=== PATIENT | female | born 1995 | race Caucasian/White ===

== ENCOUNTER → 2018-04-15 14:15 | Outpatient (CLI) | payer OTHER, SELFPAY ==
--- NOTE | 2018-04-15 14:18 | US_ITS ---
US transvaginal HISTORY: ITS.REASON: pelvic pain ORDERING PHYSICIAN: Sanchez Ivan MD PATIENT AGE: 23 years Comparison: None FINDINGS: Uterus measures 6 x 2.7 x 3.9 cm with a combined endometrial thickness of 2 mm. The uterus is retroverted. No obvious uterine mass. Endometrium has a smooth appearance. Left ovary is 2.7 x 2 cm and contains multiple small follicles. Right ovary is 3.8 x 2.2 cm and contains multiple small follicles the largest at approximately 1 cm. There is bilateral ovarian blood flow. No cul-de-sac fluid evident. IMPRESSION: 1. Retroverted uterus. 2. Polycystic appearance of the ovaries
== END ==
PROVIDERS: PCP Family Medicine; Visit Provider Obstetrics & Gynecology
DX: R10.2 Pelvic and perineal pain (principal)
CPT/HCPCS: 76830

== ENCOUNTER → 2018-05-06 10:35 | Outpatient (CLI) | payer OTHER, SELFPAY ==
[2018-05-06 10:39] LABS: Microscopic, Urine URINE MICROSCOPIC (MICROSCOPIC)
[2018-05-06 11:30] LABS: Basophils % 0.5 % (0.1-2.0); Eosinophils # 0.1 K/mm3 (0.0-0.4); Eosinophils % 0.8 % (0.1-12.0); Hemoglobin 13.3 g/dL (12.2-16.2); Lymphocytes % 28.1 K/mm3 (10-50); Mean Corpuscular HGB Conc 30.9 g/dL (31.8-35.4); Mean Corpuscular Hemoglobin 27.3 pg (27.0-31.2); Mean Corpuscular Volume 88.5 fl (81-99); Mean Platelet Volume 7.6 fl (7.4-10.4); Monocytes # 0.3 K/mm3 (0.1-1.0); Monocytes % 4.4 % (1.7-9.3); Neutrophils # 4.7 K/mm3 (1.8-7.8); Neutrophils % 66.1 % (37.0-80.0); Platelet Count 310 K/mm3 (142-424); Red Blood Count 4.86 M/mm3 (4.20-5.40); Red Cell Distribution Width 13.2 % (11.5-17.5); White Blood Count 7.2 K/mm3 (4.8-10.8)
[2018-05-06 12:06] LABS: Urine Pregnancy, HCG Qual. Negative (Negative)
[2018-05-06 12:18] LABS: Appearance,Urine CLEAR (Clear); Bilirubin,Urine Negative (Negative); Blood, Urine Negative (Negative); Color,Urine YELLOW (Yellow); Glucose,Urine (UA) Negative (Negative); Ketones,Urine TRACE (Negative); Leukocyte Esterase,Urine Negative (Negative); Nitrate,Urine Negative (Negative); PH,Urine 5.5 (5.0-8.5); Protein,Urine Negative (Negative); Specific Gravity, Urine >= 1.030 (1.005-1.030); Urobilinogen,Urine 0.2 EU/dl (0.2)
[2018-05-06 12:28] LABS: Bacteria,Urine Trace /lpf; Squamous Epithelial Cell,Urine Occasional #/hpf (0-5)
[2018-05-06 12:29] LABS: Mucus,Urine 3+ /lpf
[2018-05-06 12:33] LABS: Alanine Aminotransferase 28 U/L (12-78); Albumin Level 3.6 gm/dL (3.4-5.0); Alkaline Phosphatase 73 U/L (46-116); Anion Gap 13.9 mEq/L (5-15); Aspartate Amino Transferase 21 U/L (15-37); Bilirubin,Total 0.1 mg/dL (0.2-1.0); Blood Urea Nitrogen 12 mg/dL (7-18); Calcium 8.7 mg/dL (8.5-10.1); Carbon Dioxide 27 mmol/L (21.0-32.0); Chloride 106 mmol/L (98-107); Estimated Glomerular Filt Rate 104 ml/min (>60); GFR (African American) 125 ML/MIN (>60); Globulin 3.6 gm/dl (1.3-3.2); Glucose 93 mg/dL (74-106); Potassium 3.9 mmoL/L (3.5-5.1); Sodium 143 mmol/L (136-145); Total Protein,Serum 7.2 gm/dL (6.4-8.2)
== END ==
PROVIDERS: Visit Provider Obstetrics & Gynecology
DX: Z01.818 Encounter for other preprocedural examination (principal); R10.2 Pelvic and perineal pain
CPT/HCPCS: 36415; 80053; 81001; 81025; 85025

== ENCOUNTER → 2018-08-02 14:26 | Outpatient (REF) | payer OTHER, SELFPAY ==
[2018-08-02 14:33] LABS: Adenovirus F 40/41, stool Not Detected (NotDetected); Astrovirus Not Detected (NotDetected); Campylobacter Not Detected (NotDetected); Clostridium Difficile A/B, PCR Not Detected (NotDetected); Cryptosporidium Not Detected (NotDetected); Cyclospora Cayetanesis Not Detected (NotDetected); Entamoeba histolytica Not Detected (NotDetected); Enteroaggregative E coli Not Detected (NotDetected); Enteropathogenic E coli Not Detected (NotDetected); Enterotoxigenic E coli Not Detected (NotDetected); Giardia lamblia Not Detected (NotDetected); Norovirus Not Detected (NotDetected); Plesimonas Shigalloides, PCR Not Detected (NotDetected); Rotavirus A Not Detected (NotDetected); Salmonella, PCR Not Detected (NotDetected); Sapovirus Not Detected (NotDetected); Shiga-like toxin E coli Not Detected (NotDetected); Shigella Enterovasive E coli Not Detected (NotDetected); Vibrio Cholerae Not Detected (NotDetected); Vibrio, PCR Not Detected (NotDetected); Yersinia Entercolitica, PCR Not Detected (NotDetected)
== END ==
LOC: LAB 14:26
PROVIDERS: Visit Provider Nurse Practitioner Family
DX: R19.7 Diarrhea, unspecified (principal); K52.9 Noninfective gastroenteritis and colitis, unspecified
CPT/HCPCS: 87507

== ENCOUNTER → 2018-10-07 16:05 | Outpatient (CLI) | payer OTHER, SELFPAY ==
[2018-10-07 19:01] LABS: Glucose,Random 83 mg/dL (70-110)
[2018-10-11 10:35] LABS: Estrogen 181 pg/mL (.)
== END ==
PROVIDERS: Visit Provider Obstetrics & Gynecology
DX: E05.90 Thyrotoxicosis, unspecified without thyrotoxic crisis or storm (principal); Z13.1 Encounter for screening for diabetes mellitus; R68.82 Decreased libido
CPT/HCPCS: 36415; 82672; 82947; 84443

== ENCOUNTER → 2018-11-08 09:30 | Outpatient (POV) | payer OTHER, SELFPAY | PROVIDERS: Visit Provider Nurse Practitioner Acute Care | DX: Z00.00 Encounter for general adult medical examination without abnormal findings (principal) ==

== ENCOUNTER → 2018-12-22 07:15 | Outpatient (CLI) | payer OTHER, SELFPAY ==
[2018-12-24 12:26] LABS: H. pylori Breath Test Positive (Negative)
== END ==
PROVIDERS: Visit Provider Nurse Practitioner Acute Care
DX: K30 Functional dyspepsia (principal)
CPT/HCPCS: 83013

== ENCOUNTER → 2018-12-27 09:23 | Outpatient (POV) | payer OTHER, SELFPAY | PROVIDERS: Visit Provider Nurse Practitioner Acute Care | DX: Z00.00 Encounter for general adult medical examination without abnormal findings (principal) ==

== ENCOUNTER → 2019-02-15 08:19 | Outpatient (CLI) | payer OTHER, SELFPAY ==
[2019-02-16 14:28] LABS: H. pylori Breath Test Negative (Negative)
== END ==
PROVIDERS: Visit Provider Nurse Practitioner Acute Care
DX: K30 Functional dyspepsia (principal)
CPT/HCPCS: 83013

== ENCOUNTER → 2019-03-04 11:01 | Outpatient (CLI) | payer OTHER, SELFPAY ==
[2019-03-04 13:11] LABS: Monoscreen (Rapid) Negative (Negative)
[2019-03-05 18:02] LABS: EBV Ab VCA, IgM <36.0 U/mL (0.0-35.9); EBV Nuclear Antigen Ab, IgG 32.8 U/mL (0.0-17.9); Epstein-Barr Virus Early Ag Ab <9.0 U/mL (0.0-8.9)
== END ==
PROVIDERS: Visit Provider Nurse Practitioner
DX: R53.83 Other fatigue (principal)
CPT/HCPCS: 36415; 86318; 86663; 86664; 86665

== ENCOUNTER → 2019-05-09 15:07 | Outpatient (POV) | payer OTHER, BC, SELFPAY | PROVIDERS: PCP Nurse Practitioner; Visit Provider Nurse Practitioner Family | DX: Z00.00 Encounter for general adult medical examination without abnormal findings (principal) ==

== ENCOUNTER → 2019-05-10 06:36 | Outpatient (CLI) | payer OTHER, BC, SELFPAY ==
[2019-05-10 06:56] LABS: Basophils # 0.1 K/mm3 (0-0.2); Basophils % 0.8 % (0.1-2.0); Eosinophils # 0.1 K/mm3 (0.0-0.4); Hematocrit 38.8 % (37.0-47.0); Lymphocytes # 2.6 K/mm3 (0.7-4.5); Lymphocytes % 41.3 % (10-50); Mean Corpuscular HGB Conc 30.8 g/dL (31.8-35.4); Mean Corpuscular Volume 84.3 fl (81-99); Mean Platelet Volume 8.4 fl (7.4-10.4); Monocytes # 0.3 K/mm3 (0.1-1.0); Monocytes % 4.2 % (1.7-9.3); Neutrophils # 3.3 K/mm3 (1.8-7.8); Neutrophils % 51.7 % (37.0-80.0); Platelet Count 309 K/mm3 (142-424); Red Blood Count 4.61 M/mm3 (4.20-5.40); Red Cell Distribution Width 13.8 % (11.5-17.5); White Blood Count 6.3 K/mm3 (4.8-10.8)
[2019-05-10 07:07] LABS: Alanine Aminotransferase 26 U/L (12-78); Albumin Level 3.3 gm/dL (3.4-5.0); Albumin/Globulin Ratio 0.8 (1.1-1.8); Alkaline Phosphatase 67 U/L (46-116); Anion Gap 11.3 mEq/L (5-15); Aspartate Amino Transferase 23 U/L (15-37); Bilirubin,Total 0.2 mg/dL (0.2-1.0); Blood Urea Nitrogen 11 mg/dL (7-18); Calcium 8.7 mg/dL (8.5-10.1); Carbon Dioxide 28 mmol/L (21.0-32.0); Chloride 106 mmol/L (98-107); Creatinine,Serum 0.71 mg/dL (0.55-1.02); Estimated Glomerular Filt Rate 101 ml/min (>60); GFR (African American) 122 ML/MIN (>60); Glucose 93 mg/dL (74-106); Potassium 4.3 mmoL/L (3.5-5.1); Sodium 141 mmol/L (136-145); Total Protein,Serum 7.3 gm/dL (6.4-8.2)
[2019-05-10 07:29] LABS: HCG Qualitative, Serum Negative (Negative)
--- NOTE | 2019-05-10 09:45 | CT_ITS ---
CT abdomen pelvis w con CLINICAL INDICATION: ITS.REASON: LLQ PAIN, ABD BLOATING ORDERING PHYSICIAN: Rachael Hooper APRN PATIENT AGE: 24 years COMPARISON: None TECHNIQUE: Contrast Used:75ml Optiray 350 Oral Contrast: 450ml Redicat Axial images obtained with sagittal and coronal reformats. All CT scans at the facility use one or more dose reduction, viz: automated exposure control, ma/kV adjustment per patient size (including targeted exams where dose is matched to indication, i.e. head), or iterative reconstruction technique. FINDINGS: There is a 4 mm noncalcified nodule right lung base laterally and a 4 mm noncalcified nodule in the left lung bases and pleural region laterally. The liver, spleen, adrenal glands, pancreas, gallbladder, and kidneys have an unremarkable appearance. No renal or ureteral calculi. No hydronephrosis. Prior appendectomy. No intestinal obstruction or free air. No evidence of diverticulitis. No pelvic mass abnormal fluid collection or focal inflammatory change. No acute bony anomalies. Tiny umbilical hernia. No inguinal hernia. IMPRESSION: No acute finding CT abdomen pelvis.
== END ==
PROVIDERS: Visit Provider Nurse Practitioner Family
DX: R10.32 Left lower quadrant pain (principal); R14.0 Abdominal distension (gaseous)
CPT/HCPCS: 36415; 74177; 80053; 84703; 85025; Q9967

== ENCOUNTER → 2019-06-20 13:16 | Outpatient (POV) | payer OTHER, BC, SELFPAY | PROVIDERS: PCP Nurse Practitioner; Visit Provider Nurse Practitioner Family | DX: Z00.00 Encounter for general adult medical examination without abnormal findings (principal) ==

== ENCOUNTER → 2019-06-23 10:13 | Outpatient (CLI) | payer OTHER, BC, SELFPAY ==
--- NOTE | 2019-06-23 10:42 | US_ITS ---
PROCEDURE: US TRANSVAGINAL CLINICAL INDICATION: PELVIC PAIN COMPARISON: TRANVAG US transvaginal from 04/15/2018 FINDINGS: The uterus measures 7 x 3 x 5 cm with a combined endometrial thickness of 4 mm. The uterus is retroverted. There is a minimal amount of fluid in the cul-de-sac. No uterine mass. There is a small nabothian cyst The left ovary is 2.6 x 2.2 cm and contains small follicles. The right ovary is 2.7 x 1.6 cm also containing small follicles. IMPRESSION: Retroverted uterus with small amount of fluid in the cul-de-sac otherwise negative Dictated by: Ulisses Puga MD 06/23/2019 11:38 Signed by: <Electronically signed by Ulisses Puga MD in [place]> 06/23/2019 11:38
== END ==
PROVIDERS: PCP Nurse Practitioner; Visit Provider Obstetrics & Gynecology
DX: R10.2 Pelvic and perineal pain (principal)
CPT/HCPCS: 76830

== ENCOUNTER → 2019-07-07 07:30 | Outpatient (CLI) | payer OTHER, BC, SELFPAY ==
[2019-07-08 14:32] LABS: Miscellaneous Test COMMENT:
== END ==
PROVIDERS: PCP Family Medicine; Visit Provider Family Medicine
DX: R10.9 Unspecified abdominal pain (principal)
CPT/HCPCS: 36415

== ENCOUNTER → 2019-09-26 12:57 | Outpatient (POV) | payer OTHER, BC, SELFPAY ==
[2019-09-26 17:21] LABS: Alanine Aminotransferase 47 U/L (12-78); Albumin/Globulin Ratio 1.2 (1.1-1.8); Alkaline Phosphatase 93 U/L (46-116); Amylase 113 U/L (25-115); Anion Gap 15.8 mEq/L (5-15); Aspartate Amino Transferase 31 U/L (15-37); Bilirubin,Total 0.3 mg/dL (0.2-1.0); Blood Urea Nitrogen 10 mg/dL (7-18); Calcium 9.1 mg/dL (8.5-10.1); Carbon Dioxide 24 mmol/L (21.0-32.0); Chloride 105 mmol/L (98-107); Creatinine,Serum 0.75 mg/dL (0.55-1.02); Estimated Glomerular Filt Rate 95 ml/min (>60); GFR (African American) 115 ML/MIN (>60); Globulin 3.4 gm/dl (1.3-3.2); Glucose 77 mg/dL (74-106); Lipase 206 u/L (73-393); Potassium 3.8 mmoL/L (3.5-5.1); Sodium 141 mmol/L (136-145); Total Protein,Serum 7.4 gm/dL (6.4-8.2)
[2019-09-29 06:11] LABS: H. pylori Breath Test Negative (Negative)
== END ==
PROVIDERS: PCP Family Medicine; Visit Provider Nurse Practitioner Family
DX: B96.81 Helicobacter pylori [H. pylori] as the cause of diseases classified elsewhere (principal); K58.9 Irritable bowel syndrome, unspecified; R74.8 Abnormal levels of other serum enzymes
CPT/HCPCS: 36415; 80053; 82150; 83013; 83690

== ENCOUNTER → 2019-11-22 14:54 | Outpatient (CLI) | payer OTHER, BC, SELFPAY ==
--- NOTE | 2019-11-22 15:00 | CT_ITS ---
PROCEDURE: CT CHEST WO CON CLINICAL INDICATION: PULMONARY NODULES COMPARISON: ABDPELW CT abdomen pelvis w con from 05/10/2019 TECHNIQUE: Axial images obtained with sagittal and coronal reformats. All CT scans at the facility use one or more dose reduction, viz: automated exposure control, ma/kV adjustment per patient size (including targeted exams where dose is matched to indication, i.e. head), or iterative reconstruction technique. FINDINGS: Scattered small lymph nodes are present in the axilla. There is soft tissue density in the anterior mediastinum consistent with residual thymic tissue. No mediastinal or hilar mass or adenopathy. Normal heart size. There is a stable 4 mm nodule in the right lower lobe the. No lobar consolidation or collapse is evident. Subpleural nodular opacity is present in the left lower lobe laterally at 3 mm unchanged. No acute bony findings. Upper abdominal images are unremarkable. IMPRESSION: There are 2 small nodular opacities in the lung bases as described above which are stable and are probably benign. No other significant anomalies are evident. Dictated by: Ulisses Puga MD 11/23/2019 16:19 Electronically signed by Ulisses Puga MD in [place] 11/23/2019 16:19
== END ==
PROVIDERS: Visit Provider Nurse Practitioner
DX: R91.8 Other nonspecific abnormal finding of lung field (principal)
CPT/HCPCS: 71250

== ENCOUNTER → 2020-06-08 20:55 | Outpatient (CLI) | payer OTHER, BC, SELFPAY ==
[2020-06-08 22:15] LABS: Coronavirus 19 IgG Antibody Positive (Negative); Coronavirus 19 IgM Antibody Negative (Negative)
== END ==
PROVIDERS: Visit Provider Physician Assistant
DX: Z20.828 Contact with and (suspected) exposure to other viral communicable diseases (principal)
CPT/HCPCS: 36415; 86328

== ENCOUNTER → 2020-06-14 19:41 | Outpatient (CLI) | payer OTHER, BC, SELFPAY ==
[2020-06-14 20:22] LABS: T4 (Thyroxine) 14.4 ug/dl (5.53-11.0)
[2020-06-14 20:36] LABS: Thyroid Stimulating Hormone 1.13 uIU/mL (0.465-4.68)
== END ==
PROVIDERS: Visit Provider Nurse Practitioner
DX: E03.9 Hypothyroidism, unspecified (principal)
CPT/HCPCS: 36415; 84436; 84443

== ENCOUNTER → 2020-06-26 18:42 | Outpatient (CLI) | payer OTHER, BC, SELFPAY ==
--- NOTE | 2020-06-26 18:48 | XR_ITS ---
PROCEDURE: XR LUMBAR SPINE MIN 4V CLINICAL INDICATION: LOW BACK PAIN,SCIATICA ON RIGHT SIDE COMPARISON: CT ABDPELW CT abdomen pelvis w con from 05/10/2019 FINDINGS: No fracture or dislocation. No lytic or blastic change. There is normal mineralization. There is normal alignment. No fracture or dislocation. No lytic or blastic change. Other findings:None. IMPRESSION: No acute findings. Dictated by: Ulisses Puga MD 06/26/2020 21:34 Ulisses Puga MD in [place] 06/26/2020 21:34
== END ==
PROVIDERS: Visit Provider Nurse Practitioner
DX: M54.41 Lumbago with sciatica, right side (principal)
CPT/HCPCS: 72110

== ENCOUNTER → 2020-07-31 19:52 | Outpatient (CLI) | payer OTHER, BC, SELFPAY ==
[2020-07-31 20:56] LABS: 25-OH Vitamin D, Total 78.8 ng/mL (30-100)
== END ==
PROVIDERS: Visit Provider Nurse Practitioner
DX: E55.9 Vitamin D deficiency, unspecified (principal)
CPT/HCPCS: 36415; 82306

== ENCOUNTER → 2021-07-31 12:44 | Outpatient (CLI) | payer BC, SELFPAY ==
[2021-07-31 13:18] LABS: Coronavirus 19, PCR Not Detected (NotDetected); Influenza A, PCR Not Detected (NotDetected); Influenza B, PCR Not Detected (NotDetected)
== END ==
PROVIDERS: PCP Nurse Practitioner; Visit Provider Nurse Practitioner
DX: Z20.822 Contact with and (suspected) exposure to COVID-19 (principal)
CPT/HCPCS: C9803; U0003; U0005

== ENCOUNTER → 2021-09-04 16:15 | Outpatient (CLI) | payer BC, SELFPAY ==
[2021-09-04 18:23] LABS: Free T4 (Free Thyroxine) 0.91 ng/dl (0.78-2.19)
[2021-09-04 18:37] LABS: Thyroid Stimulating Hormone 0.62 uIU/mL (0.465-4.68)
== END ==
PROVIDERS: Visit Provider Nurse Practitioner
DX: E03.9 Hypothyroidism, unspecified (principal)
CPT/HCPCS: 36415; 84439; 84443

== ENCOUNTER → 2021-09-13 23:34 | Outpatient (CLI) | payer BC, OTHER, SELFPAY ==
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
== END ==
PROVIDERS: Visit Provider Nurse Practitioner
DX: M54.50 Low back pain, unspecified (principal)
CPT/HCPCS: 72110

== ENCOUNTER → 2021-10-01 15:22 | Outpatient (CLI) | payer BC, SELFPAY ==
--- NOTE | 2021-10-01 15:22 | US_ITS ---
PROCEDURE: US TRANSVAGINAL CLINICAL INDICATION: low left quad pain COMPARISON: US US TRANSVAGINAL from 06/23/2019 FINDINGS: Retroverted uterus UTERUS: 6cm x 4cmx 3cm with a combined endometrial thickness of 2.3mm LEFT OVARY: [id number] with a volume of 3.2ml. RIGHT OVARY: [id number] with a volume of 2.6ml. Bilateral ovarian blood flow noted. No cul-de-sac fluid IMPRESSION: Retroverted uterus otherwise negative pelvic ultrasound Dictated by: Ulisses Puga MD 10/01/2021 17:06 Ulisses Puga MD in [place] 10/01/2021 17:06
== END ==
PROVIDERS: PCP Nurse Practitioner; Visit Provider Nurse Practitioner Obstetrics & Gynecology
DX: R10.32 Left lower quadrant pain (principal)
CPT/HCPCS: 76830

== ENCOUNTER → 2022-02-22 11:49 | Outpatient (CLI) | payer BC, SELFPAY ==
[2022-02-22 14:24] LABS: Triiodothryronine (T3) Uptake 24 % (23.5-40.5)
[2022-02-22 14:25] LABS: Free Thyroxine Index 3.3 ug/dL (5.93-13.13); T4 (Thyroxine) 13.8 ug/dl (5.53-11.0)
[2022-02-22 14:38] LABS: Thyroid Stimulating Hormone 0.69 uIU/mL (0.465-4.68)
== END ==
PROVIDERS: PCP Nurse Practitioner; Visit Provider Nurse Practitioner Obstetrics & Gynecology
DX: E03.9 Hypothyroidism, unspecified (principal)
CPT/HCPCS: 36415; 84436; 84443; 84479

== ENCOUNTER → 2023-01-08 16:31 | Outpatient (CLI) | payer BC, SELFPAY ==
[2023-01-08 16:54] LABS: Basophils # 0.1 K/mm3 (0-0.2); Basophils % 1.1 % (0.1-2.0); Eosinophils # 0.2 K/mm3 (0.0-0.4); Eosinophils % 2.3 % (0.1-12.0); Hematocrit 39.8 % (37.0-47.0); Hemoglobin 12.8 g/dL (12.2-16.2); Lymphocytes % 34.2 % (10-50); Mean Corpuscular HGB Conc 32.1 g/dL (31.8-35.4); Mean Corpuscular Hemoglobin 28.8 pg (27.0-31.2); Mean Corpuscular Volume 89.7 fl (81-99); Mean Platelet Volume 7.8 fl (7.4-10.4); Monocytes # 0.3 K/mm3 (0.1-1.0); Monocytes % 3.8 % (1.7-9.3); Neutrophils # 5.1 K/mm3 (1.8-7.8); Neutrophils % 58.6 % (37.0-80.0); Platelet Count 416 K/mm3 (142-424); Red Blood Count 4.43 M/mm3 (4.20-5.40); Red Cell Distribution Width 13.2 % (11.5-17.5); White Blood Count 8.7 K/mm3 (4.8-10.8)
[2023-01-08 17:07] LABS: Alanine Aminotransferase 18 U/L (12-78); Albumin Level 4.2 g/dl (3.5-5.0); Albumin/Globulin Ratio 1.4 (1.1-1.8); Alkaline Phosphatase 61 U/L (38-126); Anion Gap 7.7 mEq/L (5-15); Aspartate Amino Transferase 29 U/L (14-36); Bilirubin,Total 0.3 mg/dl (0.2-1.3); Blood Urea Nitrogen 11 mg/dl (7-17); Calcium 8.5 mg/dl (8.4-10.2); Carbon Dioxide 27 mmol/L (22.0-30.0); Chloride 105 mmol/L (98-107); Estimated Glomerular Filt Rate 86 ml/min (>60); GFR (African American) 104 ML/MIN (>60); Globulin 2.9 g/dL (1.3-3.2); Glucose 85 mg/dl (74-100); Potassium 3.7 mmoL/L (3.5-5.1); Sodium 136 mmol/L (136-145); Total Protein,Serum 7.1 g/dl (6.3-8.2)
[2023-01-08 17:29] LABS: HCG,Quantitative < 2 mIU/ml (0-5.42)
== END ==
PROVIDERS: PCP Nurse Practitioner; Visit Provider Nurse Practitioner Obstetrics & Gynecology
DX: Z01.812 Encounter for preprocedural laboratory examination; N92.6 Irregular menstruation, unspecified
CPT/HCPCS: 36415; 80053; 84702; 85025

== ENCOUNTER 2023-01-13 05:54 | Day surgery (SDC) | payer BC, OTHER, SELFPAY ==
[2023-01-09 10:49] VITALS: BMI 34.5
[2023-01-13] VITALS (11 sets, daily range): BP systolic 139–154; BP diastolic 71–98; PULSE 48–89; RESP 16–19; TEMP 36.2–36.9; O2SAT 98–100
--- NOTE | 2023-01-13 08:06 | EXP.OP.NOTE ---
Date of procedure: 01/13/23 Pre-op Diagnosis:: Menorrhagia dysfunctional uterine bleeding Post-op Diagnosis:: Menorrhagia, dysfunctional uterine bleeding, possible endometritis Procedure performed:: Hysteroscopy, dilation and curettage Surgeon:: Bam Stapleton MD WEIGH TANK OPERATOR:: Sohan Garner Anesthesia: MAC Estimated blood loss (mL): 50 Clinical Note:: She is a 27-year-old lady who complains of extremely heavy bleeding. She has menorrhagia as far as well as bleeding between her periods. We have tried control pills and despite this she continued to have heavy bleeding. As result of that she is offered hysteroscopy D&C. Operative findings:: She had a thin endometrium that was very erythematous possibly consistent with endometritis. Both tubal ostia were seen and appeared normal. Operative note:: She was taken the operating room where MAC anesthesia was found be adequate. She was prepped draped normal sterile fashion lithotomy position. Weighted speculum is placed in vagina. The anterior lip of the cervix was grasped with a tenaculum and the cervix was then dilated to approximately 5 mm. I then inserted a hysteroscope into the uterine cavity. The findings were as previously dictated. I then performed a gentle curettage. I then injected approximately 30 cc of ropivacaine at the 3:00, 5:00, 7:00 and 9:00 positions of the cervix. She tolerated the procedure well and was taken the recovery of her next condition. All sponge, instrument and needle counts were correct. The estimated blood loss was less than 50 cc. Condition: stable Disposition: PACU Specimens:: Endometrial curettings Complications:: None
--- NOTE | 2023-01-13 08:56 | EXP.ANES.CKL ---
[facility] Disclaimer: The information contained in this section may have been updated after the patient was seen, as this information can be updated by other users. Medical History Anxiety Asthma Depression Endometriosis Generalized anxiety disorder Hypertension Hypothyroid Migraine Pelvic inflammatory disease (PID) Surgical History Hx of dilation and curettage Family History Father Family history of myocardial infarction Mother Family history of myocardial infarction Other Hypertension Social History (Updated 01/13/23 @ 06:20 by Vicky Paniagua RN) Smoking Status: Never smoker second hand exposure: No alcohol intake: never substance use type: denies use current occupational status: employed Travel in the last 8 weeks: None household members: spouse housing: house number of children: 0 current occupational exposures/hazards: No [facility] Anesthesia Checklist Patient Identification Patient Identification: Arm Band and Verbal (Name & ) Structural Data Admitted From: Home Planned Operative Procedure/s: Hysteroscopy/D&C Consent for Planned Operative Procedure(s) Verified: Yes Verified Documents: Surgical Consent NPO Status Verified Time NPO: 00:00 Chart Verification Results Verified: HCG Additional verifications Anesthesia Reactions: No Hx Blood Transfusions: No Blood Transfusion Reaction: No Airway Assessment C-Spine Mobility Assessed: Yes TMJ Mobility Assessed: Yes Dentition: Good Dentition Neurological Assessment Level of Consciousness: Awake, Alert and Appropriate Anesthesia Plan Anesthesia Risk discussed: Yes ASA Class: II Anesthesia Type: MAC
== END 2023-01-13 09:10 | disposition home or self-care (01) ==
PROVIDERS: PCP Nurse Practitioner; Visit Provider Nurse Practitioner Obstetrics & Gynecology
PROC: 0UDB8ZZ Extraction of Endometrium, Via Natural or Artificial Opening Endoscopic (ICD-10-PCS; CPT 58558; principal; 2023-01-13 07:30)
DX: N92.0 Excessive and frequent menstruation with regular cycle (principal); N93.8 Other specified abnormal uterine and vaginal bleeding; Z79.899 Other long term (current) drug therapy
CPT/HCPCS: 58558; 96374; J2405

== ENCOUNTER 2023-06-02 13:46 | Emergency (ER) | payer BC, SELFPAY ==
[2023-06-02 13:48] VITALS: BP 170/111; PULSE 87; RESP 18; TEMP 36.6; O2SAT 100; BMI 33.6
--- NOTE | 2023-06-02 14:34 | HMH.EDGENADL ---
Discharge Plan Disposition Patient Disposition: Home, Self-Care Condition: Good Prescriptions Prescriptions: No Action aripiprazole [Abilify] 5 mg tablet 5 mg PO QHS Qty: 30 1RF bupropion HCl [Wellbutrin XL] 150 mg tablet extended release 24 hr 150 mg PO DAILY Qty: 30 1RF levothyroxine 25 mcg tablet 25 mcg PO DAILY benazepril 10 mg tablet 10 mg PO DAILY Lo Loestrin Fe 1 mg-10 mcg (24)/10 mcg (2) tablet 1 tab PO DAILY Qty: 28 11RF levonorgestrel-ethinyl estrad [Aviane] 0.1-20 mg-mcg tablet 1 tab PO DAILY oxycodone-acetaminophen [Percocet] 5-325 mg Tablet 1 tab PO Q4-6H PRN (Reason: severe pain.) Qty: 6 0RF doxycycline hyclate 100 mg tablet,delayed release (DR/EC) 100 mg PO BID Qty: 30 0RF Referrals Follow up/Referrals: Shanique Acosta APRN [Primary Care Provider] - See instructions Activity Restrictions/Add. Instructions Additional Instructions/Restrictions: You were evaluated in the emergency department today. You may take Benadryl at home every 8-12 hours as you need to for symptoms. Follow-up with your primary care provider closely. I recommend stopping your aripiprazole and notifying them of the change. return to the emergency department for any new or worsening symptoms. Clinical Impressions Clinical Impression: Acute dystonic reaction due to drugs Instructions Patient Instructions: Dystonia Movement Disorders, DI for Adverse Drug Reaction -- Other Discharge ED Provider: Renetta Cervantes General Adult HPI General Chief complaint: Allergic Reaction Stated complaint: possible allergic reaction to medication, soa Time Seen by Provider: 06/02/23 14:20 Mode of Arrival: Ambulatory Source of Information: Patient Limitations: No Limitations Description of Symptoms (Recalled from ER Triage Doc. by RN): Pt reports starting new medication for anxiety/depression on 05/22/23, concerned having a reaction to medication. Pt reports 4 days ago began feeling lethargic, states has been feeling like her throat is tight and having trouble breathing. Pt reports took benadryl earlier today for throat felling swollen, also took advil because she felt feverish . Pt reports wellbutrin dosage was lowered and started on abilify on 05/22/23. History of Present Illness HPI narrative: This patient is a 28-year-old female with a history of generalized anxiety disorder presented to the emergency department for evaluation with concern for possible drug reaction. Patient reports that she started taking aripiprazole on 05/22/2023. She noted fatigue after taking it, but she was tolerating this. She stated that for the last 2 days, she has had an abnormal feeling to her tongue and feels like she cannot control her tongue movements. She also notes that her mouth twitches. Her symptoms improved with Benadryl, which she took with concern that she may be having allergic reaction, however they started to return. Given this, she decided to come to the emergency department because she was afraid that she is having an adverse drug reaction. She also takes Wellbutrin at home. She denies any other concerns at this time, such as fevers, chills, headache, vision changes, chest pain, shortness of breath, or other concerns. Related Data Home Medications Medication Instructions Recorded Confirmed levothyroxine 25 mcg tablet 25 mcg PO DAILY thyroid 07/03/21 05/22/23 benazepril 10 mg tablet 10 mg PO DAILY High blood pressure 12/16/22 05/22/23 levonorgestrel-ethinyl estradiol 1 tab PO DAILY control 01/09/23 05/22/23 0.1 mg-20 mcg tablet (Aviane) Previous Rx's Medication Instructions Recorded doxycycline hyclate 100 mg 100 mg PO BID #30 tabs 01/13/23 tablet,delayed release oxycodone-acetaminophen 5 mg-325 1 tab PO Q4-6H PRN severe pain. #6 01/13/23 mg tablet (Percocet) tabs norethindrone 1 mg-ethinyl 1 tab PO DAILY #28 tabs 04/01/23 estradiol 10 mcg (24)-iron 10 mcg(2) tablet (Lo Loestrin Fe)
[2023-06-02 14:48] LABS: Basophils # 0.1 K/mm3 (0-0.2); Basophils % 0.8 % (0.1-2.0); Eosinophils # 0.2 K/mm3 (0.0-0.4); Eosinophils % 1.9 % (0.1-12.0); Hematocrit 41.4 % (37.0-47.0); Hemoglobin 13.7 g/dL (12.2-16.2); Lymphocytes # 2.6 K/mm3 (0.7-4.5); Lymphocytes % 28.7 % (10-50); Mean Corpuscular HGB Conc 33.1 g/dL (31.8-35.4); Mean Corpuscular Hemoglobin 28.9 pg (27.0-31.2); Mean Corpuscular Volume 87.1 fl (81-99); Mean Platelet Volume 8.7 fl (7.4-10.4); Monocytes # 0.3 K/mm3 (0.1-1.0); Monocytes % 3.6 % (1.7-9.3); Neutrophils # 5.8 K/mm3 (1.8-7.8); Neutrophils % 65.1 % (37.0-80.0); Platelet Count 329 K/mm3 (142-424); Red Blood Count 4.75 M/mm3 (4.20-5.40); Red Cell Distribution Width 13.1 % (11.5-17.5); White Blood Count 8.9 K/mm3 (4.8-10.8)
[2023-06-02 15:19] LABS: Blood Urea Nitrogen 9 mg/dl (7-17); Calcium 8.9 mg/dl (8.4-10.2); Carbon Dioxide 25 mmol/L (22.0-30.0); Chloride 109 mmol/L (98-107); Creatinine Clearance Estimated 163 mL/min (50-200); Estimated Glomerular Filt Rate 100 ml/min (>60); GFR (African American) 121 ML/MIN (>60); Glucose 88 mg/dl (74-100); Sodium 141 mmol/L (136-145)
[2023-06-02 15:39] VITALS: BP 159/99; PULSE 77; RESP 20; TEMP 36.6; O2SAT 98
== END 2023-06-02 15:41 | disposition home or self-care (01) ==
PROVIDERS: Emergency Provider Emergency Medicine; PCP Nurse Practitioner
DX: R53.83 Other fatigue (principal); R06.89 Other abnormalities of breathing; G24.9 Dystonia, unspecified; T43.595A Adverse effect of other antipsychotics and neuroleptics, initial encounter; F41.1 Generalized anxiety disorder; J45.909 Unspecified asthma, uncomplicated; F33.9 Major depressive disorder, recurrent, unspecified; I10 Essential (primary) hypertension; E03.9 Hypothyroidism, unspecified
CPT/HCPCS: 80048; 85025; 96361; 96374; 99284; J2405

== ENCOUNTER → 2023-06-23 12:33 | Outpatient (CLI) | payer BC, SELFPAY ==
[2023-06-23 13:07] LABS: Basophils # 0.1 K/mm3 (0-0.2); Basophils % 0.8 % (0.1-2.0); Eosinophils # 0.2 K/mm3 (0.0-0.4); Eosinophils % 1.7 % (0.1-12.0); Hematocrit 41.4 % (37.0-47.0); Hemoglobin 13.7 g/dL (12.2-16.2); Lymphocytes # 2.9 K/mm3 (0.7-4.5); Lymphocytes % 32.2 % (10-50); Mean Corpuscular Hemoglobin 29.4 pg (27.0-31.2); Mean Corpuscular Volume 89.1 fl (81-99); Monocytes # 0.4 K/mm3 (0.1-1.0); Monocytes % 4.8 % (1.7-9.3); Neutrophils # 5.5 K/mm3 (1.8-7.8); Neutrophils % 60.5 % (37.0-80.0); Platelet Count 326 K/mm3 (142-424); Red Blood Count 4.65 M/mm3 (4.20-5.40); Red Cell Distribution Width 13.2 % (11.5-17.5)
[2023-06-23 14:02] LABS: Alanine Aminotransferase 24 U/L (12-78); Albumin Level 3.7 g/dl (3.5-5.0); Albumin/Globulin Ratio 1.2 (1.1-1.8); Alkaline Phosphatase 62 U/L (38-126); Aspartate Amino Transferase 28 U/L (14-36); Bilirubin,Total 0.3 mg/dl (0.2-1.3); Blood Urea Nitrogen 10 mg/dl (7-17); Carbon Dioxide 25 mmol/L (22.0-30.0); Estimated Glomerular Filt Rate 85 ml/min (>60); GFR (African American) 103 ML/MIN (>60); Globulin 3.1 g/dL (1.3-3.2); Total Protein,Serum 6.8 g/dl (6.3-8.2)
[2023-06-23 14:03] LABS: Calcium 9.2 mg/dl (8.4-10.2); Chol/HDL Ratio 3.6 (1-3.5); Cholesterol 190 mg/dl (140-200); Glucose 94 mg/dl (74-100); HDL Cholesterol 53 mg/dl (40-60); Triglycerides 153 mg/dl (30-150); VLDL Cholesterol 31 mg/dL (0-40)
[2023-06-23 14:11] LABS: 25-OH Vitamin D, Total 92.3 ng/mL (30-100)
[2023-06-23 14:26] LABS: Free T4 (Free Thyroxine) 0.83 ng/dl (0.78-2.19)
[2023-06-23 15:01] LABS: Direct LDL Cholesterol 106.64 mg/dL (100-129)
[2023-06-23 16:05] LABS: Vitamin B12 383 pg/mL (239-931)
[2023-06-23 16:16] LABS: Chloride 107 mmol/L (98-107); Sodium 139 mmol/L (136-145)
[2023-06-23 16:17] LABS: Anion Gap 11.1 mEq/L (5-15); Potassium 4.1 mmoL/L (3.5-5.1)
[2023-06-24 03:56] LABS: Estradiol 98.2 pg/mL (.); FSH 2.8 mIU/mL (.); Progesterone 3.7 ng/mL (.); Prolactin 25.1 ng/mL (4.8-23.3)
== END ==
PROVIDERS: PCP Nurse Practitioner; Visit Provider Nurse Practitioner
DX: E03.9 Hypothyroidism, unspecified (principal); E55.9 Vitamin D deficiency, unspecified; R53.83 Other fatigue; R53.81 Other malaise; Z79.899 Other long term (current) drug therapy
CPT/HCPCS: 36415; 80053; 80061; 82306; 82607; 82670; 83001; 83002; 84144; 84146; 84439; 84443; 85025

== ENCOUNTER 2024-01-27 16:49 | Outpatient (CLI) | payer BC, SELFPAY ==
[2024-01-29 18:10] LABS: QuantiFERON-TB Gold Plus Negative (Negative)
== END 2024-01-27 23:59 ==
LOC: LAB 16:50
PROVIDERS: PCP Nurse Practitioner; Visit Provider Nurse Practitioner
DX: Z11.1 Encounter for screening for respiratory tuberculosis (principal)
CPT/HCPCS: 36415; 86480

== ENCOUNTER 2024-10-17 11:11 | Outpatient (CLI) | payer BC, SELFPAY ==
[2024-10-17 11:47] LABS: Hemoglobin A1C 4.5 % (4.0-6.0)
[2024-10-17 12:09] LABS: Albumin/Globulin Ratio 1.4 (1.1-1.8)
[2024-10-17 12:22] LABS: 25-OH Vitamin D, Total 82.9 ng/mL (30-100)
[2024-10-17 12:24] LABS: Alanine Aminotransferase 22 U/L (12-78); Alkaline Phosphatase 35 U/L (38-126); Aspartate Amino Transferase 35 U/L (14-36); Bilirubin,Total 0.5 mg/dl (0.2-1.3); Blood Urea Nitrogen 17 mg/dl (7-17); Calcium 9.3 mg/dl (8.4-10.2); Carbon Dioxide 25 mmol/L (22.0-30.0); Chloride 107 mmol/L (98-107); Estimated Glomerular Filt Rate 74 ml/min (>60); GFR (African American) 90 ML/MIN (>60); Globulin 2.8 g/dL (1.3-3.2); Glucose 61 mg/dl (74-100); Magnesium 1.9 mg/dl (1.6-2.3); Sodium 138 mmol/L (136-145); Total Protein,Serum 6.8 g/dl (6.3-8.2); Uric Acid 2.7 mg/dl (2.5-6.2)
[2024-10-17 12:55] LABS: Thyroid Stimulating Hormone 1.56 uIU/mL (0.465-4.68)
[2024-10-17 13:10] LABS: Basophils # 0.1 K/mm3 (0-0.2); Eosinophils # 0.1 K/mm3 (0.0-0.4); Eosinophils % 1.4 % (0.1-12.0); Hematocrit 38.7 % (37.0-47.0); Hemoglobin 12.8 g/dL (12.2-16.2); Lymphocytes # 2.2 K/mm3 (0.7-4.5); Lymphocytes % 31.5 % (10-50); Mean Corpuscular HGB Conc 33.1 g/dL (31.8-35.4); Mean Corpuscular Hemoglobin 28.5 pg (27.0-31.2); Mean Corpuscular Volume 85.9 fl (81-99); Mean Platelet Volume 7.6 fl (7.4-10.4); Monocytes # 0.4 K/mm3 (0.1-1.0); Monocytes % 5.4 % (1.7-9.3); Neutrophils # 4.2 K/mm3 (1.8-7.8); Neutrophils % 60.7 % (37.0-80.0); Platelet Count 340 K/mm3 (142-424); Red Blood Count 4.51 M/mm3 (4.20-5.40)
[2024-10-17 13:43] LABS: Folate 8.81 ng/mL
[2024-10-18 09:16] LABS: Estradiol <5.0 pg/mL (.); FSH 4.1 mIU/mL (.); Progesterone 0.1 ng/mL (.); Testosterone,Total 8 ng/dL (13-71)
[2024-10-20 15:09] LABS: Vitamin B1 138.4 nmol/L (66.5-200.0)
[2024-10-21 04:08] LABS: Vitamin B6 5.4 ug/L (3.4-65.2)
== END 2024-10-17 23:59 | disposition home or self-care (01) ==
LOC: LAB 11:12
PROVIDERS: Visit Provider Obstetrics & Gynecology
DX: N93.9 Abnormal uterine and vaginal bleeding, unspecified (principal)
CPT/HCPCS: 36415; 80050; 80053; 82306; 82670; 82746; 83001; 83036; 83735; 84144; 84207; 84403; 84425; 84443; 84550; 85025

== ENCOUNTER 2024-10-24 10:47 | Outpatient (CLI) | payer BC, SELFPAY ==
--- NOTE | 2024-10-24 10:51 | US_ITS ---
PROCEDURE: US TRANSVAGINAL CLINICAL INDICATION: AUB and Menorrhagia COMPARISON: US TRANVAG US transvaginal from 04/15/2018 US US TRANSVAGINAL from 06/23/2019 US US TRANSVAGINAL from 10/01/2021 FINDINGS: Transvaginal sonographic images of the pelvis were obtained. UTERUS: 6.7cm x 4.3cmx 2.8cm retroflexed an axial with a combined endometrial thickness of 3.2mm. There is a small amount of fluid within the endometrium. There is a small hyperechoic area within the endometrium that may be a polyp. LEFT OVARY: 2.5cmx2.7oeh0yi with a volume of 3.4ml. There is a small ovoid, elongated follicle in the left ovary that measures 1.6 cm x 0.5 cm x 1.5 cm. RIGHT OVARY: 2.6cmx 2.8cmx1.0cm with a volume of 4.6ml. There are multiple small peripheral follicles. Both ovaries are seen and appear normal. Doppler flow to both ovaries are seen. There is no fluid in the cul-de-sac. IMPRESSION: 1. Retroverted and axial uterus normal in shape and size. The endometrium is thin. Within the endometrial canal there is a small amount of fluid. There is a round hyperechoic area within the endometrium that may represent a small polyp. 2. Both ovaries are seen and appear normal. The right ovary appears somewhat polycystic. There is an ovoid shaped follicle in the left ovary measuring 1.6 cm. 3. No fluid in the cul-de-sac. Dictated by: Bam Stapleton MD 10/24/2024 16:23 Bam Stapleton MD in [place] 10/24/2024 16:23
== END 2024-10-24 23:59 | disposition home or self-care (01) ==
LOC: RAD 10:48
PROVIDERS: Visit Provider Obstetrics & Gynecology
DX: N93.9 Abnormal uterine and vaginal bleeding, unspecified (principal); N92.4 Excessive bleeding in the premenopausal period
CPT/HCPCS: 76830

== ENCOUNTER 2024-12-09 10:59 | Outpatient (CLI) | payer BC, SELFPAY ==
[2024-12-09 11:41] LABS: Basophils % 0.6 % (0.1-2.0); Eosinophils # 0.1 K/mm3 (0.0-0.4); Eosinophils % 1.1 % (0.1-12.0); Hematocrit 35.6 % (37.0-47.0); Hemoglobin 11.7 g/dL (12.2-16.2); Lymphocytes # 2.5 K/mm3 (0.7-4.5); Lymphocytes % 37.2 % (10-50); Mean Corpuscular HGB Conc 32.9 g/dL (31.8-35.4); Mean Corpuscular Hemoglobin 27.7 pg (27.0-31.2); Mean Corpuscular Volume 84.4 fl (81-99); Mean Platelet Volume 10.2 fl (7.4-10.4); Monocytes # 0.4 K/mm3 (0.1-1.0); Monocytes % 6.2 % (1.7-9.3); Neutrophils # 3.6 K/mm3 (1.8-7.8); Neutrophils % 54.6 % (37.0-80.0); Platelet Count 251 K/mm3 (142-424); Red Blood Count 4.22 M/mm3 (4.20-5.40); Red Cell Distribution Width 13.8 % (11.5-17.5); White Blood Count 6.6 K/mm3 (4.8-10.8)
[2024-12-09 11:58] LABS: Alanine Aminotransferase 29 U/L (12-78); Albumin Level 4.1 g/dl (3.5-5.0); Albumin/Globulin Ratio 1.6 (1.1-1.8); Alkaline Phosphatase 42 U/L (38-126); Anion Gap 11.6 mEq/L (5-15); Aspartate Amino Transferase 33 U/L (14-36); Blood Urea Nitrogen 17 mg/dl (7-17); Carbon Dioxide 25 mmol/L (22.0-30.0); Chloride 107 mmol/L (98-107); Estimated Glomerular Filt Rate 85 ml/min (>60); GFR (African American) 103 ML/MIN (>60); Globulin 2.6 g/dL (1.3-3.2); Glucose 88 mg/dl (74-100); Potassium 4.6 mmoL/L (3.5-5.1); Sodium 139 mmol/L (136-145); Total Protein,Serum 6.7 g/dl (6.3-8.2)
[2024-12-09 11:59] LABS: Bilirubin,Total 0.1 mg/dl (0.2-1.3)
[2024-12-09 12:17] LABS: HCG,Quantitative < 2 mIU/ml (0-5.42)
== END 2024-12-09 23:59 | disposition home or self-care (01) ==
LOC: PREOP 11:01
PROVIDERS: PCP Nurse Practitioner; Visit Provider Obstetrics & Gynecology
DX: N93.9 Abnormal uterine and vaginal bleeding, unspecified (principal)
CPT/HCPCS: 80053; 84702; 85025

== ENCOUNTER 2024-12-14 06:07 | Day surgery (SDC) | payer BC, SELFPAY ==
[2024-12-09 11:31] VITALS: BMI 29.0
[2024-12-14] VITALS (10 sets, daily range): BP systolic 135–150; BP diastolic 81–97; PULSE 65–89; RESP 14–18; TEMP 36.2–36.5; O2SAT 98–100
[2024-12-14] MEDS: LACTATED RINGERS 1000ML 1,000 ML 25 ML IV (07:00)
[2024-12-14] MEDS: ACETAMINOPHEN 500MG TAB 1000 MG PO (07:00)
--- NOTE | 2024-12-14 08:00 | EXP.ANES.CKL ---
[facility] Disclaimer: The information contained in this section may have been updated after the patient was seen, as this information can be updated by other users. Medical History Bipolar II disorder Abnormal uterine bleeding Recurrent major depression resistant to treatment Asthma Endometriosis Pelvic inflammatory disease (PID) Migraine Depression Anxiety Hypothyroid Hypertension Generalized anxiety disorder Surgical History History of hysteroscopy Hx of dilation and curettage Family History Father Family history of myocardial infarction Mother Family history of myocardial infarction Other Hypertension Social History Smoking Status: Never smoker second hand exposure: No alcohol intake: never substance use type: denies use current occupational status: employed Travel in the last 8 weeks: None household members: spouse housing: house number of children: 0 current occupational exposures/hazards: No Have you lived/traveled outside [place] in past 30 days?: No Contact w/someone who lives/traveled outside US past 30 days?: No Exposure to someone with infectious disease in past 14 days?: No Do you have a fever (greater than 100.4 F or 38 C)?: No Have you tested positive for COVID-19: No Exposed to someone with COVID-19 in past 14 days?: No Do you have a sore throat?: No Do you have a cough?: No Do you have any weakness?: No Do you have any diarrhea?: No Are you experiencing any unusual bleeding?: No Do you have any muscle aches/pain?: No Do you have any abdominal pain?: No Are you experiencing loss of taste or smell?: No [facility] Anesthesia Checklist Patient Identification Patient Identification: Arm Band and Family Structural Data Admitted From: Home Planned Operative Procedure/s: D and C. Hysteroscopy. Myosure. Consent for Planned Operative Procedure(s) Verified: Yes Verified Documents: Surgical Consent and History and Physical NPO Status Verified Time NPO: 00:00 Additional verifications Patient : No Anesthesia Reactions: No Hx Blood Transfusions: No Blood Transfusion Reaction: No Cephalosporin Allergy: No Previous Colonoscopy: Yes Airway Assessment Mallampati Score:: Class II C-Spine Mobility Assessed: Yes TMJ Mobility Assessed: Yes Dentition: Good Dentition Neurological Assessment Level of Consciousness: Awake, Alert, Appropriate and Follows Commands Hx Seizures: No Numbness or tingling in extremities: No Anesthesia Plan Anesthesia Risk discussed: Yes ASA Class: II Anesthesia Type: General
--- NOTE | 2024-12-14 08:02 | P.PNANES_ITS ---
[facility] Anesthesia Record Part I Anesthesia Record I Intake, IV Amount: 600 Hydration: Adequate Estimated blood loss (mL): 5 Urine output (mL): 0 Blood Products used (#): none Blood Pressure: 144/87 SaO2: 100 Pulse Rate: 89 Airway Patency: Patent Respiratory Rate: 14 Temperature: 97.1 F Patient is:: Drowsy and Stable Stable to PACU at:: 07:54
--- NOTE | 2024-12-14 08:05 | EXP.OP.NOTE ---
Date of procedure: 12/14/24 Pre-op Diagnosis:: 1. Abnormal uterine bleeding Post-op Diagnosis:: 1. Abnormal uterine bleeding Procedure performed:: 1. Hysteroscopy, dilation and curettage with Myosure Surgeon:: Shanique Scott DO Ship Cleaner(s):: N/a INSOLE TAPER:: Julius Patrick Anesthesia: GETA Estimated blood loss (mL): 5 Clinical Note:: Ms Maria Dolores Swann presents to [facility] for schedule procedure. She complains of irregular periods on Glendy. She states OCP worked well for her until about August 2024. Periods started to become irregular those two months. September her period lasted 3.5 weeks and was extremely heavy for 2 weeks. She is following with behavioral health. She admits to feeling very fatigued. She had a D&C with Dr. Stapleton in 01/13/23 for DUB and it helped reset her cycles. Pelvic ultrasound 10/24/24 demonstrated 1. Retroverted and axial uterus normal in shape and size. The endometrium is thin. Within the endometrial canal there is a small amount of fluid. There is a round hyperechoic area within the endometrium that may represent a small polyp. 2. Both ovaries are seen and appear normal. The right ovary appears somewhat polycystic. There is an ovoid shaped follicle in the left ovary measuring 1.6 cm. 3. No fluid in the cul-de-sac. TSH 1.56 on 10/17/24 Operative findings:: 1. On bimanual exam, uterus is normal size and shape, retroverted. No adnexal masses palpated 2. On hysteroscopic exam, bilateral tubal ostia easily visualized. Scant endometrial tissue present. No masses, polyps or lesions seen Operative note:: Risks, benefits and alternatives were discussed with the patient. Risks include but are not limited to bleeding, infection, uterine perforation and VTE. Patient voiced understanding and agreed to proceed. She was wheeled back to the operating room and placed under general anesthesia without difficulty. She was placed in dorsal lithotomy position and prepped and draped in the normal sterile fashion. Straight catheter was used to drain the bladder. A bimanual exam was performed. A weighted Auvard was placed in the vaginal vault. Single tooth tenaculum was placed on anterior lip of the cervix. Uterus sounded to 8. Sequential Yogi dilators were used to dilate the cervical os. Hysteroscope was inserted through the cervix without difficulty. Endometrial cavity was evaluated. See findings above. Pictures were taken. Myosure was inserted through the hysteroscope. Myosure curettage was performed per protocol in a 360 degree fashion under direct visualization. A scant amount of tissue was obtained. Pictures were taken. Hysteroscope with Myosure was removed. Medium size sharp curette was then inserted through the cervix and into the uterine cavity. Sharp curettage was performed in a 360 degree fashion. Endometrial curettings will be sent to pathology for review. Instruments were removed from the vagina. Tenaculum site was hemostatic. Patient was awaken from anesthesia without difficulty. She was transported to recovery room in stable condition. Patient will be discharged home when awake and ambulating. She was given postop instructions as well as instructions to follow-up in the office in 2 weeks. Condition: stable Disposition: same day Specimens:: 1. Endometrial curettings Complications:: None
[2024-12-14] MEDS: MORPHINE 2MG/ML SYRINGE 1 MG IV (08:06)
[2024-12-14] MEDS: HYDROMORPHONE 2MG/ML SYRINGE 0.5 MG IV (08:14)
--- NOTE | 2024-12-14 12:39 | P.PNANES_ITS ---
[facility] Anesthesia Record Part II Anesthesia Record Part II Discharge Time: 08:24 Destination: Surgical Day Care (OP Surgery) PACU nurse assessment reviewed?: Yes Patient Condition:: Good Anesthesia Complications:: None Swallowing reflex intact?: Yes Airway Patency: Patent Cyanosis?: No Blood Pressure: 144/81 SaO2: 99 Respiratory Rate: 18 Pulse Rate: 70 Temperature: 97.7 F Mental Status: Alert & Oriented Pain level:: 4 Nausea and/or vomitting:: None Intake, IV Amount: 0 Hydration: Adequate
== END 2024-12-14 09:02 | disposition home or self-care (01) ==
PROVIDERS: PCP Nurse Practitioner; Visit Provider Obstetrics & Gynecology
PROC: 0UDB8ZZ Extraction of Endometrium, Via Natural or Artificial Opening Endoscopic (ICD-10-PCS; CPT 58558; principal; 2024-12-14 07:30)
DX: N93.9 Abnormal uterine and vaginal bleeding, unspecified (principal)
CPT/HCPCS: 58558; J1100; J1171; J1885; J2250; J2270; J2405; J3010; J7120

== ENCOUNTER 2024-12-30 15:26 | Outpatient (CLI) | payer BC, SELFPAY ==
--- NOTE | 2024-12-30 15:27 | US_ITS ---
FINAL REPORT TECHNIQUE: Ultrasound images of the kidneys were obtained. CLINICAL HISTORY: .flank pain COMPARISON: None FINDINGS: RENAL ULTRASOUND The right kidney measures 10.8 cm in length. It is normal echogenicity. There is no hydronephrosis. The left kidney measures 10.1 cm in length. It is normal echogenicity. There is no hydronephrosis. IMPRESSION: Morphologically normal kidneys bilaterally. Reviewed, Interpreted and Dictated by Jeimy Mendoza MD Transcribed by Maricarmen Rodgers Authenticated and [facility]
== END 2024-12-30 23:59 | disposition home or self-care (01) ==
LOC: RAD 15:27
PROVIDERS: PCP Nurse Practitioner; Visit Provider Obstetrics & Gynecology
DX: R10.9 Unspecified abdominal pain (principal); R39.15 Urgency of urination
CPT/HCPCS: 76770

== ENCOUNTER → 2025-01-26 06:44 | Outpatient (CLI) | payer BC, SELFPAY | LOC: SL 06:45 | PROVIDERS: PCP Nurse Practitioner; Visit Provider Nurse Practitioner | DX: R06.83 Snoring (principal) | CPT/HCPCS: G0399 ==

== ENCOUNTER 2025-06-12 09:48 | Outpatient (CLI) | payer BC, SELFPAY ==
--- OUTSIDE RECORDS SUMMARY | 2025-05-15 11:15 | XMS_ITS | Encounter Summary ---
Author Organization [place] [address] Care Team Providers Care Financial Aid Director Name Role Phone Valerie Wesley MD Primary Care Provider Shanique Acosta ROPE SILICA MACHINE OPERATOR Unavailable Reason for Visit * Reason Comments Migraine Hypertension Discuss elevated BP Encounter Details Date Type Department Care Team (Late st Contact Info) Description 05/15/2025 11:15 AM EDT Office Visit [facility] [address] [facility] [place] [address] Shanique Acosta, ROPE SILICA MACHINE OPERATOR [address] [place] [address] Essential hypertension (Primary Dx); Acute intractable headache, unspecified headache type; History of asthma; Nausea Social History Tobacco Use Types Packs/Day Years Used Date Smoking Tobacco: Never Passive Smoke Exposure: Past Smokeless Tobacco: Never Tobacco Cessation:Counseling Given: Not Answered Alcohol Use Standard Drinks/Week Comments No 0 (1 standard drink = 0.6 oz pur e alcohol) PHQ-2 Answer Date Recorded PHQ-2 Total Score 0 01/31/2025 Sexually Active Control Partners Comments Yes Other-see comments Male Pill Comments No Sex and Gender Information Value Date Recorded Sex Assigned at Not on file Legal Sex Female 2:09 AM EDT Gender Identity Not on file Sexual Orientation Not on file documented as of this encounter Last Filed Vital Signs Vital Sign Reading Time Taken Comments Blood Pressure 146/100 05/15/2025 11:10 AM EDT Pulse 106 05/15/2025 11:10 AM EDT Temperature 37.1 C (98.8 F) 05/15/2025 11:10 AM EDT Respiratory Rate - - Oxygen Saturation 99% 05/15/2025 11:10 AM EDT Inhaled Oxygen Concentration - - Weight 71.4 kg (157 lb 6.4 oz) 05/15/2025 11:10 AM EDT Height 162.6 cm (5' 4 ) 05/15/2025 11:10 AM EDT Body Mass Index 27.02 05/15/2025 11:10 AM EDT documented in this encounter Functional Status * Is the person deaf or does he/she have serious difficulty hearing? Answer Date of Assessment Author No 01/31/2025 10:52 AM lFor King RMA * Is the person blind or does he/she have serious difficulty seeing even when wearing glasses? Answer Date of Assessment Author No 01/31/2025 10:52 AM Flor King RMA * Does this person have serious difficulty walking or climbing stairs? Answer Date of Assessment Author No 01/31/2025 10:52 AM Flor King RMA * Does this person have difficulty dressing or bathing? Answer Date of Assessment Author No 01/31/2025 10:52 AM Flor King RMA * Because of a physical, mental or emotional condition, does this person have difficulty doing errands alone such as visiting a doctor's office or shopping? Answer Date of Assessment Author No 01/31/2025 10:52 AM Flor King RMA documented as of this encounter Mental Status * Because of a physical, mental or emotional condition, does this person have serious difficulty concentrating, remembering or making decisions? Answer Entry Date Author No 01/31/2025 10:52 AM Flor King RMA documented in this encounter Ordered Prescriptions Prescription Sig Dispense Quantity Refills Last Filled Start Date End Date albuterol (PROVENTIL HFA;VENTOLIN HFA) 90 mcg/actuation Inhl HFA Aerosol InhalerIndications :History of asthma Inhale 2 Puffs into the lungs every 4 hours as needed for Wheezing. 1 Each 5 05/15/2025 ondansetron (ZOFRAN-ODT) 4 mg Oral Tablet, Rapid DissolveIndication s:Nausea Dissolve 1 Tablet by mouth every 6 hours as needed. 30 Tablet 05/15/2025 valsartan (DIOVAN) 40 mg Oral TabletIndications: Essential hypertension Take 1 Tablet by mouth daily. 90 Tablet 1 05/15/2025 documented in this encounter Progress Notes * Shanique Acosta, ROPE SILICA MACHINE OPERATOR - 05/15/2025 11:15 AM EDT Assessment & Plan Essential hypertension Orders: ??? valsartan (DIOVAN) 40 mg Oral Tablet; Take 1 Tablet by mouth daily. Acute intractable headache, unspecified headache type Orders: ??? methylPREDNISolone acetate (DEPO-Medrol) injection 80 mg Has been off blood pressure medicine, had improved after weight loss, however, after few elevated readings when sees specialists, and elevation today, will restart some blood pressure medicine. Will also provide steroid injection today so if there is an allergy component, will also help. To follow up if not improving over next few days. History of asthma Orders: ??? albuterol (PROVENTIL HFA;VENTOLIN HFA) 90 mcg/actuation Inhl HFA Aerosol Inhaler; Inhale 2 Puffs into the lungs every 4 hours as needed for Wheezing. Nausea Orders: ??? ondansetron (ZOFRAN-ODT) 4 mg Oral Tablet, Rapid Dissolve; Dissolve 1 Tablet by mouth every 6 hours as needed. Progress Note: Vitals: 05/15/25 1110 BP: (!) 146/100 BP Location: Right arm Patient Position: Sitting Pulse: 106 Temp: 98.8 ??F (37.1 ??C) TempSrc: Forehead SpO2: 99% Weight: 157 lb 6.4 oz (71.4 kg) Height: 5' 4 (1.626 m) Body mass index is 27.02 kg/m??. SUBJECTIVE: Chief Complaint Patient presents with ??? Migraine ??? Hypertension Discuss elevated BP HPI: Past couple weeks has had headache to left side of head and neck. Feels like pressure to head. Has taken excedrin, drinking plenty, just not improving. Blood pressure up. No vision changes. Some nausea, no vomiting. Has had occasional cough. Pressure behind eyes. Review of Systems Constitutional: Negative. HENT: Negative. Neurological: Positive for headaches. OBJECTIVE: Physical Exam Vitals and nursing note reviewed. Constitutional: Appearance: Normal appearance. HENT: Mouth/Throat: Mouth: Mucous membranes are moist. Cardiovascular: Rate and Rhythm: Normal rate. Pulmonary: Effort: Pulmonary effort is normal. Skin: General: Skin is warm and dry. Neurological: Mental Status: She is alert. Psychiatric: Mood and Affect: Mood normal. documented in this encounter Plan of Treatment Upcoming Encounters Date Type Department Care Team (Late st Contact Info) Description 08/08/2025 2:00 PM EDT Office Visit SEP Neurology [facility] [address] [place] [address] Aria Juan MD [address] [place] [address] documented as of this encounter Goals Goal Patient Goal Type Associated Problems Recent Progress Patient-Stated? Author Blood Pressure < 140/90 Blood Pressure 148/78(2024 8:37 AM EDT) No Shanique Acosta APRN Maintain a healthy diet, exercise regularly and maintain an ideal body weight General No [facility] documented as of this encounter Visit Diagnoses Diagnosis Essential hypertension- Primary Unspecified essential hypertension Acute intractable headache, unspecified headache type History of asthma Personal history of other diseases of respiratory system Nausea Nausea alone documented in this encounter Administered Medications Inactive Administered Medications - up to 1 most recent administrations Medication Order MAR Action Action Date Dose Rate Site methylPREDNISolone acetate (DEPO-Medrol) injection 80 mg 80 mg, Intramuscular, ONCE, 1 dose, On Thu05/15/25 at 1130, Dx: 1. Acute intractable headache, unspecified headache typeIndications:Acute intractable headache, unspecified headache type Given 05/15/2025 11:27 AM EDT 80 mg Right Upper Outer Quadrant documented in this encounter Discontinued Medications Medication Sig Discontinue Reason Start Date End Da te albuterol (PROVENTIL HFA;VENTOLIN HFA) 90 mcg/actuation Inhl HFA Aerosol InhalerIndications:Asthma tic bronchitis, mild intermittent, with acute exacerbation Inhale 2 Puffs into the lungs every 4 hours as needed for Wheezing. Reorder 06/02/2022 05/15/2025 documented as of this encounter Orders Medications Ordered That Keenan ht Not Have Been Administered Count Last Ordered Date First Ordered Date methylPREDNISolone acetate ( DEPO-Medrol) injection 80 mg 1 05/15/2025 documented in this encounter Care Teams Financial Aid Director Relationship Specialty Start Date End Date Valerie Wesley MD [address] [place] [address] PCP - General Family Medicine 02/23/12 Shanique Acosta APRN [address] [place] [address] Nurse Practitioner 12/21/15 documented as of this encounter
--- OUTSIDE RECORDS SUMMARY | 2025-05-25 08:30 | XMS_ITS | Encounter Summary ---
Author Organization [place] [address] Care Team Providers Care Station Jailer Name Role Phone Valerie Wesley MD Primary Care Provider [phone]- [phone] Shanique Acosta RENOVATION PLANT SUPERVISOR Unavailable [phone] Reason for Referral * Consultation (Emergency) - Authorization Not Needed Specialty Diagnoses / Procedures Referred By Contac t Referred To Contact Neurology Diagnoses Acute intractable headache, unspecified headache type Procedures [place] OFFICE/OUTPATIENT NEW MODERATE MDM 45 MINUTES Beti Jean Baptiste MD [address] [place] [address] Phone: tel: fax: [facility] [place] [address] [place] [phone] Phone: tel: fax: Referral ID Status Reason Start Date Expiration Date Visits Requested Visits Authorized [id number] Authorization Not Needed 05/25/2025 05/25/2026 99 99 * MRI/CAT Scan (Emergency) - Pending Review Specialty Diagnoses / Procedures Referred By Contac t Referred To Contact Radiology Diagnoses Acute intractable headache, unspecified headache type Procedures MRI BRAIN W WO CONTRAST Beti Jean Baptiste MD [address] [place] [address] Phone: tel: fax: Referral ID Status Reason Start Date Expiration Date V isits Requested Visits Authorized [id number] Pending Review 05/25/2025 05/25/2026 1 1 Reason for Visit * Reason Comments Headache still not going away after shot and taking bp med Encounter Details Date Type Department Care Team (Latest Contact Info) Description 05/25/2025 8:30 AM EDT Office Visit SEP [facility] [address] [facility] [place] [address] Beti Jean Baptiste MD [address] [place] [address] Intractable headache, unspecified chronicity pattern, [...] the patient for the first time. Sent Liniot message to Shanique who is out this [...] this point. Medications: - Bupropion 150 mg (90-kslx-etjyvp once or twice daily?) - Adderall 10 [...] The provider educated the patient (or legal exhibit display representative) on the use of the ambient listening artificial intelligence tool, [employer]. They were informed that this AI tool [...] of such information, the patient (or legal exhibit display representative), and each individual in attendance with the patient, verbally consented to the use of the AI tool. documented in this encounter Plan of Treatment Upcoming Encounters Date Type Department Care Team (Late st Contact Info) Description 08/08/2025 2:00 PM EDT Office Visit SEP Neurology [facility] [address] [place] [address] Aria Juan MD [address] [place] [address] Scheduled Orders Name Type Priority [...] ideal body weight General No Paula Hopkins, [facility] documented as of this encounter Visit Diagnoses [...] 05/22/2025 added in this encounter Care Teams Station Jailer Relationship Specialty Start Date End Date Valerie Wesley MD [address] [place] [address] PCP - General Family Medicine 02/23/12 Shanique Acosta APRN [address] [place] [address] Nurse Practitioner 12/21/15 documented as of this encounter
--- OUTSIDE RECORDS SUMMARY | 2025-06-12 09:56 | XMS_ITS | Encounter Summary ---
Author Organization [place] [address] Care Team Providers Care Lead Pressman Roto Gravure Printing Name Role Phone Valerie Wesley MD Primary Care Provider Shanique Acosta SUPERVISOR SMALL APPLIANCE ASSEMBLY Unavailable [phone] Reason for Visit * Reason Onset Date Comments Prior Authorization 05/30/2025 PA submitted for Nurtec 75mg tablet Approved Encounter Details Date Type Department Care Team (Late st Contact Info) Description 05/30/2025 Telephone SEP [facility] [address] [facility] [place] [address] Shanique Acosta, SUPERVISOR SMALL APPLIANCE ASSEMBLY [address] [place] [address] Prior Authorization (PA submitted for Nurtec 75mg tablet Approved) Social History Tobacco Use Types Packs/Day Years [...] on file documented as of this encounter Functional Status * Is the person deaf or does he/she have serious difficulty hearing? Answer Date of Assessment Author No 01/31/2025 10:52 AM EDT Flor Wang RMA * Is the person blind or does he/she have serious difficulty seeing even when wearing glasses? Answer Date of Assessment Author No 01/31/2025 10:52 AM EDT Flor Wang RMA * Does this person have serious difficulty walking or climbing stairs? Answer Date of Assessment Author No 01/31/2025 10:52 AM EDT Flor Wang RMA * Does this person have difficulty dressing or bathing? Answer Date of Assessment Author No 01/31/2025 10:52 AM EDT Flor Wang RMA * Because of a physical, mental or emotional condition, does this person have difficulty doing errands alone such as visiting a doctor's office or shopping? Answer Date of Assessment Author No 01/31/2025 10:52 AM EDT Flor Wang RMA documented as of this encounter Mental Status * Because of a physical, mental or emotional condition, does this person have serious difficulty concentrating, remembering or making decisions? Answer Entry Date Author No 01/31/2025 10:52 AM EDT Flor Wang RMA documented in this encounter Miscellaneous Notes * Telephone Encounter - Rosita Montaño MA - 05/31/2025 9:00 AM EDT PA for Nurtec 75mg tablet APPROVED. CaseId:[id number];Status:Approved;Review Type:Prior Auth;Coverage Start Date:04/30/2025;Coverage EndDate:05/30/2026; * Telephone Encounter - Rosita Montaño MA - 05/30/2025 10:45 AM EDT PA submitted for Nurtec 75mg tablet documented in this encounter Plan of Treatment Upcoming Encounters Date Type Department Care Team (Late st Contact Info) Description 08/08/2025 2:00 PM EDT Office Visit SEP Neurology [facility] [address] [place] [address] Aria Juan MD [address] [place] [address] documented as of this encounter Goals Goal Patient Goal Type Associated Problems Recent Progress Patient-Stated? Author Blood Pressure < 140/90 Blood Pressure 148/78(2024 8:37 AM EDT) No Shanique Acosta APRN Maintain a healthy diet, exercise regularly and maintain an ideal body weight General No Paula Hopkins RMA documented as of this encounter Visit Diagnoses Not on filedocumented in this encounter Care Teams Lead Pressman Roto [employer] Printing Relationship Specialty Start Date End Date Valerie Wesley MD [address] [place] [address] PCP - General Family Medicine 02/23/12 Shanique Acosta APRN [address] [place] [address] Nurse Practitioner 12/21/15 documented as of this encounter
--- OUTSIDE RECORDS SUMMARY | 2025-06-12 09:56 | XMS_ITS | Clinical Summary ---
Author Organization [facility] Address [address] [place] [address] Phone [email or web address] Care Team Providers Care Landcare Facilitator Name Role Phone Unavailable Primary Care Provider Unavailabl e Allergies Active Allergy Reactions Criticality Noted Date Comments Aripiprazole Anaphylaxis High 07/21/2023 Tongue and throat swelling Medications levothyroxine (SYNTHROID) 25 MCG tablet Take 25 mcg by mouth once daily as needed. Active buPROPion SR 150 MG 12 hr tablet Take 150 mg by mouth in the morning and 150 mg in the evening. Do not crush, chew, or split. . Active benazepril (LOTENSIN) 40 MG tablet Take 40 mg by mouth once daily as needed. 4 Active Vraylar 3 MG capsule Take 1 capsule by mouth 1 (one) time each day. 4 Active DIONTE 3-0.02 MG per tablet Take 1 tablet by mouth 1 (one) time each day. Active hydrOXYzine (VISTARIL) 25 MG capsule TAKE 1 CAPSULE BY MOUTH THREE TIMES DAILY NEEDED FOR INCREASED ANXIETY Active Zepbound 2.5 MG/0.5ML solution auto-injector INJECT 1 SYRINGE SUBCUTANEOUSLY ONCE A WEEK Active Active Problems No known active problems Social History Tobacco Use Types Packs/Day Years Used Date Smoking Tobacco: Never Smokeless Tobacco: Never Intimate Partner Violence Answer Date R ecorded Insults You Not on file 02/21/2021 Threatens You Not on file 02/21/2021 Screams at You Not on file 02/21/2021 Physically Hurt Not on file 02/21/2021 Intimate Partner Violence Score Not on file 02/21/2021 Depression Answer Date Recorded PHQ Total Score 0 04/05/2024 Stress Answer Date Recorded Stress in your Life Not on file 09/11/2024 Dealing with Stress 3 09/11/2024 Comments Unknown Sex and Gender Information Value Date Recorded Sex Assigned at Not on file Legal Sex Female 12:06 AM CDT Gender Identity Not on file Sexual Orientation Not on file Last Filed Vital Signs Vital Sign Reading Time Taken Comments Blood Pressure 104/66 04/05/2024 6:47 AM EDT Pulse 74 04/05/2024 6:47 AM EDT Temperature 37.1 C (98.7 F) 03/13/2021 7:42 PM EDT Respiratory Rate 14 04/05/2024 7:19 AM EDT Oxygen Saturation 100% 04/05/2024 7:19 AM EDT Inhaled Oxygen Concentration - - Weight 88.5 kg (195 lb) 07/20/2020 10:55 AM EDT Height 167.6 cm (5' 6 ) 07/20/2020 10:55 AM EDT Body Mass Index 31.47 07/20/2020 10:55 AM EDT Plan of Treatment Health Maintenance Due Date Last Done Comments Cervical Cancer Screening Combo 1995 Dental Cleaning/Exam 1995 HIV Screening 1995 HPV / Cotest 1995 Hepatitis C Screening 1995 Pap Testing 1995 HPV Immunization (1 - 2-dose series) 2006 Hep B Infection Screening - Triple Screen 2013 Pneumococcal: Ped (0 to 5 Yrs) and At-Risk Member (6 to 64 Yrs) (1 of 2 - PCV) 2014 Annual Preventive Exam 07/20/2021 07/20/2020 Covid-19 Immunization ( season) 2024 11/07/2021, 10/14/2021 Influenza Immunization (#1) 07/10/202507/10, 07/18/2019, 07/11/2017 Tetanus Diphtheria and Pertussis Immunization (8 - Td or Tdap) 05/20/2027 05/20/2017, 06/22/2006, 04/30/1999, Additional history exists HIB Immunization Completed 07/19/1996, 09/1995, 1995, Additional history exists Hepatitis B Immunization Completed 998, 04/19/1996, 1995, Additional history exists Varicella Immunization Aged Out 10/01/1998 No lo nger eligible based on patient's age to complete this topic Polio Immunization Completed 04/30/1999, 1 12/20/1994, 1995, Additional history exists Hepatitis A Immunization Aged Out 05/03/2019, 04/2018 No longer eligible based on patient's age to complete this topic Insurance OPT OUT NO COPAY NB
--- OUTSIDE RECORDS SUMMARY | 2025-06-12 09:56 | XMS_ITS | Encounter Summary ---
Author Organization [place] [address] Care Team Providers Care Air Conditioning Sheet Metal Installer Name Role Phone Valerie Wesley MD Primary Care Provider [phone] Shanique Acosta FLARE WORKER Unavailable [phone] Encounter Details Date Type Department Care Team (Late st Contact Info) Description 11/24/2022 Hospital Encounter [facility] [address] [facility] [address] [place], [place] [id number] Social History Tobacco Use Types Packs/Day Years [...] as of this encounter Functional Status * Cognitive and Functional Status Question Answer Date of Assessment Author Is the person deaf or does he/she have serious difficulty hearing? No 01/31/2025 10:52 AM EDT Flor Wang ae, RMA Is the person blind or does he/she have serious difficulty seeing even when wearing glasses? No 01/31/2025 10:52 AM EDT Flor Wang ae, RMA Does this person have seriou s difficulty walking or climbing stairs? No 01/31/2025 10:52 AM EDFlor Levy ae RMA Does this person have difficulty dressing or bathing? No 01/31/2025 10:52 AM Flor King ae RMA * Is the person deaf or does he/she have serious difficulty hearing? Answer Date of Assessment Author No 11/24/2022 8:22 AM Raiza Vallejo RMA * Is the person blind or does he/she have serious difficulty seeing even when wearing glasses? Answer Date of Assessment Author No 11/24/2022 8:22 AM Raiza Vallejo RMA * Does this person have serious difficulty walking or climbing stairs? Answer Date of Assessment Author No 11/24/2022 8:22 AM Raiza Vallejo RMA * Does this person have difficulty dressing or bathing? Answer Date of Assessment Author No 11/24/2022 8:22 AM Raiza Vallejo RMA * Because of a physical, mental or emotional condition, does this person have difficulty doing errands alone such as visiting a doctor's office or shopping? Answer Date of Assessment Author No 11/24/2022 8:22 AM Raiza Vallejo RMA * PHQ-9 Total Score Answer Date of Assessment Author 0 01/31/2025 10:52 AM Flor King RMA * Question Answer Date of Assessment Author Little interest or pleasure in doing things 0 01/31/2025 10:52 AM Flor King ae, RMA Feeling down, depressed, or hopeless 0 01/31/2025 10:52 AM Flor King ae RMA PHQ-2 Total Score 0 01/31/2025 10:52 AM Flor King RMA * Question Answer Date of Assessment Author Feeling Nervous, Anxious, or on Edge 0 01/31/2025 10:53 AM Flor King ae RMA Not Being Able to Stop or Control Worrying 0 01/31/2025 10:53 AM Flor King ae RMA Worrying too Much About Different Things 0 01/31/2025 10:53 AM EDFlor Levy ae RMA Trouble Relaxing 0 01/31/2025 10:53 AM EDT Kathleen Flor Che, SERA Being so Restless That it is Hard to Sit Still 0 01/31/2025 10:53 AM EDT Kathleen Flor Blanchard SERA hart Becoming Easily Annoyed or Irritable 0 01/31/2025 10:53 AM EDT Kathleen Flor Blanchard SERA hart Feeling Afraid as if Somethi ng Awful Might Happen 0 01/31/2025 10:53 AM EDT Sumeet Wangalfonso Blanchard SERA hart ANABELLE-7 Total Score 0 01/31/2025 10:53 AM EDT Kathleen Flor SERA Bolton documented as of this encounter Mental Status * Cognitive and Functional Status Question Answer Entry Date Author Because of a physical, menta l or emotional condition, does this person have difficulty doing errands alone such as visiting a doctor's office or shopping? No 01/31/2025 10:52 AM EDT Kathleen Flor SERA Blanchard ae Because of a physical, menta l or emotional condition, does this person have serious difficulty concentrating, remembering or making decisions? No 01/31/2025 10:52 AM EDT Flor Wang SERA hart * Because of a physical, mental or emotional condition, does this person have serious difficulty concentrating, remembering or making decisions? Answer Entry Date Author No 11/24/2022 8:22 AM Raiza VallejoSERA documented in this encounter Plan of Treatment Upcoming Encounters Date Type Department Care Team (Late st Contact Info) Description 08/08/2025 2:00 PM EDT Office Visit [facility] Neurology [facility] [address] [place] [address] Aria Juan MD [address] [place] [address] documented as of this encounter Goals Goal Patient Goal Type Associated Problems Recent Progress Patient-Stated? Author Blood Pressure < 140/90 Blood Pressure 148/78(2024 8:37 AM EDT) No Acosta, Shanique S, FLARE WORKER Maintain a healthy diet, exercise regularly and maintain an ideal body weight General No Paula Hopkins, A documented as of this encounter Visit Diagnoses Not on filedocumented in this encounter Care Teams Air Conditioning Sheet Metal Installer Relationship Specialty Start Date End Date Valerie Wesley MD [address] [place] [address] PCP - General Family Medicine 02/23/12 Shanique Acosta APRN [address] [place] [address] Nurse Practitioner 12/21/15 documented as of this encounter
--- OUTSIDE RECORDS SUMMARY | 2025-06-12 09:56 | XMS_ITS | Clinical Summary ---
Author Organization [facility] Address [address] [place] [address] Phone Care Team Providers Care Aircraft Riveter Name Role Phone Valerie Wesley MD Primary Care Provider [phone] Shanique Acosta HARBOR MASTER Unavailable [phone] Allergies Active Allergy Reactions Criticality Noted Date Comments Aripiprazole Anaphylaxis High 07/21/2023 Tongue and throat swelling Medications buPROPion (WELLBUTRIN SR) 150 mg Oral tablet sustained-releas e 12 hr Take 150 mg by mouth. Active VRAYLAR 1.5 mg Oral Capsule Take 1.5 mg by mouth daily. 3 Active hydrOXYzine (VISTARIL) 25 mg Oral Capsule TAKE 1 CAPSULE BY MOUTH THREE TIMES DAILY NEEDED FOR INCREASED ANXIETY Active lamoTRIgine (LAMICTAL) 100 mg Oral Tablet Take 100 mg by mouth daily. 5 Active dextroamphetamin e-amphetamine (ADDERALL) 10 mg Oral Tablet Take 10 mg by mouth daily. Active LEVOthyroxine (SYNTHROID) 25 mcg Oral TabletIndication s:Hypothyroidism (acquired) Take 1 Tablet by mouth daily. 90 Tablet 1 5 Active tirzepatide, weight loss, (ZEPBOUND) 5 mg/0.5 mL SubQ Pen InjectorIndicati ons:Obesity, Class I, BMI 30-34.9 Subcutaneous (Inject under the skin) 5 mg once a week. 6 mL 1 5 Active valACYclovir (VALTREX) 500 mg Oral TabletIndication s:Recurrent cold sores Tid for 5 days then 1 a day after 45 Tablet 1 5 Active valsartan (DIOVAN) 40 mg Oral TabletIndication s:Essential hypertension Take 1 Tablet by mouth daily. 90 Tablet 1 5 Active ondansetron (ZOFRAN-ODT) 4 mg Oral Tablet, Rapid DissolveIndicati ons:Nausea Dissolve 1 Tablet by mouth every 6 hours as needed. 30 Tablet 5 Active albuterol (PROVENTIL HFA;VENTOLIN HFA) 90 mcg/actuation Inhl HFA Aerosol InhalerIndicatio ns:History of asthma Inhale 2 Puffs into the lungs every 4 hours as needed for Wheezing. 1 Each 5 5 Active traZODone (DESYREL) 50 mg Oral Tablet TAKE 1/2 TO 1 1/2 TABLET BY MOUTH ONCE DAILY 5 Active acetaZOLAMIDE (DIAMOX) 250 mg Oral TabletIndication s:Intractable headache, unspecified chronicity pattern, unspecified headache type Take 1 Tablet by mouth 2 times daily. 60 Tablet 2 5 Active rimegepant 75 mg Oral Tablet, Rapid DissolveIndicati ons:Episodic migraine Dissolve 1 Tablet by mouth every other day. 16 Tablet 2 5 Active Hospital, Clinic, or Other Facility Administered Medication Ordered Dose Route Frequency Start Date End Date Status methylPREDNISolone acetate (DEPO-Medrol) injection 80 mgIndications:Acute intractable headache, unspecified headache type 80 mg IM ONCE 05/15/2025 05/15/2025 Ended Active Problems Problem Noted Date Diagnosed Date Obesity, Class I, BMI 30-34.9 04/19/2016 Assessment & Plan (01/31/2025 11:07 AM EDT): Orders: tirzepatide, weight loss, (ZEPBOUND) 5 mg/0.5 mL SubQ Pen Injector; Subcutaneous (Inject under the skin) 5 mg once a week. CBC WITH DIFF; Future COMPREHENSIVE METABOLIC PANEL; Future Assessment & Plan (10/24/2024 8:31 AM EST): Orders: tirzepatide, weight loss, (ZEPBOUND) 5 mg/0.5 mL SubQ Pen Injector; Subcutaneous (Inject under the skin) 5 mg once a week. Unexplained weight gain 04/19/2016 Recurrent cold sores 06/03/2014 Assessment & Plan (10/24/2024 8:31 AM EST): Orders: valACYclovir (VALTREX) 500 mg Oral Tablet; Tid for 5 days then 1 a day after Bulging lumbar disc L4-L5 and L5-S1 08/30/2011 Asthma 03/01/2010 Encounters Date Type Department Care Team Description 06/08/2025 Telephone SEP [facility] [address] [place] [address] Valerie Wesley MD Prior Authorization (MRI of Brain) 06/08/2025 Telephone [facility] [address] [place] [address] Shanique Acosta APRN Prior Authorization (PA submitted for Zepbound 5mg pen ) 06/05/2025 Telephone [facility] [address] [place] [address] Valerie Wesley MD Other (mri order to be sent to [facility]) 05/30/2025 Telephone [facility] [address] [place] [address] Shanique Acosta APRN Prior Authorization (PA submitted for Nurtec 75mg tablet Approved) 05/30/2025 Orders Only [facility] [address] [place] [address] Shanique Acosta APRN Episodic migraine (Primary Dx) 05/25/2025 8:30 AM EDT Office Visit [facility] [address] [place] [address] Beti Jean Baptiste MD Intractable headache, unspecified chronicity pattern, unspecified headache type (Primary Dx) 05/25/2025 Telephone [facility] [address] [facility] [place] [address] Valerie Wesley MD Prior Authorization (MRI ) 05/25/[address] [place] [address] Domonique Dominguez LPN Advice Only 05/23/2025 Travel 05/15/2025 11:15 AM EDT Office Visit [facility] [address] [facility] [place] [address] Shanique Acosta APRN Essential hypertension (Primary Dx); Acute intractable headache, unspecified headache type; History of asthma; Nausea 05/15/2025 Travel from Last 3 Months Immunizations Immunization Administration Dates Next Due DTP/HiB 07/19/1996 DTaP 04/30/1999, 6,1995,08/06,1995 HPV Quadrivalent 06/20/2009 Hepatitis A, Adult 05/03/2019,07/15/2018 Hepatitis B, Adult 05/15/2025,04/14/2025 Hepatitis B, Ped/Adol 10/01/1998, 996,1995,04/13 Hepatitis B, Unspecified Formulation 04/19/1996 HiB, Unspecified Formulation 07/19/1996, 1995,1995,06/09 IPV 04/30/1999, 5,1995,06/09 Influenza Patient Reported 08/24/2024,08/25/2023 ,07/18/2019 Influenza Vaccine Quadrivalent 07/27/2020,2016 MMR 05/15/2025, 5,04/30/1999,07/19 Meningococcal MCV4, Unspecif ied Formulation 06/20/2009 Moderna SARS-CoV-2 Vaccine 1 2+ Yrs (Light blue border) 11/07/2021,10/14/2021 PPD Test 06/08/2017, 7,05/18/2017,11/11 Tdap 04/14/2025,05/20/2017,06/22/2006 Varicella 05/15/2025,,06/20/2009,10/01 Surgical History Surgery Date Site/Laterality Comments APPENDECTOMY ~2007 WISDOM TOOTH EXTRACTION ~2009 LAPAROTOMY 07/04/2014 Dr Desai @ [facility] BREAST REDUCTION SURGERY 12/11/2015 Breast/Bilateral BILATERAL BREAST REDUCTION; Surgeon: Mahesh Portillo MD; Location: [facility]; Service: Plastics HYSTEROSCOPY 02/28/2016 N/A HYSTEROSCOPY DILATION AND CURETTAGE CERVICAL BIOPSY ; Surgeon: Chu Desai MD; Location: [facility]; Service: Gynecology UPPER GASTROINTESTINAL ENDOSCOPY COLONOSCOPY 02/18/2017 N/A Colonoscopy with biopsy; Surgeon: Osmin Mendez MD; Location: ED ENDOSCOPY; Service: Endoscopy Medical History Medical History Date Comments Asthma Anxiety Heartburn Post-operative nausea and vomiting Depression Hypertension Family History Medical History Relation Name Comments Anesth Problems Father Haja hard to alexander te Colon Polyps Father Haja Heart Disease Father Haja High Blood Pressure Father Haja High Blood Pressure Mother Cristela Swann Diabetes Paternal Grandmother Fide Heart Disease Paternal Grandmother Fide Cirrhosis Neg Hx Colon Cancer Neg Hx Crohn's Disease Neg Hx Esophageal Cancer Neg Hx Liver Disease Neg Hx Relation Name Status Comments Father Haja Alive Mother Cristela Swann Alive Paternal Grandmother Fide Social History Tobacco Use Types Packs/Day Years [...] on file Sexual Orientation Not on file Obstetrics History Last Filed Vital Signs Vital Sign Reading Time Taken Comments Blood Pressure 148/78 05/25/2025 8:37 AM EDT Pulse 119 05/25/2025 8:37 AM EDT Temperature 37.1 C (98.8 F) 05/25/2025 8:37 AM EDT Respiratory Rate 20 07/21/2023 1:44 PM EDT Oxygen Saturation 99% 05/25/2025 8:37 AM EDT Inhaled Oxygen Concentration - - Weight 71.7 kg (158 lb) 05/25/2025 8:37 AM EDT Height 162.6 cm (5' 4 ) 05/25/2025 8:37 AM EDT Body Mass Index 27.12 05/25/2025 8:37 AM EDT Plan of Treatment Upcoming Encounters Date Type Department Care Team (Late st Contact Info) Description 08/08/2025 2:00 PM EDT Office Visit SEP Neurology [facility] [address] [place] [address] Aria Juan MD [address] [place] [address] Health Maintenance Due Date Last Done Comments Pneumococcal Vaccine 0-49 (1 of 2 - PCV) 2014 COVID-19 Vaccine (3 - season) 2024 11/07/2021, 10/14/2021 HPV/Pap Cotest 2025 Influenza Vaccine (#1) 2025 , 08/25/2023, 07/27/2020, Additional history exists Annual Wellness Exam 10/24/2025 10/24/2024 Cervical Cancer Screening 09/04/2026 Pap Smear 09/04/2026 09/04/2023, 04/09/2016 DTaP/TDaP/Td (9 - Td or Tdap) 04/14/2035 04/14/2025, 05/20/2017, 06/22/2006, Additional history exists Hepatitis B Vaccine Completed 05/15/2025, 04/14/2025, 10/01/1998, Additional history exists Meningococcal B Vaccine Aged Out No l onger eligible based on patient's age to complete this topic Goals Goal Patient Goal Type Associated Problems Recent Progress Patient-Stated? Author Blood Pressure < 140/90 Blood Pressure 148/78(2024 8:37 AM EDT) No Shanique Acosta, GRANT Maintain a healthy diet, exercise regularly and maintain an ideal body weight General No Hopkins, Paula [place], A Insurance ANTH PPO ANTHEM PPO Care Teams Aircraft Riveter Relationship Specialty Start Date End Date Valerie Wesley MD [address] [place] [address] PCP - General Family Medicine 02/23/12 Shanique Acosta APRN [address] [place] [address] Nurse Practitioner 12/21/15
--- OUTSIDE RECORDS SUMMARY | 2025-06-12 09:56 | XMS_ITS | Encounter Summary ---
Author Organization [facility] [place] [address] Care Team Providers Care Polisher Eyeglass Frames Name Role Phone Valerie Wesley MD Primary Care Provider [phone] Shanique Acosta WARDROBE SUPERVISOR Unavailable [phone] Encounter Details Date Type Department Care Team (Latest Contact Info) Description 05/15/2025 Travel Social History Tobacco Use Types Packs/Day Years Used Date Smoking Tobacco: Never Passive Smoke Exposure: Past Smokeless Tobacco: Never Alcohol Use Standard Drinks/Week Comments No 0 [...] Flor Wang RMA documented in this encounter Plan of Treatment Upcoming Encounters Date Type Department Care Team (Late st Contact Info) Description 08/08/2025 2:00 PM EDT Office Visit SEP Neurology [facility] [address] [place] [address] Aria Juan MD [address] [place] [address] documented as of this encounter Goals Goal Patient Goal Type Associated Problems Recent Progress Patient-Stated? Author Blood Pressure < 140/90 Blood Pressure 148/78(2024 8:37 AM EDT) No Shanique Acosta APRN Maintain a healthy diet, exercise regularly and maintain an ideal body weight General No Paula Hopkins RMA documented as of this encounter Visit Diagnoses Not on filedocumented in this encounter Care Teams Polisher Eyeglass Frames Relationship Specialty Start Date End Date Valerie Wesley MD [address] [place] [address] PCP - General Family Medicine 02/23/12 Shanique Acosta APRN [address] [place] [address] Nurse Practitioner 12/21/15 documented as of this encounter
--- OUTSIDE RECORDS SUMMARY | 2025-06-12 09:56 | XMS_ITS | Encounter Summary ---
Author Organization [place] [address] Care Team Providers Care Test Conductor Name Role Phone Valerie Wesley MD Primary Care Provider [phone] Shanique Acosta TRACTION POWER ENGINEER Unavailable [phone] Reason for Visit * Reason Onset Date Comments Advice Only 05/25/2025 Encounter Details Date Type Department Care Team (Late st Contact Info) Description 05/25/2025 Telephone [facility] [address] [place] [address] Domonique Dominguez LPN Advice Only Social History Tobacco Use Types Packs/Day Years [...] No 01/31/2025 10:52 AM EDT Flor Wang BoltonSERA * Does this person have serious difficulty [...] Date Author No 01/31/2025 10:52 AM EDT Sumeet Wangalfonso Mcdermotte SERA documented in this encounter Miscellaneous Notes * Telephone Encounter - Domonique Dominguez LPN - 05/25/2025 11:52 AM EDT PC to [facility] to set up STAT Mri per order. They will not schedule MRI for pt r/t no prior authorization for service. PC to pt to notify- states I would still like to have the mri at [place], if I can. Referral number given to pt. Pt will call us back if further help is needed. documented in this encounter Plan of Treatment Upcoming Encounters Date Type Department Care Team (Late st Contact Info) Description 08/08/2025 2:00 PM EDT Office Visit SEP Neurology [facility] [address] [place] [address] Aria Juan MD [address] [place] [address] documented as of this encounter Goals Goal Patient Goal Type Associated Problems Recent Progress Patient-Stated? Author Blood Pressure < 140/90 Blood Pressure 148/78(2024 8:37 AM EDT) No Shanique Acosta APRN Maintain a healthy diet, exercise regularly and maintain an ideal body weight General No Paula Hopkins RMA documented as of this encounter Visit Diagnoses Not on filedocumented in this encounter Care Teams Test Conductor Relationship Specialty Start Date End Date Valerie Wesley MD [address] [place] [address] PCP - General Family Medicine 02/23/12 Shanique Acosta APRN [address] [place] [address] Nurse Practitioner 12/21/15 documented as of this encounter
--- OUTSIDE RECORDS SUMMARY | 2025-06-12 09:56 | XMS_ITS | Encounter Summary ---
Author Organization [facility] [address] Care Team Providers Care Director Talent Name Role Phone Valerie Wesley MD Primary Care Provider [phone] Shanique Acosta SPECIALIST PHYSICIAN Unavailable [phone] Encounter Details Date Type Department Care Team (Late st Contact Info) Description 05/30/2025 Orders Only SEP [facility] [address] [facility] [place] [address] Shanique Acosta, SPECIALIST PHYSICIAN [address] [place] [address] Episodic migraine (Primary Dx) Social History Tobacco Use Types [...] Flor Wang RMA documented in this encounter Ordered Prescriptions Prescription Sig Dispense Quantity Refills Last Filled Start Date End Date rimegepant 75 mg Oral Tablet, Rapid DissolveIndication s:Episodic migraine Dissolve 1 Tablet by mouth every other day. 16 Tablet 2 05/30/2025 documented in this encounter Plan of Treatment Upcoming Encounters Date Type Department Care Team (Late st Contact Info) Description 08/08/2025 2:00 PM EDT Office Visit SEP Neurology [facility] [address] [place] [address] Aria Juan MD [address] [place] [address] documented as of this encounter Goals Goal Patient Goal Type Associated Problems Recent Progress Patient-Stated? Author Blood Pressure < 140/90 Blood Pressure 148/78(2024 8:37 AM EDT) No Shanique Acosta APRN Maintain a healthy diet, exercise regularly and maintain an ideal body weight General No Paula Hopkins RMA documented as of this encounter Visit Diagnoses Diagnosis Episodic migraine- Primary documented in this encounter Care Teams Director Talent Relationship Specialty Start Date End Date Valerie Wesley MD [address] [place] [address] PCP - General Family Medicine 02/23/12 Shanique Acosta APRN [address] [place] [address] Nurse Practitioner 12/21/15 documented as of this encounter
--- OUTSIDE RECORDS SUMMARY | 2025-06-12 09:56 | XMS_ITS | Encounter Summary ---
Author Organization [facility] [place] [address] Care Team Providers Care Clock And Watch Hands Dipper Name Role Phone Valerie Wesley MD Primary Care Provider [phone] Shanique Acosta TIP STRETCHER Unavailable [phone] Encounter Details Date Type Department Care Team (Latest Contact Info) Description 05/23/2025 Travel Social History Tobacco Use Types Packs/Day [...] PM EDT Office Visit SEP Neurology [facility] [address] [place] [address] Aria Juan MD [address] [place] [address] documented as of this encounter Goals Goal Patient Goal Type Associated Problems Recent Progress Patient-Stated? Author Blood Pressure < 140/90 Blood Pressure 148/78(2024 8:37 AM EDT) No Shanique Acosta APRN Maintain a healthy diet, exercise regularly and maintain an ideal body weight General No Paula Hopkins RMA documented as of this encounter Visit Diagnoses Not on filedocumented in this encounter Care Teams Clock And Watch Hands Dipper Relationship Specialty Start Date End Date Valerie Wesley MD [address] [place] [address] PCP - General Family Medicine 02/23/12 Shanique Acosta APRN [address] [place] [address] Nurse Practitioner 12/21/15 documented as of this encounter
--- OUTSIDE RECORDS SUMMARY | 2025-06-12 09:56 | XMS_ITS | Encounter Summary ---
Author Organization [place] [address] Care Team Providers Care Shale Miner Blasting Name Role Phone Valerie Wesley MD Primary Care Provider [phone] Shanique Acosta RADIATION PROTECTION SPECIALIST Unavailable [phone] Reason for Visit * Reason Onset Date Comments Prior Authorization 05/25/2025 MRI Encounter Details Date Type Department Care Team (Late st Contact Info) Description 05/25/2025 Telephone [facility] [address] [facility] [place] [address] Valerie Wesley MD [address] [place] [address] Prior Authorization (MRI ) Social History Tobacco Use Types Packs/Day Years [...] 01/31/2025 10:52 AM EDT Flor Wang SERA * Is the person blind or does he/she have serious difficulty seeing even when wearing glasses? Answer Date of Assessment Author No 01/31/2025 10:52 AM EDFlor Levy SERA * Does this person have serious difficulty walking or climbing stairs? Answer Date of Assessment Author No 01/31/2025 10:52 AM EDT Flor Wang SERA * Does this person have difficulty dressing or bathing? Answer Date of Assessment Author No 01/31/2025 10:52 AM EDT Flor Wang SERA * Because of a physical, mental or emotional condition, does this person have difficulty doing errands alone such as visiting a doctor's office or shopping? Answer Date of Assessment Author No 01/31/2025 10:52 AM EDFlor Levy SERA documented as of this encounter Mental Status * Because of a physical, mental or emotional condition, does this person have serious difficulty concentrating, remembering or making decisions? Answer Entry Date Author No 01/31/2025 10:52 AM EDFlor Levy SERA documented in this encounter Miscellaneous Notes * Telephone Encounter - Lashae Villatoro - 05/25/2025 2:46 PM EDT Select the most appropriate reason for this telephone message: Prior Authorization Request Who is requesting the Prior Auth: Patient What is the Prior Auth for: Imaging Type: MRI Is the patient???s insurance plan that is on file up to date: Yes Informed patient that prior authorizations can take up to 10 business days for response: yes Return Method of Communication: Phone Call Additional Information: N/A documented in this encounter Plan of Treatment Upcoming Encounters Date Type Department Care Team (Late st Contact Info) Description 08/08/2025 2:00 PM EDT Office Visit SEP Neurology [facility] [address] [place] [address] Aria Juan MD [address] [address] documented as of this encounter Goals Goal Patient Goal Type Associated Problems Recent Progress Patient-Stated? Author Blood Pressure < 140/90 Blood Pressure 148/78(2024 8:37 AM EDT) No Shanique Acosta APRN Maintain a healthy diet, exercise regularly and maintain an ideal body weight General No Paula Hopkins RMA documented as of this encounter Visit Diagnoses Not on filedocumented in this encounter Care Teams Shale Miner Blasting Relationship Specialty Start Date End Date Valerie Wesley MD [address] [place] [address] PCP - General Family Medicine 02/23/12 Shanique Acosta APRN [address] [place] [address] Nurse Practitioner 12/21/15 documented as of this encounter
--- OUTSIDE RECORDS SUMMARY | 2025-06-12 09:56 | XMS_ITS | Encounter Summary ---
Author Organization [place] [address] Care Team Providers Care Process Pumper Name Role Phone Valerie Wesley MD Primary Care Provider [phone] Shanique Acosta RESIDENTIAL TREATMENT SPECIALIST Unavailable [phone] Encounter Details Date Type Department Care Team (Late Contact Info) Description 05/01/2016 Orders Only SEP Gastro [facility] [address] [place] [address] Osmin Mendez MD Social History Tobacco Use Types Packs/Day Years Used Date Smoking Tobacco: Never Smokeless Tobacco: Never Alcohol Use Standard Drinks/Week Comments No 0 (1 standard drink = 0.6 oz pur e alcohol) Sexually Active Control Partners Comments Never Comments No Sex and Gender Information Value Date Recorded Sex Assigned at Not on file Legal Sex Female 2:09 AM EDT Gender Identity Not on file Sexual Orientation Not on file documented as of this encounter Plan of Treatment Upcoming Encounters Date Type Department Care Team (Late Contact Info) Description 08/08/2025 2:00 PM EDT Office Visit SEP Neurology [facility] [address] [address] Aria Juan MD [address] [place] [address] documented as of this encounter Procedures Procedure Name Priority Date/Time Associated Diagnosis Comments [facility] EGD Routine 05/01/2016 9:45 AM EDT documented in this encounter Results * [facility] EGD (05/01/2016 9:45 AM EDT) 05/01/2016 9:45 AM EDT Impressions [facility] - 05/01/2016 9:45 AM EDT Normal mucosa in the whole esophagus. Altered mucosal texture and nodularity in the fundus. (Biopsy). Normal mucosa in the whole examined duodenum. (Biopsy). Plan: Await pathology results This section is an excerpt of the full report. us Osmin Mendez MD GI PROCEDURE ORDERABLES Final R esult [facility] [address] [place] [address] documented in this encounter Visit Diagnoses Not on filedocumented in this encounter Additional Health Concerns Infection Onset Date Last Indicated Resolved Time R/O COVID-19 03/15/2021 03/15/2021 03/16/2021 2:07 AM EDT documented as of this encounter Care Teams Process Pumper Relationship Specialty Start Date End Date Valerie Wesley MD [address] [place] [address] PCP - General Family Medicine 02/23/12 Shanique Acosta APRN [address] [place] [address] Nurse Practitioner 12/21/15 documented as of this encounter
--- OUTSIDE RECORDS SUMMARY | 2025-06-12 09:56 | XMS_ITS | Encounter Summary ---
Author Organization [place] [address] Care Team Providers Care Logistics/Shipper Name Role Phone Valerie Wesley MD Primary Care Provider [phone]- [phone] Shanique Acosta AUTO REFINISHER Unavailable [phone] Reason for Visit * Reason Onset Date Comments Other 06/05/2025 mri order to be sent to [facility] Encounter Details Date Type Department Care Team (Late st Contact Info) Description 06/05/2025 Telephone [facility] 300 [facility] [place] [address] Valerie Wesley MD [address] [place] [address] Other (mri order to be sent to [facility]) Social History Tobacco Use Types Packs/Day Years [...] Assessment Author No 01/31/2025 10:52 AM EDT Kathleen Flor Bolton SERA * Does this person have serious difficulty walking or climbing stairs? Answer Date of Assessment Author No 01/31/2025 10:52 AM EDT Flor Wang SERA * Does this person have difficulty dressing or bathing? Answer Date of Assessment Author No 01/31/2025 10:52 AM EDT Kathleen Flor Bolton SERA * Because of a physical, mental or emotional condition, does this person have difficulty doing errands alone such as visiting a doctor's office or shopping? Answer Date of Assessment Author No 01/31/2025 10:52 AM EDT Flor Wang SERA documented as of this encounter Mental Status * Because of a physical, mental or emotional condition, does this person have serious difficulty concentrating, remembering or making decisions? Answer Entry Date Author No 01/31/2025 10:52 AM EDT Flor Wang RMGt documented in this encounter Miscellaneous Notes * Telephone Encounter - Flor Johnson MA - 06/05/2025 11:27 AM EDT Order faxed, pt informed via * Telephone Encounter - Katherine Ramirez - 06/05/2025 11:01 AM EDT Select the most appropriate reason for this telephone message: Other Who is calling (name & relationship to patient if not the patient): patient What is needed OR why are they calling: already has an MRI order but is asking for it to be sent to [facility] When is this needed by: nicole Where does this information need to go: pcp Return Method of Communication: Phone Call Additional information:N/A documented in this encounter Plan of Treatment Upcoming Encounters Date Type Department Care Team (Late st Contact Info) Description 08/08/2025 2:00 PM EDT Office Visit [facility] Neurology [facility] [address] [place] [address] Aria Juan MD [address] [place] [place] [address] documented as of this encounter Goals Goal Patient Goal Type Associated Problems Recent Progress Patient-Stated? Author Blood Pressure < 140/90 Blood Pressure 148/78(2024 8:37 AM EDT) No Shanique Acosta APRN Maintain a healthy diet, exercise regularly and maintain an ideal body weight General No Paula Hopkins RMA documented as of this encounter Visit Diagnoses Not on filedocumented in this encounter Care Teams Logistics/Shipper Relationship Specialty Start Date End Date Valerie Wesley MD [address] [place] [address] PCP - General Family Medicine 02/23/12 Shanique Acosta APRN [address] [place] [address] Nurse Practitioner 12/21/15 documented as of this encounter
--- OUTSIDE RECORDS SUMMARY | 2025-06-12 09:56 | XMS_ITS | Encounter Summary ---
Author [place] [address] Care Team Providers Care Pattern Drum Maker Name Role Phone Valerie Wesley MD Primary Care Provider Shanique Acosta PARQUET FLOOR LAYER Unavailable [phone] Reason for Visit * Reason Onset Date Comments Prior Authorization 06/08/2025 PA submitted for Zepbound 5mg pen Encounter Details Date Type Department Care Team (Late st Contact Info) Description 06/08/2025 Telephone [facility] 300 [facility] [place] [address] Shanique Acosta, PARQUET FLOOR LAYER [address] [place] [address] Prior Authorization (PA submitted for Zepbound 5mg pen ) Social History Tobacco Use Types Packs/Day [...] Assessment Author No 01/31/2025 10:52 AM EDT Sumeet Wangalfonso BoltonSERA * Is the person blind or does he/she have serious difficulty seeing even when wearing glasses? Answer Date of Assessment Author No 01/31/2025 10:52 AM EDT Sumeet Wangalfonso Bolton SERA * Does this person have serious difficulty walking or climbing stairs? Answer Date of Assessment Author No 01/31/2025 10:52 AM EDT Kathleen Flor Bolton SERA * Does this person have difficulty dressing or bathing? Answer Date of Assessment Author No 01/31/2025 10:52 AM EDT Kathleen Flor Bolton SERA * Because of a physical, mental or emotional condition, does this person have difficulty doing errands alone such as visiting a doctor's office or shopping? Answer Date of Assessment Author No 01/31/2025 10:52 AM EDT Kathleen Flor Bolton SERA documented as of this encounter Mental Status * Because of a physical, mental or emotional condition, does this person have serious difficulty concentrating, remembering or making decisions? Answer Entry Date Author No 01/31/2025 10:52 AM EDT Kathleen Flor Bolton SERA documented in this encounter Miscellaneous Notes * Telephone Encounter - Rosita Montaño MA - 06/08/2025 9:39 AM EDT PA submitted for Zepbound 5mg pen documented in this encounter Plan of Treatment Upcoming Encounters Date Type Department Care Team (Late st Contact Info) Description 08/08/2025 2:00 PM EDT Office Visit [facility] Neurology [facility] [address] [place] [address] Aria Juan MD [address] [place] [address] documented as of this encounter Goals Goal Patient Goal Type Associated Problems Recent Progress Patient-Stated? Author Blood Pressure < 140/90 Blood Pressure 148/78(2024 8:37 AM EDT) No Shanique Acosta APRN Maintain a healthy diet, exercise regularly and maintain an ideal body weight General No Paula Hopkins RMA documented as of this encounter Visit Diagnoses Not on filedocumented in this encounter Care Teams Pattern Drum Maker Relationship Specialty Start Date End Date Vaelrie Wesley MD [address] [place] [address] PCP - General Family Medicine 02/23/12 Shanique Acosta APRN [address] [place] [address] Nurse Practitioner 12/21/15 documented as of this encounter
--- OUTSIDE RECORDS SUMMARY | 2025-06-12 09:56 | XMS_ITS | Encounter Summary ---
Author Organization [place] [address] Care Team Providers Care Quality Liaison Name Role Phone Valerie Wesley MD Primary Care Provider Shanique Acosta INTERNAL MEDICINE NURSE PRACTITIONER Unavailable [phone] Reason for Visit * Reason Onset Date Comments Prior Authorization 06/08/2025 MRI of Brain Encounter Details Date Type Department Care Team (Late st Contact Info) Description 06/08/2025 Telephone [facility] 300 [facility] [place] [address] Valerie eWsley MD [address] [place] [address] Prior Authorization (MRI of Brain) Social History Tobacco Use Types Packs/Day Years [...] 10:52 AM EDT Flor Wang SERA documented in this encounter Miscellaneous Notes * Telephone Encounter - Flor Johnson MA - 06/08/2025 4:26 PM EDT LMTCB * Telephone Encounter - Ciarra Carrera MA - 06/08/2025 1:57 PM EDT She would like to speak to you again if you can call her back. * Telephone Encounter - Flor Johnson MA - 06/08/2025 1:39 PM EDT Spoke with pt, she is going to just stick with going to [facility] She will call to schedule * Telephone Encounter - Cristina Awad - 06/08/2025 12:06 PM EDT Select the most appropriate reason for this telephone message: Prior Authorization Request Who is requesting the Prior Auth: Patient What is the Prior Auth for: Imaging Type: Mri Brain w wo contrast Is the patient???s insurance plan that is on file up to date: Yes Informed patient that prior authorizations can take up to 10 business days for response: yes Return Method of Communication: Phone Call Additional Information: Patient will be getting her Mri done at [facility] and was told thatthey will need a PA submitted before they are able to schedule patient for the MRI. [facility] Main line is [phone] & isabelle Herrera dept fax is [phone] documented in this encounter Plan of Treatment Upcoming Encounters Date Type Department Care Team (Late st Contact Info) Description 08/08/2025 2:00 PM EDT Office Visit [facility] Neurology [facility] [address] [place] [address] Aria Juan MD [address] [place] [address] documented as of this encounter Goals Goal Patient Goal Type Associated Problems Recent Progress Patient-Stated? Author Blood Pressure < 140/90 Blood Pressure 148/78(2024 8:37 AM EDT) No Shanique Acosta APRN Maintain a healthy diet, exercise regularly and maintain an ideal body weight General No Paula Hopkins, [facility] documented as of this encounter Visit Diagnoses Not on filedocumented in this encounter Care Teams Quality Liaison Relationship Specialty Start Date End Date Valerie Wesley MD [address] [place] [id number] PCP - General Family Medicine 02/23/12 Shanique Acosta APRN [address] [place] [address] Nurse Practitioner 12/21/15 documented as of this encounter
== END 2025-06-12 23:59 | disposition home or self-care (01) ==
LOC: LAB 09:49
PROVIDERS: PCP Nurse Practitioner; Visit Provider Nurse Practitioner
DX: Z11.1 Encounter for screening for respiratory tuberculosis (principal)
CPT/HCPCS: 36415; 86480

== ENCOUNTER 2025-06-14 15:39 | Outpatient (CLI) | payer BC, SELFPAY ==
--- OUTSIDE RECORDS SUMMARY | 2025-05-15 11:15 | XMS_ITS | Encounter Summary ---
Author Organization [place] [address] Care Team Providers Care Fish Trapper Name Role Phone Valerie Wesley MD Primary Care Provider Shanique Acosta CLOD PULLER Unavailable [phone] Reason for Visit * Reason Comments Migraine Hypertension Discuss elevated BP Encounter Details Date Type Department Care Team (Late st Contact Info) Description 05/15/2025 11:15 AM EDT Office Visit SEP [facility] [address] [facility] [place] [address] Shanique Acosta, CLOD PULLER [address] [place] [address] Essential hypertension (Primary Dx); Acute [...] 01/31/2025 10:52 AM Flor King RMA * Is the person blind or does he/she have serious difficulty seeing even when wearing glasses? Answer Date of Assessment Author No 01/31/2025 10:52 AM Folr King RMA * Does this person have [...] this encounter Progress Notes * Shanique Acosta, CLOD PULLER - 05/15/2025 11:15 AM EDT Assessment & [...] 2:00 PM EDT Office Visit SEP Neurology [facility] [address] [place] [address] Aria Juan MD [address] [place] [address] documented as of this encounter Goals Goal Patient Goal Type Associated Problems Recent Progress Patient-Stated? Author Blood Pressure < 140/90 Blood Pressure 148/78(2024 8:37 AM EDT) No Shanique Acosta APRN Maintain a healthy diet, exercise regularly and maintain an ideal body weight General No [facility] documented as of this encounter Visit Diagnoses [...] 05/15/2025 documented in this encounter Care Teams Fish Trapper Relationship Specialty Start Date End Date Valerie Wesley MD [address] [place] [address] PCP - General Family Medicine 02/23/12 Shanique Acosta APRN [address] [place] [address] Nurse Practitioner 12/21/15 documented as of this encounter
--- OUTSIDE RECORDS SUMMARY | 2025-05-25 08:30 | XMS_ITS | Encounter Summary ---
Author Organization [place] [address] Care Team Providers Care Hat And Cap Sewer Name Role Phone Valerie Wesley MD Primary Care Provider [phone] Shanique Acosta PERMASTONE MECHANIC Unavailable [phone] Reason for Referral * Consultation (Emergency) - Authorization Not Needed Specialty Diagnoses / Procedures Referred By Contac t Referred To Contact Neurology Diagnoses Acute intractable headache, unspecified headache type Procedures NC OFFICE/OUTPATIENT NEW MODERATE MDM 45 MINUTES Beti Jean Baptiste MD [address] [place] [address] Phone: tel: fax: [facility] Neurology [address] [place] [address] Phone: tel: fax: Referral ID Status Reason Start Date Expiration Date Visits Requested Visits Authorized [id number] Authorization Not Needed 05/25/2025 05/25/2026 99 99 * MRI/CAT Scan (Emergency) - Pending Review Specialty Diagnoses / Procedures Referred By Contac t Referred To Contact Radiology Diagnoses Acute intractable headache, unspecified headache type Procedures MRI BRAIN W WO CONTRAST Beti Jean Baptiste MD [address] [place] [address] Phone: tel: fax: Referral ID Status Reason Start Date Expiration Date V isits Requested Visits Authorized [id number] Pending Review 05/25/2025 05/25/2026 1 1 Reason for Visit * Reason Comments Headache still not going away after shot and taking bp med Encounter Details Date Type Department Care Team (Latest Contact Info) Description 05/25/2025 8:30 AM EDT Office Visit [facility] [address] [facility] [place] [address] Beti Jean Baptiste MD [address] [place] [address] Intractable headache, unspecified chronicity pattern, unspecified headache type (Primary Dx) Social History Tobacco Use Types Packs/Day Years Used Date Smoking Tobacco: Never Passive Smoke Exposure: Past Smokeless Tobacco: Never Alcohol Use Standard Drinks/Week Comments Never 0 (1 standard drink = 0.6 oz [...] Sign Reading Time Taken Comments Blood Pressure 148/78 05/25/2025 8:37 AM EDT Pulse 119 05/25/2025 8:37 AM EDT Temperature 37.1 C (98.8 F) 05/25/2025 8:37 AM EDT Respiratory Rate - - Oxygen Saturation 99% 05/25/2025 8:37 AM EDT Inhaled Oxygen Concentration - - Weight 71.7 kg (158 lb) 05/25/2025 8:37 AM EDT Height 162.6 cm (5' 4 ) 05/25/2025 8:37 AM EDT Body Mass Index 27.12 05/25/2025 8:37 AM EDT documented in this encounter Functional [...] of Assessment Author No 01/31/2025 10:52 AM EDFlor Levy RMA * Does this person have difficulty [...] Refills Last Filled Start Date End Date acetaZOLAMIDE (DIAMOX) 250 mg Oral TabletIndications:I ntractable headache, unspecified chronicity pattern, unspecified headache type Take 1 Tablet by mouth 2 times daily. 60 Tablet 2 05/25/2025 documented in this encounter Progress Notes * Beti Jean Baptiste MD - 05/25/2025 8:30 AM EDT Assessment & Plan Intractable headache - Symptoms include intense pressure in the head, particularly at night, heavy feeling in the eyes, intermittent pulsatile tinnitus, occasional nausea, and dizziness. - Discussed the possibility of idiopathic intracranial hypertension due to high intracranial pressure, considering her age, sex, and lack of improvement with other treatment modalities. I am most concerned for idiopathic intracranial hypertension. There is a history of brain aneurysm in mom. - Stat MRI brain with and without contrast - Stat referral to neurology - Will start empiric acetazolamide Dx/Orders: Diagnoses and all orders for this visit: Intractable headache, unspecified chronicity pattern, unspecified headache type - MRI BRAIN W WO CONTRAST; Future - acetaZOLAMIDE (DIAMOX) 250 mg Oral Tablet; Take 1 Tablet by mouth 2 times daily. Dispense: 60 Tablet; Refill: 2 - AMB REFERRAL TO NEUROLOGY Return in about 1 week (around 06/01/2025) for Mychart for headache . 31 minutes spent in care of this patient including care coordination, assessment, medical decision-making. Subjective Maria Dolores Swann is a 30 y.o. female Chief Complaint Patient presents with Headache still not going away after shot and taking bp med I am seeing the patient for the first time. Sent Sunnovat message to Shanique who is out this week: Linda Merritt, since I seen you last my headaches have been still going on with great intensity. The shot I got maybe lasted a day. I???ve been taking the blood pressure medicine also in hopes it would help but it has not. Excedrin still isn???t kicking them. I???m not sure what else to do at this point. Medications: - Bupropion 150 mg ([id number] once or twice daily?) - Adderall 10 - BC - Lamictal 100 mg - Vraylar 1.5 mg daily - Levothyroxine 25 mcg daily - Zepbound 5 mg weekly - Sundays - Valsartan 40 mg daily -As needed meds: Albuterol, Vistaril 25 mg for anxiety, Valtrex 500 mg Most recent office visit with Shanique 05/15/2025 essential hypertension treated with valsartan 40 mgacute intractable headache treated with deop shot and that did improve blood pressure would help aswell refilled albuterol nausea Zofran - pulsatile tinnitus - Tenderness - Visual symptoms History of Present Illness The patient is a 30-year-old female who presents for evaluation of her headache. She reports experiencing severe headaches, likening the sensation to being hit with a hammer. Theseheadaches often wake her up at night and are accompanied by intense pain that radiates throughout her head upon movement. She also experiences pressure in the back of her head, which at this moment is less severe than before. The pain occasionally shoots to the front of her head, starting from the base and spreading outwards. Her eyes feel heavy, and she sometimes experiences pressure behind themwhen the headache is particularly bad. She has not noticed any changes in her vision. These symptoms have been ongoing for approximately 1.5 months. She initially thought they might be related to her menstrual cycle, but she has never experienced headaches like these before. She also reports mild nausea, for which she was prescribed Zofran, which provided some relief. She occasionally feels dizzyor lightheaded, describing it as feeling spacey. The headaches are so severe that they prevent her from moving at times and she cannot look at light, and she often cannot return to sleep after waking up due to the pain. The pain was initially more pronounced on the left side, but it has since spread to both sides. She has no history of neck or back injuries. She has tried various treatments, including Excedrin, Tylenol, ibuprofen, hot showers, and cold showers, but none have provided relief. She also reports hearing a whooshing sound in her ears when the headache is particularly bad, which is not constant. She describes the pain in her neck as deep and notes that her shoulders are not terribly painful to touch. Despite taking Excedrin, the pain persists. She was prescribed blood pressure medication, but her blood pressure remains high. Asteroid shot was ineffective. She has attempted to reduce her caffeine intake, but this has not improved her symptoms. She takes Wellbutrin once a day for depression, Adderall every morning, Vistaril at night for anxiety, Lamictal and Vraylar at night, and Bountee on Sundays. Social History: Coffee/Tea/Caffeine-containing Drinks: She consumes caffeine. Sleep: She reports difficulty returning to sleep after waking up due to headaches. PAST SURGICAL HISTORY: Breast reduction surgery FAMILY HISTORY Her mother had an aneurysm 2 years ago and described it as feeling like someone was hitting her in the head with a hammer and experiencing buzzing in her ears. Her mother also has high blood pressure. Her father has high blood pressure as well. Review of Systems Objective Blood pressure (!) 148/78, pulse 119, temperature 98.8 ??F (37.1 ??C), temperature source Forehead,height 5' 4 (1.626 m), weight 158 lb (71.7 kg), last menstrual period 05/11/2025, SpO2 99%, not currently . Body mass index is 27.12 kg/m??. Physical Exam Vitals reviewed. Constitutional: Appearance: Normal appearance. HENT: Head: Normocephalic and atraumatic. Eyes: General: Lids are normal. Vision grossly intact. Extraocular Movements: Right eye: Normal extraocular motion and no nystagmus. Left eye: Normal extraocular motion and no nystagmus. Conjunctiva/sclera: Right eye: Right conjunctiva is not injected. No chemosis. Left eye: Left conjunctiva is not injected. No chemosis. Pupils: Pupils are equal, round, and reactive to light. Pulmonary: Effort: Pulmonary effort is normal. Neurological: Mental Status: She is alert and oriented to person, place, and time. Cranial Nerves: No dysarthria or facial asymmetry. Motor: No weakness, tremor, atrophy or abnormal muscle tone. Coordination: Coordination is intact. Gait: Gait is intact. Psychiatric: Mood and Affect: Mood normal. Behavior: Behavior normal. Thought Content: Thought content normal. Judgment: Judgment normal. Results The provider educated the patient (or legal quality assurance representative) on the use of the ambient listening artificial intelligence tool, Quikly. They were informed that this AI tool processes the conversation to generate a clinical note with the expected benefit of improved accuracy while achieving an improved encounter experience for the patient and provider.?The provider explained that the medical information captured by the AI tool including, but not limited to, diagnoses and treatment plan would be protected in accordance with applicable privacy laws and that all diagnoses and treatment decisions would be made by the provider. The provider explained that the note generated will be reviewed bythe provider for accuracy to minimize potential errors.? The patient was given an opportunity to ask questions and opt out of proceeding with the use of the AI tool. After being informed of such information, the patient (or legal quality assurance representative), and each individual in attendance with the patient, verbally consented to the use of the AI tool. documented in this encounter Plan of Treatment Upcoming Encounters Date Type Department Care Team (Late st Contact Info) Description 08/08/2025 2:00 PM EDT Office Visit SEP Neurology [facility] [address] [place] [address] Aria Juan MD [address] [place] [address] Scheduled Orders Name Type Priority Associated Diagnoses Orde r Schedule MRI BRAIN W WO CONTRAST Imaging STAT Intractable headache, unspecified chronicity pattern, unspecified headache type 1 Occurrences starting 05/25/2025 until 05/25/2026 Scheduled Referrals Name Type Priority Associated Diagnoses Orde r Schedule AMB REFERRAL TO NEUROLOGY Outpatient Referral STAT Intractable headache, unspecified chronicity pattern, unspecified headache type Ordered: 05/25/2025 documented as of this encounter Goals Goal Patient Goal Type Associated Problems Recent Progress Patient-Stated? Author Blood Pressure < 140/90 Blood Pressure 148/78(2024 8:37 AM EDT) No Shanique Acosta APRN Maintain a healthy diet, exercise regularly and maintain an ideal body weight General No Paula Hopkins, [facility] documented as of this encounter Visit Diagnoses Diagnosis Intractable headache, unspecified chronicity pattern, unspecified headache type- Primary documented in this encounter Discontinued Medications Medication Sig Discontinue Reason Start Date End Da te drospirenone-ethinyl estradioL (DIONTE) 3-0.02 mg Oral Tablet Take 1 Tablet by mouth daily. DELETE-Therapy completed 05/25/2025 documented as of this encounter Historical Medications * This list may reflect changes made after this encounter. traZODone (DESYREL) 50 mg Oral Tablet TAKE 1/2 TO 1 1/2 TABLET BY MOUTH ONCE DAILY 05/22/2025 added in this encounter Care Teams Hat And Cap Sewer Relationship Specialty Start Date End Date Valerie Wesley MD [address] [place] [address] PCP - General Family Medicine 02/23/12 Shanique Acosta APRN [address] [place] [address] Nurse Practitioner 12/21/15 documented as of this encounter
--- NOTE | 2025-06-14 | MR_ITS ---
FINAL REPORT CLINICAL HISTORY: reoccurring headaches COMPARISON: None FINDINGS: Multiplanar MR imaging of the brain was performed without and with contrast. There is no evidence of intracranial hemorrhage or mass. No abnormal extra-axial fluid collection is seen. The ventricular size is within normal limits. There is no evidence of shift of the midline structures. The posterior fossa and brainstem have an unremarkable appearance. No area of abnormal restricted diffusion is identified. No abnormal contrast enhancement is seen. Normal major vessel vascular flow voids are noted. Minimal mucoperiosteal thickening is noted of the left maxillary sinus. No air-fluid levels are seen. IMPRESSION: No acute intracranial abnormality identified. Reviewed, Interpreted and Dictated by Bijan Perez MD Transcribed by Ramya Dominguez Authenticated and [facility]
--- OUTSIDE RECORDS SUMMARY | 2025-06-14 15:42 | XMS_ITS | Encounter Summary ---
Author Organization [place] [address] Care Team Providers Care Informatica Name Role Phone Valerie Wesley MD Primary Care Provider [phone] Shanique Acosta EQUIPMENT OR MACHINERY CLEANER Unavailable [phone] Encounter Details Date Type Department Care Team (Late st Contact Info) Description 11/24/2022 Hospital Encounter [facility] [address] [facility] [address] [place], [place] [id number] Social History Tobacco Use Types Packs/Day Years [...] 2:00 PM EDT Office Visit [facility] Neurology [facility] [address] [place] [address] Aria Juan MD [address] [place] [address] documented as of this encounter Goals Goal Patient Goal Type Associated Problems Recent Progress Patient-Stated? Author Blood Pressure < 140/90 Blood Pressure 148/78(2024 8:37 AM EDT) No Acosta, Shanique S, EQUIPMENT OR MACHINERY CLEANER Maintain a healthy diet, exercise regularly and maintain an ideal body weight General No Paula Hopkins, A documented as of this encounter Visit Diagnoses Not on filedocumented in this encounter Care Teams Informatica Relationship Specialty Start Date End Date Valerie Wesley MD [address] [place] [address] PCP - General Family Medicine 02/23/12 Shanique Acosta APRN [address] [place] [address] Nurse Practitioner 12/21/15 documented as of this encounter
--- OUTSIDE RECORDS SUMMARY | 2025-06-14 15:42 | XMS_ITS | Encounter Summary ---
Author Organization [place] [address] Care Team Providers Care Advanced Solutions Architect Name Role Phone Valerie Wesley MD Primary Care Provider [phone] Shanique Acosta FOLDER STITCHER OPERATOR Unavailable [phone] Reason for Visit * Reason Onset Date Comments Other 06/05/2025 mri order to be sent to [facility] Encounter Details Date Type Department Care Team (Late st Contact Info) Description 06/05/2025 Telephone [facility] 300 [facility] [place] [address] Valerie Wesley MD [address] [place] [address] Other (mri order to be sent to [facility]) Social History Tobacco Use Types Packs/Day Years [...] asking for it to be sent to [facility] When is this needed by: nicole Where does this information need to go: pcp Return Method of Communication: Phone Call Additional information:N/A documented in this encounter Plan of Treatment Upcoming Encounters Date Type Department Care Team (Late st Contact Info) Description 08/08/2025 2:00 PM EDT Office Visit [facility] [address] [place] [address] Aria Juan MD [address] [place] [address] documented as of this encounter Goals Goal Patient Goal Type Associated Problems Recent Progress Patient-Stated? Author Blood Pressure < 140/90 Blood Pressure 148/78(2024 8:37 AM EDT) No Shanique Acosta APRN Maintain a healthy diet, exercise regularly and maintain an ideal body weight General No Paula Hopkins RMA documented as of this encounter Visit Diagnoses Not on filedocumented in this encounter Care Teams Advanced Solutions Architect Relationship Specialty Start Date End Date Valerie Wesley MD [address] [place] [address] PCP - General Family Medicine 02/23/12 Shanique Acosta APRN [address] [place] [address] Nurse Practitioner 12/21/15 documented as of this encounter
--- OUTSIDE RECORDS SUMMARY | 2025-06-14 15:42 | XMS_ITS | Encounter Summary ---
Author Organization [facility] [place] [address] Care Team Providers Care Mason Tender Restoration Labor Name Role Phone Valerie Wesley MD Primary Care Provider [phone] Shanique Acosta INTERVENTION ANALYST Unavailable [phone] Encounter Details Date Type Department Care Team [...] 2:00 PM EDT Office Visit SE[facility] Neurology [facility] [address] [place] [address] Aria Juan MD [address] [place] [address] documented as of this encounter Goals Goal Patient Goal Type Associated Problems Recent Progress Patient-Stated? Author Blood Pressure < 140/90 Blood Pressure 148/78(2024 8:37 AM EDT) No Shanique Acosta APRN Maintain a healthy diet, exercise regularly and maintain an ideal body weight General No Paula Hopkins RMA documented as of this encounter Visit Diagnoses Not on filedocumented in this encounter Care Teams Mason Tender Restoration Labor Relationship Specialty Start Date End Date Valerie Wesley MD [address] [place] [address] PCP - General Family Medicine 02/23/12 Shanique Acosta APRN [address] [place] [address] Nurse Practitioner 12/21/15 documented as of this encounter
--- OUTSIDE RECORDS SUMMARY | 2025-06-14 15:42 | XMS_ITS | Encounter Summary ---
Author Organization [place] [address] Care Team Providers Care Tunnel Elastic Operator Chainstitch Name Role Phone Valerie Wesley MD Primary Care Provider Shanique Acosta BUNDLES HANGER Unavailable [phone] Reason for Visit * Reason Onset Date Comments Prior Authorization 06/08/2025 PA submitted for Zepbound 5mg pen Approved Encounter Details Date Type Department Care Team (Late st Contact Info) Description 06/08/2025 Telephone [facility] 300 [facility] [place] [address] Shanique Acosta, BUNDLES HANGER [address] [place] [address] Prior Authorization (PA submitted for Zepbound 5mg pen Approved) Social History Tobacco Use Types Packs/Day [...] Telephone Encounter - Rosita Montaño MA - 06/12/2025 3:45 PM EDT PA for Zepbound 5mg pen APPROVED. CaseId:[id number];Status:Approved;Review Type:Prior Auth;Coverage Start Date:05/09/2025;Coverage EndDate:06/08/2026;. Authorization Expiration Date: June 08, 2026. * Telephone Encounter - Rosita Montaño MA - 06/08/2025 9:39 AM EDT PA submitted for Zepbound 5mg pen documented in this encounter Plan of Treatment Upcoming Encounters Date Type Department Care Team (Late st Contact Info) Description 08/08/2025 2:00 PM EDT Office Visit [facility]rology [facility] [address] [place] [address] Aria Juan MD [address] [place] [address] documented as of this encounter [...] on filedocumented in this encounter Care Teams Tunnel Elastic Operator Chainstitch Relationship Specialty Start Date End Date Valerie Wesley MD [address] [place] [address] PCP - General Family Medicine 02/23/12 Shanique Acosta APRN [address] [place] [address] Nurse Practitioner 12/21/15 documented as of this encounter
--- OUTSIDE RECORDS SUMMARY | 2025-06-14 15:42 | XMS_ITS | Encounter Summary ---
Author Organization [place] [address] Care Team Providers Care Paper Counter Name Role Phone Valerie Wesley MD Primary Care Provider [phone]- [phone] Shanique Acosta PLASTICS PATTERNMAKER Unavailable Reason for Visit * Reason Onset Date Comments Advice Only 05/25/2025 Encounter Details Date Type Department Care Team (Late st Contact Info) Description 05/25/2025 Telephone [facility] [address] [place] [address] Domonique Dominguez LPN Advice Only [...] - 05/25/2025 11:52 AM EDT PC to [facility] to set up STAT Mri per order. They will not schedule MRI for pt r/t no prior authorization for service. PC to pt to notify- states I would still like to have the mri at [place], if I can. Referral number given to pt. Pt will call us back if further help is needed. documented in this encounter Plan of Treatment Upcoming Encounters Date Type Department Care Team (Late st Contact Info) Description 08/08/2025 2:00 PM EDT Office Visit SEP Neurology [facility] [address] [place] [address] Aria Juan MD [address] [place] [address] documented as of this encounter Goals Goal Patient Goal Type Associated Problems Recent Progress Patient-Stated? Author Blood Pressure < 140/90 Blood Pressure 148/78(2024 8:37 AM EDT) No Shanique Acosta APRN Maintain a healthy diet, exercise regularly and maintain an ideal body weight General No Paula Hopkins RMA documented as of this encounter Visit Diagnoses Not on filedocumented in this encounter Care Teams Paper Counter Relationship Specialty Start Date End Date Valerie Wesley MD [address] [place] [address] PCP - General Family Medicine 02/23/12 Shanique Acosta APRN [address] [place] [address] Nurse Practitioner 12/21/15 documented as of this encounter
--- OUTSIDE RECORDS SUMMARY | 2025-06-14 15:42 | XMS_ITS | Encounter Summary ---
Author Organization [place] [address] Care Team Providers Care Customer Service Attendant Name Role Phone Valerie Wesley MD Primary Care Provider Shanique Acosta CRAYON SORTING MACHINE FEEDER Unavailable [phone] Reason for Visit * Reason Onset Date Comments Prior Authorization 05/30/2025 PA submitted for Nurtec 75mg tablet Approved Encounter Details Date Type Department Care Team (Late st Contact Info) Description 05/30/2025 Telephone [facility] 300 [facility] [place] [address] Shanique Acosta, CRAYON SORTING MACHINE FEEDER [address] [place] [address] Prior Authorization (PA submitted for [...] EDT PA for Nurtec 75mg tablet APPROVED. CaseId:[id number];Status:Approved;Review Type:Prior Auth;Coverage Start Date:04/30/2025;Coverage EndDate:05/30/2026; * Telephone Encounter - Rosita Montaño MA - 05/30/2025 10:45 AM EDT PA submitted for Nurtec 75mg tablet documented in this encounter Plan of Treatment Upcoming Encounters Date Type Department Care Team (Late st Contact Info) Description 08/08/2025 2:00 PM EDT Office Visit SEP Neurology [facility] [address] [place] [address] Aria Juan MD [address] [place] [address] documented as of this encounter Goals Goal Patient Goal Type Associated Problems Recent Progress Patient-Stated? Author Blood Pressure < 140/90 Blood Pressure 148/78(2024 8:37 AM EDT) No Shanique Acosta APRN Maintain a healthy diet, exercise regularly and maintain an ideal body weight General No Paula Hopkins RMA documented as of this encounter Visit Diagnoses Not on filedocumented in this encounter Care Teams Customer Service Attendant Relationship Specialty Start Date End Date Valerie Wesley MD [address] [place] [address] PCP - General Family Medicine 02/23/12 Shanique Acosta APRN [address] [place] [address] Nurse Practitioner 12/21/15 documented as of this encounter
--- OUTSIDE RECORDS SUMMARY | 2025-06-14 15:42 | XMS_ITS | Encounter Summary ---
Author Organization [place] [address] Care Team Providers Care Maintenance And Repair Worker Name Role Phone Valerie Wesley MD Primary Care Provider Shanique Acosta MOLD TOOLER Unavailable [phone] Reason for Visit * Reason Onset Date Comments Prior Authorization 06/08/2025 MRI of Brain Encounter Details Date Type Department Care Team (Late st Contact Info) Description 06/08/2025 Telephone [facility] 300 [facility] [place] [address] Valerie Wesley MD [address] [place] [address] Prior Authorization (MRI of Brain) [...] will be getting her Mri done at [facility] and was told thatthey will need a PA submitted before they are able to schedule patient for the MRI. [facility] Main line is [phone] & isabelle Herrera dept fax is [phone] documented in this encounter Plan of Treatment Upcoming Encounters Date Type Department Care Team (Late st Contact Info) Description 08/08/2025 2:00 PM EDT Office Visit [facility] Neurology [facility] [address] [place] [address] Aria Juan MD [address] [place] [address] documented as of this encounter Goals Goal Patient Goal Type Associated Problems Recent Progress Patient-Stated? Author Blood Pressure < 140/90 Blood Pressure 148/78(2024 8:37 AM EDT) No Shanique Acosta APRN Maintain a healthy diet, exercise regularly and maintain an ideal body weight General No Paula Hopkins, [facility] documented as of this encounter Visit Diagnoses Not on filedocumented in this encounter Care Teams Maintenance And Repair Worker Relationship Specialty Start Date End Date Valerie Wesley MD [address] [place] [address] PCP - General Family Medicine 02/23/12 Shanique Acosta APRN [address] [place] [address] Nurse Practitioner 12/21/15 documented as of this encounter
--- OUTSIDE RECORDS SUMMARY | 2025-06-14 15:42 | XMS_ITS | Encounter Summary ---
Author Organization [place] [address] Care Team Providers Care Grout Machine Tender Name Role Phone Valerie Wesley MD Primary Care Provider [phone]- [phone] Shanique Acosta [employer] Unavailable [phone] Encounter Details Date Type Department Care Team (Late Contact Info) Description 05/01/2016 Orders Only SEP Gastro [facility] [address] [facility] [address] [place] [address] Osmin Mendez MD Social History [...] PM EDT Office Visit SEP Neurology [facility] [address] [place] [address] Aria Juan MD [address] [place] [address] documented as of this encounter Procedures Procedure Name Priority Date/Time Associated Diagnosis Comments GMED EGD Routine 05/01/2016 9:45 AM EDT documented in this encounter Results * GMED EGD (05/01/2016 9:45 AM EDT) 05/01/2016 9:45 AM EDT Impressions [facility] - 05/01/2016 9:45 AM EDT Normal mucosa in the whole esophagus. Altered mucosal texture and nodularity in the fundus. (Biopsy). Normal mucosa in the whole examined duodenum. (Biopsy). Plan: Await pathology results This section is an excerpt of the full report. us Osmin Mendez MD GI PROCEDURE ORDERABLES Final R esult [facility] [address] [place] [address] documented in this encounter Visit Diagnoses Not on filedocumented in this encounter Additional Health Concerns Infection Onset Date Last Indicated Resolved Time R/O COVID-19 03/15/2021 03/15/2021 03/16/2021 2:07 AM EDT documented as of this encounter Care Teams Grout Machine Tender Relationship Specialty Start Date End Date Valerie Wesley MD [address] [place] [address] PCP - General Family Medicine 02/23/12 Shanique Acosta APRN [address] [place] [address] Nurse Practitioner 12/21/15 documented as of this encounter
--- OUTSIDE RECORDS SUMMARY | 2025-06-14 15:42 | XMS_ITS | Encounter Summary ---
Author Organization [place] [address] Care Team Providers Care Policy Intern Name Role Phone Valerie Wesley MD Primary Care Provider [phone]- [phone] Shanique Acosta SIMULATION SPECIALIST Unavailable [phone] Reason for Visit * Reason Onset Date Comments Prior Authorization 05/25/2025 MRI Encounter Details Date Type Department Care Team (Late st Contact Info) Description 05/25/2025 Telephone [facility] [address] [facility] [place] [address] Valerie Wesley MD [address] [place] [address] Prior Authorization (MRI ) Social [...] of Assessment Author No 01/31/2025 10:52 AM EDlFor Levy SERA * Does this person have [...] 2:00 PM EDT Office Visit SEP Neurology [facility] [address] [place] [address] Aria Juan MD [address] [place] [address] documented as of this encounter Goals Goal Patient Goal Type Associated Problems Recent Progress Patient-Stated? Author Blood Pressure < 140/90 Blood Pressure 148/78(2024 8:37 AM EDT) No Shanique Acosta APRN Maintain a healthy diet, exercise regularly and maintain an ideal body weight General No Paula Hopkins RMA documented as of this encounter Visit Diagnoses Not on filedocumented in this encounter Care Teams Policy Intern Relationship Specialty Start Date End Date Valerie Wesley MD [address] [place] [address] PCP - General Family Medicine 02/23/12 Shanique Acosta APRN [address] [place] [address] Nurse Practitioner 12/21/15 documented as of this encounter
--- OUTSIDE RECORDS SUMMARY | 2025-06-14 15:42 | XMS_ITS | Encounter Summary ---
Author Organization [place] [address] Care Team Providers Care Production Wood Craftsman Name Role Phone Valerie Wesley MD Primary Care Provider [phone]- [phone] Shanique Acosta CHILD CARE PROVIDER Unavailable Encounter Details Date Type Department Care Team (Late st Contact Info) Description 05/30/2025 Orders Only SEP [facility] [address] [place] [address] Shanique Acosta, CHILD CARE PROVIDER [address] [place] [address] Episodic migraine (Primary Dx) Social [...] 2:00 PM EDT Office Visit SEP Neurology [facility] [address] [place] [address] Aria Juan MD [address] [place] [address] documented as of this encounter Goals Goal [...] Primary documented in this encounter Care Teams Production Wood Craftsman Relationship Specialty Start Date End Date Valerie Wesley MD [address] [place] [address] PCP - General Family Medicine 02/23/12 Shanique Acosta APRN [address] [place] [address] Nurse Practitioner 12/21/15 documented as of this encounter
--- OUTSIDE RECORDS SUMMARY | 2025-06-14 15:42 | XMS_ITS | Clinical Summary ---
Author Organization [facility] Address [address] [place] [address] Phone [email or web address] Care Team Providers Care Cardiac Rehabilitation Program Director Name Role Phone Unavailable Primary Care Provider [...]
--- OUTSIDE RECORDS SUMMARY | 2025-06-14 15:42 | XMS_ITS | Encounter Summary ---
Author Organization [facility] [address] Care Team Providers Care Head Chef Name Role Phone Valerie Wesley MD Primary Care Provider [phone]- [phone] Shanique Acosta [employer]NAG[employer] Unavailable [phone] Encounter Details Date Type Department Care Team [...] 2:00 PM EDT Office Visit SEP Neurology [facility] [address] [place] [address] Aria Juan MD [address] [place] [address] documented as of this encounter Goals Goal Patient Goal Type Associated Problems Recent Progress Patient-Stated? Author Blood Pressure < 140/90 Blood Pressure 148/78(2024 8:37 AM EDT) No Shanique Acosta APRN Maintain a healthy diet, exercise regularly and maintain an ideal body weight General No Paula Hopkins RMA documented as of this encounter Visit Diagnoses Not on filedocumented in this encounter Care Teams Head Chef Relationship Specialty Start Date End Date Valerie Wesley MD [address] [place] [address] PCP - General Family Medicine 02/23/12 Shanique Acosta APRN [address] [place] [address] Nurse Practitioner 12/21/15 documented as of this encounter
--- OUTSIDE RECORDS SUMMARY | 2025-06-14 15:42 | XMS_ITS | Clinical Summary ---
Author Organization [facility] Address [address] [place] [address] Phone Care Team Providers Care Scale Model Maker Name Role Phone Valerie Wesley MD Primary Care Provider [phone]- [phone] Shanique Acosta PADDER Unavailable [phone] Allergies Active Allergy Reactions Criticality Noted Date [...] other day. 16 Tablet 2 5 Active Active Problems Problem Noted Date Diagnosed Date [...] Type Department Care Team Description 06/08/2025 Telephone [facility] [address] [place] [address] Valerie Wesley MD Prior Authorization (MRI of Brain) 06/08/2025 Telephone SEP [facility] [address] [place] [address] Shanique Acosta APRN Prior Authorization (PA submitted for Zepbound 5mg pen Approved) 06/05/2025 Telephone [facility] [address] [place] [address] Valerie Wesley MD Other (mri order [facility]) 05/30/2025 Telephone [facility] [address] [place] [address] Shanique Acosta APRN Prior Authorization (PA submitted for Nurtec 75mg tablet Approved) 05/30/2025 Orders Only [facility] [address] [place] [address] Shanique Acosta APRN Episodic migraine (Primary Dx) 05/25/2025 8:30 AM EDT Office Visit SEP [facility] [address] [place] [address] Beti Jean Baptiste MD Intractable headache, unspecified chronicity pattern, unspecified headache type (Primary Dx) 05/25/2025 Telephone [facility] [address] [place] [address] Valerie Wesley MD Prior Authorization (MRI ) 05/25/2025 Telephone SEP [facility] [address] [place] [address] Domonique Dominguez LPN Advice Only 05/23/2025 Travel 05/15/2025 11:15 AM EDT Office Visit [facility] [place] [facility] [address] [place] [address] Shanique Acosta, PADDER Essential hypertension (Primary Dx); Acute intractable headache, [...] PPD Test 06/08/2017, 7,05/18/2017,11/11 Tdap 04/14/2025,05/20/2017,06/22/2006 Varicella 05/15/2025, 5,06/20/2009,10/01 Surgical History Surgery Date Site/Laterality Comments APPENDECTOMY ~2007 WISDOM TOOTH EXTRACTION ~2009 LAPAROTOMY 07/04/2014 Dr Desai @ [facility] BREAST REDUCTION SURGERY 12/11/2015 Breast/Bilateral BILATERAL BREAST REDUCTION; Surgeon: Mahesh Portillo MD; Location: [facility]; Service: Plastics HYSTEROSCOPY 02/28/2016 N/A HYSTEROSCOPY DILATION AND CURETTAGE CERVICAL BIOPSY ; Surgeon: Chu Desai MD; Location: [facility] OR; Service: Gynecology UPPER GASTROINTESTINAL ENDOSCOPY COLONOSCOPY 02/18/2017 N/A Colonoscopy with biopsy; Surgeon: Osmin Mendez MD; Location: [facility]; Service: Endoscopy Medical History Medical History [...] 2:00 PM EDT Office Visit SEP Neurology [facility] [address] [place] [address] Aria Juan MD [address] [place] [address] Health Maintenance Due Date Last Done [...] body weight General No Paula Hopkins RMA [place] [id number] ANTHEM PPO ANTHEM PPO Care Teams Scale Model Maker Relationship Specialty Start Date End Date Valerie Wesley MD [address] [place] [address] PCP - General Family Medicine 02/23/12 Shanique Acosta APRN [address] [place] [address] Nurse Practitioner 12/21/15
[2025-06-14 16:26] LABS: Blood Urea Nitrogen 12 mg/dl (7-17); Creatinine,Serum 0.80 mg/dl (0.52-1.04); Estimated Glomerular Filt Rate 84 ml/min (>60); GFR (African American) 102 ML/MIN (>60)
[2025-06-14] MEDS: SODIUM CHLORIDE 0.9% 10ML SYR (RAD ONLY) 10 ML IV (16:58)
[2025-06-14] MEDS: GADOTERIDOL INJ 20ML SYRINGE 15 ML IV (16:58)
== END 2025-06-14 23:59 | disposition home or self-care (01) ==
LOC: RAD 15:40
PROVIDERS: PCP Nurse Practitioner; Visit Provider Family Medicine
DX: R51.9 Headache, unspecified (principal)
CPT/HCPCS: 36415; 70553; 82565; 84520; A9576

== ENCOUNTER 2025-07-18 17:34 | Outpatient (CLI) | payer BC, SELFPAY ==
--- OUTSIDE RECORDS SUMMARY | 2025-05-25 08:30 | XMS_ITS | Encounter Summary ---
Author Organization [place] [address] Care Team Providers Care Vice President Underwriting Name Role Phone Valerie Wesley MD Primary Care Provider [phone]- [phone] Shanique Acosta OPTOMECHANICAL ENGINEER Unavailable [phone] Reason for Referral * Consultation (Emergency) - Authorization Not Needed Specialty Diagnoses / Procedures Referred By Contac t Referred To Contact Neurology Diagnoses Acute intractable headache, unspecified headache type Procedures [place] OFFICE/OUTPATIENT NEW MODERATE MDM 45 MINUTES Beti Jean Baptiste MD [address] [place] [address] Phone: tel: fax: [facility] Neurology [address] [place] [phone] Phone: tel: fax: Referral ID Status Reason Start Date Expiration Date Visits Requested Visits Authorized [id number] Authorization Not Needed 05/25/2025 05/25/2026 99 99 * MRI/CAT Scan (Emergency) - Pending Review Specialty Diagnoses / Procedures Referred By Contac t Referred To Contact Radiology Diagnoses Acute intractable headache, unspecified headache type Procedures MRI BRAIN W WO CONTRAST Beti Jean Baptiste MD [address] [place] [address] Phone: tel: fax: Referral ID Status Reason Start Date Expiration Date V isits Requested Visits Authorized [id number] Pending Review 05/25/2025 05/25/2026 1 1 Reason for Visit * Reason Comments Headache still not going away after shot and taking bp med Encounter Details Date Type Department Care Team (Latest Contact Info) Description 05/25/2025 8:30 AM EDT Office Visit [facility] [address] [facility] [place] [address] Beti Jean Baptiste MD [address] [place] [address] Intractable headache, unspecified chronicity pattern, [...] of Assessment Author No 01/31/2025 10:52 AM EDFlro Levy RMA * Does this person have [...] the patient for the first time. Sent [employer] message to Shanique who is out this [...] this point. Medications: - Bupropion 150 mg (61-dnrd-yiyita once or twice daily?) - Adderall 10 [...] The provider educated the patient (or legal escrow representative) on the use of the ambient listening artificial intelligence tool, [employer]. They were informed that this AI tool [...] of such information, the patient (or legal escrow representative), and each individual in attendance with the patient, verbally consented to the use of the AI tool. documented in this encounter Plan of Treatment Upcoming Encounters Date Type Department Care Team (Late st Contact Info) Description 08/08/2025 2:00 PM EDT Office Visit SEP Neurology [facility] [address] [place] [address] Aria Juan MD [address] [place] [place] [address] Scheduled Orders Name Type Priority [...] 05/22/2025 added in this encounter Care Teams Vice President Underwriting Relationship Specialty Start Date End Date Valerie Wesley MD [address] [place] [address] PCP - General Family Medicine 02/23/12 Shanique Acosta APRN [address] [place] [phone] Nurse Practitioner 12/21/15 documented as of this encounter
--- OUTSIDE RECORDS SUMMARY | 2025-07-18 17:39 | XMS_ITS | Encounter Summary ---
Author Organization [place] [address] Care Team Providers Care Accounts Payable Assistant Name Role Phone Valerie Wesley MD Primary Care Provider Shanique Acosta DATABASE DESIGNER Unavailable [phone] Reason for Visit * Reason Comments Medication Refill Encounter Details Date Type Department Care Team (Late st Contact Info) Description 07/18/2025 Refill SEP [facility] [address] [facility] [place] [address] Shanique Acosta, DATABASE DESIGNER [address] [place] [address] Medication Refill Social History Tobacco Use Types Packs/Day Years [...] 2:00 PM EDT Office Visit SEP Neurology [facility] [address] [place] [address] Aria Juan MD [address] [place] [address] documented as of this encounter Goals Goal Patient Goal Type Associated Problems Recent Progress Patient-Stated? Author Blood Pressure < 140/90 Blood Pressure 148/78(2024 8:37 AM EDT) No Shanique Acosta APRN Maintain a healthy diet, exercise regularly and maintain an ideal body weight General No Paula Hopkins RMA documented as of this encounter Visit Diagnoses Diagnosis Obesity, Class I, BMI 30-34.9 Obesity, unspecified documented in this encounter Care Teams Accounts Payable Assistant Relationship Specialty Start Date End Date Valerie Wesley MD [address] [place] [address] PCP - General Family Medicine 02/23/12 Shanique Acosta APRN [address] [place] [address] Nurse Practitioner 12/21/15 documented as of this encounter
--- OUTSIDE RECORDS SUMMARY | 2025-07-18 17:39 | XMS_ITS | Clinical Summary ---
Author Organization [facility] Address [address] [place] [address] Phone Care Team Providers Care Research Program Intern Name Role Phone Valerie Wesley MD Primary Care Provider [phone]- [phone] Shanique Acosta CMO Unavailable [phone] Allergies Active Allergy Reactions Criticality Noted Date [...] TABLET BY MOUTH ONCE DAILY 5 Active rimegepant 75 mg Oral Tablet, [...] Encounters Date Type Department Care Team Description 07/18/2025 Refill SEP [facility] [address] [place] [address] Shanique Acosta APRN Medication Refill 06/15/2025 Telephone [facility] [address] [place] [address] Beti Jean Baptiste MD Results 06/08/2025 Telephone [facility] [address] [place] [address] Valerie Wesley MD Prior Authorization (MRI of Brain) 06/08/2025 Telephone [facility] [address] [place] [address] Shanique Acosta APRN Prior Authorization (PA submitted for Zepbound 5mg pen Approved) 06/05/2025 Telephone [facility] [address] [facility] [place] [address] Valerie Wesley MD Other (mri order to be sent to [facility]) 05/30/2025 Telephone [facility] [address] [place] [address] Shanique Acosta APRN Prior Authorization (PA submitted for Nurtec 75mg tablet Approved) 05/30/2025 Orders Only [facility] [address] [place] [address] Shanique Acosta APRN Episodic migraine (Primary Dx) 05/25/2025 8:30 AM EDT Office Visit [facility] [address] [place] [address] Beti Jean Baptiste MD Intractable headache, unspecified chronicity pattern, unspecified headache type (Primary Dx) 05/25/2025 Telephone [facility] [place] [address] Valerie Wesley MD Prior Authorization (MRI ) 05/25/2025 Telephone [facility] [address] [facility] [place] [address] Domonique Dominguez LPN Advice Only 05/23/2025 Travel 05/15/2025 11:15 AM EDT Office Visit [facility] [place] [address] Shanique Acosta APRN Essential hypertension [...] EXTRACTION ~[address]OTOMY 07/04/2014 Dr Desai @ [facility] BREAST REDUCTION SURGERY 12/11/2015 Breast/Bilateral BILATERAL BREAST REDUCTION; Surgeon: Mahesh Portillo MD; [facility]; Service: Plastics HYSTEROSCOPY 02/28/2016 N/A HYSTEROSCOPY DILATION AND CURETTAGE CERVICAL BIOPSY ; Surgeon: Chu Desai MD; Location: [facility]; Service: Gynecology UPPER GASTROINTESTINAL ENDOSCOPY COLONOSCOPY [...] EDT Office Visit SEP Neurology [facility] [address] [place] [address] Aria Juan MD [address] [place] [address] Health Maintenance Due Date Last Done Comments Pneumococcal Vaccine 0-49 (1 of 2 - PCV) 2014 HPV/Pap Cotest 2025 COVID-19 Vaccine (3 - 2024- season) 2025 11/07/2021, 10/14/2021 Influenza Vaccine (#1) 2025 , 08/25/2023, 07/27/2020, [...] maintain an ideal body weight General No Tianna Hopkinskoffi Pittman, A Procedures Procedure Name Priority Date/Time Associated Diagnosis Comments SCANNED LABS 06/27/2025 3:01 PM EDT from Last 3 Months Results * SCANNED LABS (06/27/2025 3:01 PM EDT) 06/27/2025 3:01 PM EDT us Unknown Provider HEMATOLOGY ORDERABLES Final Res ult from Last 3 Months Insurance ANTHEM PPO Care Teams Research Program Intern Relationship Specialty Start Date End Date Valerie Wesley MD [address] [place] [address] PCP - General Family Medicine 02/23/12 Shanique Acosta APRN [address] [place] [address] Nurse Practitioner 12/21/15
--- OUTSIDE RECORDS SUMMARY | 2025-07-18 17:39 | XMS_ITS | Encounter Summary ---
Author Organization [employer] [address] Care Team Providers Care Lead Manufacturing Engineering Tech Name Role Phone Valerie Wesley MD Primary Care Provider Shanique Acosta [place] PARTY PLAN SALES UNIT SALES LEADER Unavailable [phone] Reason for Visit * Reason Onset Date Comments Results 06/15/2025 Encounter Details Date Type Department Care Team (Late st Contact Info) Description 06/15/2025 Telephone [facility] [address] [facility] [place] [address] Beti Jean Baptiste MD [address] [place] [address] Results Social History Tobacco Use Types Packs/Day Years [...] Assessment Author No 01/31/2025 10:52 AM EDT KathleenSumeetFlor BoltonSERA dudley * Does this person have serious difficulty walking or climbing stairs? Answer Date of Assessment Author No 01/31/2025 10:52 AM EDT Kathleen Flor BoltonSERA * Does this person have difficulty dressing or bathing? Answer Date of Assessment Author No 01/31/2025 10:52 AM EDT Kathleen Flor BoltonSERA * Because of a physical, mental or [...] No 01/31/2025 10:52 AM EDT Flor Wang XIAOGt documented in this encounter Miscellaneous Notes * Telephone Encounter - Flor Wang RMA - 06/15/2025 2:43 PM EDT Msg sent to patient * Telephone Encounter - Beti Jean Baptiste MD - 06/15/2025 2:10 PM EDT MRI brain was normal. Continue treatment for migraine with as needed Nurtec and follow-up with neurology. documented in this encounter Plan of Treatment Upcoming Encounters Date Type Department Care Team (Late st Contact Info) Description 08/08/2025 2:00 PM EDT Office Visit SEP Neurology [facility] [address] [place] [address] Aria Juan MD [address] [place] [address] documented as of this encounter Goals Goal Patient Goal Type Associated Problems Recent Progress Patient-Stated? Author Blood Pressure < 140/90 Blood Pressure 148/78(2024 8:37 AM EDT) Shanique Licona APRN Maintain a healthy diet, exercise regularly and maintain an ideal body weight General No Paula Hopkins RMA documented as of this encounter Visit Diagnoses Diagnosis Episodic migraine- Primary documented in this encounter Discontinued Medications Medication Sig Discontinue Reason Start Date End Da te acetaZOLAMIDE (DIAMOX) 250 mg Oral TabletIndications:Intract able headache, unspecified chronicity pattern, unspecified headache type Take 1 Tablet by mouth 2 times daily. Alternate therapy 05/25/2025 06/15/2025 documented as of this encounter Care Teams Lead Manufacturing Engineering Tech Relationship Specialty Start Date End Date Valerie Wesley MD [address] [place] [address] PCP - General Family Medicine 02/23/12 Shanique Acosta APRN [address] [place] [address] Nurse Practitioner 12/21/15 documented as of this encounter
--- OUTSIDE RECORDS SUMMARY | 2025-07-18 17:39 | XMS_ITS | Clinical Summary ---
Author Organization [facility] Address [address] [place] [address] Phone [email or web address] Care Team Providers Care Grievance And Appeals Coordinator Name Role Phone Unavailable Primary Care Provider [...] Exam 07/20/2021 07/20/2020 Covid-19 Immunization ( season) 2025 11/07/2021, 10/14/2021 Influenza Immunization (#1) 07/10/202507/10, 07/18/2019, [...]
--- OUTSIDE RECORDS SUMMARY | 2025-07-18 17:39 | XMS_ITS | Encounter Summary ---
Author Organization [place] [address] Care Team Providers Care Chip Separator Name Role Phone Valerie Wesley MD Primary Care Provider +- [phone] Shanique Acosta TEST DESIGN ENGINEER Unavailable [phone] Encounter Details Date Type Department Care Team (Late Contact Info) Description 05/01/2016 Orders Only SEP Gastro [facility] [address] [facility] [address] [place] [address] Osmin Mendez MD Social History Tobacco Use [...] EDT Office Visit SEP Neurology [facility] [address] [place] [address] Aria Juan MD [address] [place] [address] documented as of this encounter Procedures Procedure Name Priority Date/Time Associated Diagnosis Comments GMED EGD Routine 05/01/2016 9:45 AM EDT documented in this encounter Results * GMED EGD (05/01/2016 9:45 AM EDT) 05/01/2016 9:45 AM EDT Impressions [facility] - 05/01/2016 9:45 AM EDT Normal mucosa in the whole esophagus. Altered mucosal texture and nodularity in the fundus. (Biopsy). Normal mucosa in the whole examined duodenum. (Biopsy). Plan: Await pathology results This section is an excerpt of the full report. Osmin Mendez MD GI PROCEDURE ORDERABLES Final R esult [facility] [address] [place] [address] documented in this encounter Visit Diagnoses Not on filedocumented in this encounter Additional Health Concerns Infection Onset Date Last Indicated Resolved Time R/O COVID-19 03/15/2021 03/15/2021 03/16/2021 2:07 AM EDT documented as of this encounter Care Teams Chip Separator Relationship Specialty Start Date End Date Valerie Wesley MD [address] [place] [address] PCP - General Family Medicine 02/23/12 Shanique Acosta APRN [address] [place] [address] Nurse Practitioner 12/21/15 documented as of this encounter
--- OUTSIDE RECORDS SUMMARY | 2025-07-18 17:40 | XMS_ITS | Encounter Summary ---
Author Organization [place] [address] Care Team Providers Care Hand Hose Cutter Name Role Phone Valerie Wesley MD Primary Care Provider [phone] Shanique Acosta CYBER SECURITY ANALYST Unavailable [phone] Encounter Details Date Type Department Care Team (Late st Contact Info) Description 11/24/2022 Hospital Encounter [facility] [address] [facility] [address] [place], [place] [id number] Social History Tobacco Use Types Packs/Day Years [...] 2:00 PM EDT Office Visit SEP Neurology [facility] [address] [place] [address] Aria Juan MD [address] [place] [address] documented as of this encounter Goals Goal Patient Goal Type Associated Problems Recent Progress Patient-Stated? Author Blood Pressure < 140/90 Blood Pressure 148/78(2024 8:37 AM EDT) No Acosta, Shanique S, CYBER SECURITY ANALYST Maintain a healthy diet, exercise regularly and maintain an ideal body weight General No Paula Hopkins, A documented as of this encounter Visit Diagnoses Not on filedocumented in this encounter Care Teams Hand Hose Cutter Relationship Specialty Start Date End Date Valerie Wesley MD [address] [place] [address] PCP - General Family Medicine 02/23/12 Shaniqeu Acosta APRN [address] [place] [address] Nurse Practitioner 12/21/15 documented as of this encounter
--- OUTSIDE RECORDS SUMMARY | 2025-07-18 17:40 | XMS_ITS | Encounter Summary ---
Author Organization [place] [address] Care Team Providers Care Acetylene Plant Operator Name Role Phone Valerie Wesley MD Primary Care Provider Shanique Acosta NATURAL GAS TRADER Unavailable [phone] Reason for Visit * Reason Onset Date Comments Prior Authorization 05/30/2025 PA submitted for Nurtec 75mg tablet Approved Encounter Details Date Type Department Care Team (Late st Contact Info) Description 05/30/2025 Telephone SEP [facility] [address] [facility] [place] [address] Shanique Acosta, NATURAL GAS TRADER [address] [place] [address] Prior Authorization (PA submitted for [...] EDT PA for Nurtec 75mg tablet APPROVED. CaseId:[id number];Status:Approved;Review Type:Prior Auth;Coverage Start Date:04/30/2025;Coverage EndDate:05/30/2026; * Telephone Encounter - Rosita Montaño MA - 05/30/2025 10:45 AM EDT PA submitted for Nurtec 75mg tablet documented in this encounter Plan of Treatment Upcoming Encounters Date Type Department Care Team (Late st Contact Info) Description 08/08/2025 2:00 PM EDT Office Visit SEP Neurology [facility] [address] [place] [address] Aria Juan MD [address] [place] [address] documented as of this encounter Goals Goal Patient Goal Type Associated Problems Recent Progress Patient-Stated? Author Blood Pressure < 140/90 Blood Pressure 148/78(2024 8:37 AM EDT) No Shanique Acosta APRN Maintain a healthy diet, exercise regularly and maintain an ideal body weight General No Paula Hopkins RMA documented as of this encounter Visit Diagnoses Not on filedocumented in this encounter Care Teams Acetylene Plant Operator Relationship Specialty Start Date End Date Valerie Wesley MD [address] [place] [address] PCP - General Family Medicine 02/23/12 Shanique Acosta APRN [address] [place] [address] Nurse Practitioner 12/21/15 documented as of this encounter
--- OUTSIDE RECORDS SUMMARY | 2025-07-18 17:40 | XMS_ITS | Encounter Summary ---
Author Organization [place] [address] Care Team Providers Care Stereo Compiler Name Role Phone Valerie Wesley MD Primary Care Provider +1- [phone] Shanique Acosta SUPERVISORY CBP OFFICER Unavailable Encounter Details Date Type Department Care Team (Late st Contact Info) Description 05/30/2025 Orders Only [facility]P [facility] [address] [facility] [place] [address] Shanique Acosta, SUPERVISORY CBP OFFICER [address] [place] [address] Episodic migraine (Primary Dx) Social [...] Office Visit SEP Neurology [facility] [address] [place] [address] Aria Juan MD [address] [place] [address] documented as of this encounter Goals Goal [...] Primary documented in this encounter Care Teams Stereo Compiler Relationship Specialty Start Date End Date Valerie Wesley MD [address] [place] [address] PCP - General Family Medicine 02/23/12 Shanique Acosta APRN [address] [place] [address] Nurse Practitioner 12/21/15 documented as of this encounter
--- OUTSIDE RECORDS SUMMARY | 2025-07-18 17:40 | XMS_ITS | Encounter Summary ---
Author Organization [facility] [address] Care Team Providers Care Junior Architect Name Role Phone Valerie Wesley MD Primary Care Provider +1- [phone] Shanique Acosta CATERING AND EVENTS MANAGER Unavailable [phone] Encounter Details Date Type Department Care Team [...] 2:00 PM EDT Office Visit SEP Neurology [facility] [address] [place] [address] Aria Juan MD [address] [place] [address] documented as of this encounter Goals Goal Patient Goal Type Associated Problems Recent Progress Patient-Stated? Author Blood Pressure < 140/90 Blood Pressure 148/78(2024 8:37 AM EDT) No Shanique Acosta APRN Maintain a healthy diet, exercise regularly and maintain an ideal body weight General No Paula Hopkins RMA documented as of this encounter Visit Diagnoses Not on filedocumented in this encounter Care Teams Junior Architect Relationship Specialty Start Date End Date Valerie Wesley MD [address] [place] [address] PCP - General Family Medicine 02/23/12 Shanique Acosta APRN [address] [place] [address] Nurse Practitioner 12/21/15 documented as of this encounter
--- OUTSIDE RECORDS SUMMARY | 2025-07-18 17:40 | XMS_ITS | Encounter Summary ---
Author Organization [place] [address] Care Team Providers Care Blow Off Worker Name Role Phone Valerie Wesley MD Primary Care Provider Shanique Acosta METAL CONTAINER MAKER Unavailable [phone] Reason for Visit * Reason Onset Date Comments Prior Authorization 06/08/2025 MRI of Brain Encounter Details Date Type Department Care Team (Late st Contact Info) Description 06/08/2025 Telephone [facility] [address] [facility] [place] [address] Valerie Wesley MD [address] [place] [address] Prior Authorization (MRI of Brain) [...] will be getting her Mri done at [facility] and was told thatthey will need a PA submitted before they are able to schedule patient for the MRI. [facility] Main line is [phone] & isabelle Herrera dept fax is [phone] documented in this encounter Plan of Treatment Upcoming Encounters Date Type Department Care Team (Late st Contact Info) Description 08/08/2025 2:00 PM EDT Office Visit [facility] Neurology [facility] [address] [place] [address] Aria Juan MD [address] [place] [address] documented as of this encounter Goals Goal Patient Goal Type Associated Problems Recent Progress Patient-Stated? Author Blood Pressure < 140/90 Blood Pressure 148/78(2024 8:37 AM EDT) No Shanique Acosta APRN Maintain a healthy diet, exercise regularly and maintain an ideal body weight General No Paula Hopkins, [facility] documented as of this encounter Visit Diagnoses Not on filedocumented in this encounter Care Teams Blow Off Worker Relationship Specialty Start Date End Date Valerie Wesley MD [address] [place] [address] PCP - General Family Medicine 02/23/12 Shanique Acosta APRN [address] [place] [address] Nurse Practitioner 12/21/15 documented as of this encounter
--- OUTSIDE RECORDS SUMMARY | 2025-07-18 17:40 | XMS_ITS | Encounter Summary ---
Author Organization [place] [address] Care Team Providers Care Falsework Builder Name Role Phone Valerie Wesley MD Primary Care Provider [phone]- [phone] Shanique Acosta KNOT SAW OPERATOR Unavailable [phone] Reason for Visit * Reason Onset Date Comments Other 06/05/2025 mri order to be sent to [facility] Encounter Details Date Type Department Care Team (Late st Contact Info) Description 06/05/2025 Telephone [facility] [address] [facility] [place] [address] Valerie Wesley MD [address] [place] [address] Other (mri order to be sent to [facility]) Social History Tobacco Use Types Packs/Day [...] asking for it to be sent to [facility] When is this needed by: nicole Where does this information need to go: pcp Return Method of Communication: Phone Call Additional information:N/A documented in this encounter Plan of Treatment Upcoming Encounters Date Type Department Care Team (Late st Contact Info) Description 08/08/2025 2:00 PM EDT Office Visit SEP Neurology [facility] [address] [place] [address] Aria Juan MD [address] [place] [address] documented as of this encounter [...] on filedocumented in this encounter Care Teams Falsework Builder Relationship Specialty Start Date End Date Valerie Wesley MD [address] [place] [address] PCP - General Family Medicine 02/23/12 Shanique Acosta APRN [address] [place] [address] Nurse Practitioner 12/21/15 documented as of this encounter
--- OUTSIDE RECORDS SUMMARY | 2025-07-18 17:40 | XMS_ITS | Encounter Summary ---
Author Organization [place] [address] Care Team Providers Care Steel Plate Printer Name Role Phone Valerie Wesley MD Primary Care Provider [phone]- [phone] Shanique Acosta RAMP SERVICE EMPLOYEE Unavailable [phone] Reason for Visit * Reason Onset Date Comments Advice Only 05/25/2025 Encounter Details Date Type Department Care Team (Late st Contact Info) Description 05/25/2025 Telephone [facility] [address] [place] [address] Domonique Dominguez LPN Advice Only [...] Author No 01/31/2025 10:52 AM EDT Flor Wagn BoltonSERA * Does this person have serious [...] - 05/25/2025 11:52 AM EDT PC to [facility] to set up STAT Mri per order. They will not schedule MRI for pt r/t no prior authorization for service. PC to pt to notify- states I would still like to have the mri at [place], if I can. Referral number given to pt. Pt will call us back if further help is needed. documented in this encounter Plan of Treatment Upcoming Encounters Date Type Department Care Team (Late st Contact Info) Description 08/08/2025 2:00 PM EDT Office Visit SEP Neurology [facility] [address] [place] [address] Aria Juan MD [address] [address] documented as of this encounter Goals Goal Patient Goal Type Associated Problems Recent Progress Patient-Stated? Author Blood Pressure < 140/90 Blood Pressure 148/78(2024 8:37 AM EDT) No Shanique Acosta APRN Maintain a healthy diet, exercise regularly and maintain an ideal body weight General No Paula Hopkins RMA documented as of this encounter Visit Diagnoses Not on filedocumented in this encounter Care Teams Steel Plate Printer Relationship Specialty Start Date End Date Valerie Wesley MD [address] [place] [address] PCP - General Family Medicine 02/23/12 Shanique Acosta APRN [address] [place] [address] Nurse Practitioner 12/21/15 documented as of this encounter
--- OUTSIDE RECORDS SUMMARY | 2025-07-18 17:40 | XMS_ITS | Encounter Summary ---
Author Organization [place] [address] Care Team Providers Care Paper Bag Press Operator Name Role Phone Valerie Wesley MD Primary Care Provider [phone]- [phone] Shanique Acosta MEAT BUTCHER Unavailable [phone] Reason for Visit * Reason Onset Date Comments Prior Authorization 05/25/2025 MRI Encounter Details Date Type Department Care Team (Late st Contact Info) Description 05/25/2025 Telephone [facility] [address] [facility] [place] [address] Valerie Wesley MD [address] [place] [address] Prior Authorization (MRI ) Social [...] 2:00 PM EDT Office Visit SEP Neurology [facility] [address] [place] [address] Aria Juan MD [address] [place] [address] documented as of this encounter Goals Goal Patient Goal Type Associated Problems Recent Progress Patient-Stated? Author Blood Pressure < 140/90 Blood Pressure 148/78(2024 8:37 AM EDT) No Shanique Acosta APRN Maintain a healthy diet, exercise regularly and maintain an ideal body weight General No Paula Hopkins RMA documented as of this encounter Visit Diagnoses Not on filedocumented in this encounter Care Teams Paper Bag Press Operator Relationship Specialty Start Date End Date Valerie Wesley MD [address] [place] [address] PCP - General Family Medicine 02/23/12 Shanique Acosta APRN [address] [place] [address] Nurse Practitioner 12/21/15 documented as of this encounter
--- OUTSIDE RECORDS SUMMARY | 2025-07-18 17:40 | XMS_ITS | Encounter Summary ---
Author Organization [place] [address] Care Team Providers Care Landscape Drafter Name Role Phone Valerie Wesley MD Primary Care Provider Shanique Acosta PIN MACHINE TENDER Unavailable [phone] Reason for Visit * Reason Onset Date Comments Prior Authorization 06/08/2025 PA submitted for Zepbound 5mg pen Approved Encounter Details Date Type Department Care Team (Late st Contact Info) Description 06/08/2025 Telephone [facility] 300 [facility] [place] [address] Shanique Acosta, PIN MACHINE TENDER [address] [place] [address] Prior Authorization (PA submitted for [...] EDT PA for Zepbound 5mg pen APPROVED. CaseId:[id number];Status:Approved;Review Type:Prior Auth;Coverage Start Date:05/09/2025;Coverage EndDate:06/08/2026;. Authorization Expiration Date: June 08, 2026. * Telephone Encounter - Rosita Montaño MA - 06/08/2025 9:39 AM EDT PA submitted for Zepbound 5mg pen documented in this encounter Plan of Treatment Upcoming Encounters Date Type Department Care Team (Late st Contact Info) Description 08/08/2025 2:00 PM EDT Office Visit SEP Neurology [facility] [address] [place] [address] Aria Juan MD [address] [place] [address] documented as of this encounter [...] on filedocumented in this encounter Care Teams Landscape Drafter Relationship Specialty Start Date End Date Valerie Wesley MD [address] [place] [address] PCP - General Family Medicine 02/23/12 Shanique Acosta APRN [address] [place] [address] Nurse Practitioner 12/21/15 documented as of this encounter
[2025-07-18 19:21] LABS: Free T4 (Free Thyroxine) 1.28 ng/dl (0.78-2.19)
[2025-07-18 19:35] LABS: Thyroid Stimulating Hormone 2.59 uIU/mL (0.465-4.68)
== END 2025-07-18 23:59 | disposition home or self-care (01) ==
LOC: LAB 17:37
PROVIDERS: PCP Nurse Practitioner; Visit Provider Nurse Practitioner
DX: E03.9 Hypothyroidism, unspecified (principal)
CPT/HCPCS: 36415; 84439; 84443

== ENCOUNTER 2025-07-19 11:34 | Outpatient (CLI) | payer BC, SELFPAY ==
--- OUTSIDE RECORDS SUMMARY | 2025-05-25 08:30 | XMS_ITS | Encounter Summary ---
Author Organization [place] [address] Care Team Providers Care Marketing Intern Name Role Phone Valerie Wesley MD Primary Care Provider [phone]- [phone] Shanique Acosta PIECE WORK INSPECTOR Unavailable [phone] Reason for Referral * Consultation (Emergency) - Authorization Not Needed Specialty Diagnoses / Procedures Referred By Contac t Referred To Contact Neurology Diagnoses Acute intractable headache, unspecified headache type Procedures [place] OFFICE/OUTPATIENT NEW MODERATE MDM 45 MINUTES Beti Jean Baptiste MD [address] [place] [address] Phone: tel: fax: [facility] Neurology [address] [place] [phone] Phone: tel: fax: Referral ID Status Reason Start Date Expiration Date Visits Requested Visits Authorized [id number] Authorization Not Needed 05/25/2025 05/25/2026 99 99 * MRI/CAT Scan (Emergency) - Pending Review Specialty Diagnoses / Procedures Referred By Contac t Referred To Contact Radiology Diagnoses Acute intractable headache, unspecified headache type Procedures MRI BRAIN W WO CONTRAST Beti Jean Baptiste MD [address] [place] [address] Phone: tel: fax: Referral ID Status Reason Start Date Expiration Date V isits Requested Visits Authorized [id number] Pending Review 05/25/2025 05/25/2026 1 1 Reason for Visit * Reason Comments Headache still not going away after shot and taking bp med Encounter Details Date Type Department Care Team (Latest Contact Info) Description 05/25/2025 8:30 AM EDT Office Visit [facility] [address] [facility] [place] [address] Beti Jean Baptiste MD [address] [place] [address] Intractable headache, unspecified chronicity pattern, [...] End Date acetaZOLAMIDE (DIAMOX) 250 mg Oral TabletIndications: Intractable headache, unspecified chronicity pattern, unspecified headache type Take 1 Tablet by mouth 2 times daily. 60 Tablet 2 05/25/2025 06/15/2025 documented in this encounter Progress Notes * [...] the patient for the first time. Sent Digital [employer] message to Shanique who is out this [...] this point. Medications: - Bupropion 150 mg (67-enmq-kqacow once or twice daily?) - Adderall 10 [...] The provider educated the patient (or legal sales representative consultant) on the use of the ambient listening artificial intelligence tool, [employer]. They were informed that this AI tool [...] of such information, the patient (or legal sales representative consultant), and each individual in attendance with the patient, verbally consented to the use of the AI tool. documented in this encounter Plan of Treatment Upcoming Encounters Date Type Department Care Team (Late st Contact Info) Description 08/08/2025 2:00 PM EDT Office Visit SEP Neurology [facility] [address] [place] [address] Aria Juan MD [address] [place] [address] Scheduled Orders Name Type Priority [...] an ideal body weight General No Paula Hopkins RMA documented as of this encounter Procedures Procedure Name Priority Date/Time Associated Diagnosis Comments SCANNED LABS 06/27/2025 3:01 PM EDT documented in this encounter Results * SCANNED LABS (06/27/2025 3:01 PM EDT) 06/27/2025 3:01 PM EDT us Unknown Provider HEMATOLOGY ORDERABLES Final Res ult documented in this encounter Visit Diagnoses Diagnosis Intractable headache, [...] 05/22/2025 added in this encounter Care Teams Marketing Intern Relationship Specialty Start Date End Date Valerie Wesley MD [address] [place] [address] PCP - General Family Medicine 02/23/12 Shanique Acosta APRN [address] [place] [id number] Nurse Practitioner 12/21/15 documented as of this encounter
--- OUTSIDE RECORDS SUMMARY | 2025-07-19 11:38 | XMS_ITS | Encounter Summary ---
Author Organization [place] [address] Care Team Providers Care Brazing Machine Setter Name Role Phone Valerie Wesley MD Primary Care Provider +1- [phone] Shanique Acosta CTC OPERATOR Unavailable [phone] Encounter Details Date Type Department Care Team (Late st Contact Info) Description 11/24/2022 Hospital Encounter [facility] [address] [place], [place] [id number] Social History Tobacco Use Types Packs/Day Years [...] Office Visit SEP Neurology [facility] [address] [place] [address] Aria Juan MD [address] [place] [address] documented as of this encounter Goals Goal Patient Goal Type Associated Problems Recent Progress Patient-Stated? Author Blood Pressure < 140/90 Blood Pressure 148/78(2024 8:37 AM EDT) No Acosta, Shanique S, CTC OPERATOR Maintain a healthy diet, exercise regularly and maintain an ideal body weight General No Paula Hopkins, A documented as of this encounter Visit Diagnoses Not on filedocumented in this encounter Care Teams Brazing Machine Setter Relationship Specialty Start Date End Date Valerie Wesley MD [address] [place] [address] PCP - General Family Medicine 02/23/12 Shanique Acosta APRN [address] [place] [address] Nurse Practitioner 12/21/15 documented as of this encounter
--- OUTSIDE RECORDS SUMMARY | 2025-07-19 11:38 | XMS_ITS | Encounter Summary ---
Author Organization [place] [address] Care Team Providers Care Painter Sign Maintenance Name Role Phone Valerie Wesley MD Primary Care Provider [phone]- [phone] Shanique Acosta RN ANTE PARTUM Unavailable Encounter Details Date Type Department Care Team (Late st Contact Info) Description 05/30/2025 Orders Only SEP [facility] [address] [place] [address] Shanique Acosta, RN ANTE PARTUM [address] [place] [address] Episodic migraine (Primary Dx) Social [...] 2:00 PM EDT Office Visit SEP Neurology [facility] [address] [place] [address] Aria Juan MD [address] [place] [address] documented as of this encounter Goals Goal [...] Primary documented in this encounter Care Teams Painter Sign Maintenance Relationship Specialty Start Date End Date Valerie Wesley MD [address] [place] [address] PCP - General Family Medicine 02/23/12 Shanique Acosta APRN [address] [address] Nurse Practitioner 12/21/15 documented as of this encounter
--- OUTSIDE RECORDS SUMMARY | 2025-07-19 11:38 | XMS_ITS | Encounter Summary ---
Author Organization [place] [address] Care Team Providers Care Composition Worker Name Role Phone Valerie Wesley MD Primary Care Provider + [phone] Shanique Acosta BARREL ENDSHAKER ADJUSTER Unavailable [phone] Reason for Visit * Reason Comments Medication Refill Encounter Details Date Type Department Care Team (Late st Contact Info) Description 07/18/2025 Refill SEP [facility] [address] [facility] [place] [address] Shanique Acosta, BARREL ENDSHAKER ADJUSTER [address] [place] [address] Medication Refill Social History Tobacco [...] 2:00 PM EDT Office Visit SEP Neurology [facility] [address] [place] [address] Aria Juan MD [address] [place] [address] documented as of this encounter Goals [...] unspecified documented in this encounter Care Teams Composition Worker Relationship Specialty Start Date End Date Valerie Wesley MD [address] [place] [address] PCP - General Family Medicine 02/23/12 Shanique Acosta APRN [address] [place] [address] Nurse Practitioner 12/21/15 documented as of this encounter
--- OUTSIDE RECORDS SUMMARY | 2025-07-19 11:38 | XMS_ITS | Encounter Summary ---
Author Organization [facility] [place] [address] Care Team Providers Care Director Learning Name Role Phone Valerie Wesley MD Primary Care Provider +1- [phone] Shanique Acosta CHEMICAL LABORATORY ASSISTANT Unavailable [phone] Encounter Details Date Type Department Care Team [...] 2:00 PM EDT Office Visit SEP Neurology [facility] [address] [place] [address] Aria Juan MD [address] [place] [address] documented as of this encounter Goals Goal Patient Goal Type Associated Problems Recent Progress Patient-Stated? Author Blood Pressure < 140/90 Blood Pressure 148/78(2024 8:37 AM EDT) No Shanique Acosta APRN Maintain a healthy diet, exercise regularly and maintain an ideal body weight General No Paula Hopkins RMA documented as of this encounter Visit Diagnoses Not on filedocumented in this encounter Care Teams Director Learning Relationship Specialty Start Date End Date Valerie Wesley MD [address] [place] [address] PCP - General Family Medicine 02/23/12 Shanique Acosta APRN [address] [place] [address] Nurse Practitioner 12/21/15 documented as of this encounter
--- OUTSIDE RECORDS SUMMARY | 2025-07-19 11:38 | XMS_ITS | Encounter Summary ---
Author Organization [place] [address] Care Team Providers Care Avid Editor Name Role Phone Valerie Wesley MD Primary Care Provider Shanique Acosta [place] HOME PLANNING CONSULTANT SALESPERSON Unavailable [phone] Reason for Visit * Reason Onset Date Comments Results 06/15/2025 Encounter Details Date Type Department Care Team (Late st Contact Info) Description 06/15/2025 Telephone [facility] [address] [facility] [place] [address] Beti Jean Baptiste MD [address] [place] [address] Results Social History Tobacco Use [...] No 01/31/2025 10:52 AM EDT Kathleen Flor BlotonSERA * Does this person have difficulty dressing [...] 2:00 PM EDT Office Visit SEP Neurology [facility] [address] [place] [address] Aria Juan MD [address] [place] [address] documented as of this encounter Goals Goal [...] documented as of this encounter Care Teams Avid Editor Relationship Specialty Start Date End Date Valerie Wesley MD [address] [place] [address] PCP - General Family Medicine 02/23/12 Shanique Acosta APRN [address] [place] [address] Nurse Practitioner 12/21/15 documented as of this encounter
--- OUTSIDE RECORDS SUMMARY | 2025-07-19 11:38 | XMS_ITS | Encounter Summary ---
Author Organization [place] [address] Care Team Providers Care Manufacturing Helper Name Role Phone Valerie Wesley MD Primary Care Provider [phone]- [phone] Shanique Acosta ACID TANK LINER Unavailable [phone] Reason for Visit * Reason Onset Date Comments Advice Only 05/25/2025 Encounter Details Date Type Department Care Team (Late st Contact Info) Description 05/25/2025 Telephone [facility] [address] [place] [address] Domonique Dominguez LPN Advice Only [...] - 05/25/2025 11:52 AM EDT PC to [facility] to set up STAT Mri per order. They will not schedule MRI for pt r/t no prior authorization for service. PC to pt to notify- states I would still like to have the mri at [place], if I can. Referral number given to pt. Pt will call us back if further help is needed. documented in this encounter Plan of Treatment Upcoming Encounters Date Type Department Care Team (Late st Contact Info) Description 08/08/2025 2:00 PM EDT Office Visit SEP Neurology [facility] [address] [place] [address] Aria Juan MD [address] [place] [address] documented as of this encounter Goals Goal Patient Goal Type Associated Problems Recent Progress Patient-Stated? Author Blood Pressure < 140/90 Blood Pressure 148/78(2024 8:37 AM EDT) No Shanique Acosta APRN Maintain a healthy diet, exercise regularly and maintain an ideal body weight General No Paula Hopkins RMA documented as of this encounter Visit Diagnoses Not on filedocumented in this encounter Care Teams Manufacturing Helper Relationship Specialty Start Date End Date Valerie Wesley MD [address] [place] [address] PCP - General Family Medicine 02/23/12 Shanique Acosta APRN [address] [place] [address] Nurse Practitioner 12/21/15 documented as of this encounter
--- OUTSIDE RECORDS SUMMARY | 2025-07-19 11:38 | XMS_ITS | Encounter Summary ---
Author Organization [place] [address] Care Team Providers Care Community Center Coordinator Name Role Phone Valerie Wesley MD Primary Care Provider [phone]- [phone] Shanique Acosta MATERIAL ANALYST Unavailable [phone] Reason for Visit * Reason Onset Date Comments Prior Authorization 05/25/2025 MRI Encounter Details Date Type Department Care Team (Late st Contact Info) Description 05/25/2025 Telephone [facility] [address] [facility] [place] [address] Valerie Wesley MD [address] [place] [address] Prior Authorization (MRI ) Social [...] PM EDT Office Visit SEP Neurology [facility] [address] [place] [address] Aria Juan MD [address] [place] [address] documented as of this encounter Goals Goal Patient Goal Type Associated Problems Recent Progress Patient-Stated? Author Blood Pressure < 140/90 Blood Pressure 148/78(2024 8:37 AM EDT) No Shanique Acosta APRN Maintain a healthy diet, exercise regularly and maintain an ideal body weight General No Paula Hopkins RMA documented as of this encounter Visit Diagnoses Not on filedocumented in this encounter Care Teams Community Center Coordinator Relationship Specialty Start Date End Date Valerie Wesley MD [address] [place] [address] PCP - General Family Medicine 02/23/12 Shanique Acosta APRN [address] [place] [address] Nurse Practitioner 12/21/15 documented as of this encounter
--- OUTSIDE RECORDS SUMMARY | 2025-07-19 11:38 | XMS_ITS | Clinical Summary ---
Author Organization [facility] Address [address] [place] [address] Phone Care Team Providers Care Title Curative Specialist Name Role Phone Valerie Wesley MD Primary Care Provider [phone] Shanique Acosta GRADES 7 8 TUTOR Unavailable [phone] Allergies Active Allergy Reactions Criticality Noted Date [...] Department Care Team Description 07/18/2025 Refill [facility] [address] [place] [address] Shanique Acosta APRN Medication Refill 06/15/2025 Telephone [facility] [address] [place] [address] Beti Jean Baptiste MD Results 06/08/2025 Telephone [facility] [address] [place] [address] Valerie Wesley MD Prior Authorization (MRI of Brain) 06/08/2025 Telephone [facility] [address] [place] [address] Shanique Acosta APRN Prior Authorization (PA submitted for Zepbound 5mg pen Approved) 06/05/2025 Telephone [facility] [address] [facility] [place] [address] Valerie Wesley MD Other (mri order to be sent to [facility]) 05/30/2025 Telephone [facility] [address] [place] [address] Shanique Acosta APRN Prior Authorization (PA submitted for Nurtec 75mg tablet Approved) 05/30/2025 Orders Only [facility] [address] [place] [address] Shanique Acosta APRN Episodic migraine (Primary Dx) 05/25/2025 8:30 AM EDT Office Visit [facility] [address] [place] [address] Beti Jean Baptiste MD Intractable headache, unspecified chronicity pattern, unspecified headache type (Primary Dx) 05/25/2025 Telephone [facility] [place] [address] Valerie Wesley MD Prior Authorization (MRI ) 05/25/2025 Telephone [facility] [address] [facility] [place] [address] Domonique Dominguez LPN Advice Only 05/23/2025 Travel 05/15/2025 11:15 AM EDT Office Visit [facility] [place] [address] Shanique Acosta APRN Essential hypertension [...] BREAST REDUCTION; Surgeon: Mahesh Portillo MD; [facility]; Service: Plastics HYSTEROSCOPY 02/28/2016 N/A HYSTEROSCOPY DILATION AND CURETTAGE CERVICAL BIOPSY ; Surgeon: Chu Desai MD; Location: [facility]; Service: Gynecology UPPER GASTROINTESTINAL [...] Office Visit SEP Neurology [facility] [address] [place] [address] Aria Juan MD [address] [place] [address] Health Maintenance Due Date Last Done [...] 3 Months Insurance ANTHEM PPO Care Teams Title Curative Specialist Relationship Specialty Start Date End Date Valerie Wesley MD [address] [place] [address] PCP - General Family Medicine 02/23/12 Shanique Acosta APRN [address] [place] [address] Nurse Practitioner 12/21/15
--- OUTSIDE RECORDS SUMMARY | 2025-07-19 11:38 | XMS_ITS | Clinical Summary ---
Author Organization [facility] Address [address] [place] [address] Phone [email or web address] Care Team Providers Care Ticket Collector Name Role Phone Unavailable Primary Care Provider [...]
--- OUTSIDE RECORDS SUMMARY | 2025-07-19 11:38 | XMS_ITS | Encounter Summary ---
Author Organization [place] [address] Care Team Providers Care Ambulatory Nurse Name Role Phone Valerie Wesley MD Primary Care Provider [phone]- [phone] Shanique Acosta UPHOLSTERER INSIDE Unavailable [phone] Encounter Details Date Type Department Care Team (Late Contact Info) Description 05/01/2016 Orders Only SEP Gastro [facility] [address] [place] [address] Osmin Mendez MD Social History [...] 2:00 PM EDT Office Visit SEP Neurology [facility] [address] [place] [address] Aria Juan MD [address] [place] [address] documented as of this encounter Procedures Procedure Name Priority Date/Time Associated Diagnosis Comments GMED EGD Routine 05/01/2016 9:45 AM EDT documented in this encounter Results * GMED EGD (05/01/2016 9:45 AM EDT) 05/01/2016 9:45 AM EDT Impressions [facility] - 05/01/2016 9:45 AM EDT Normal mucosa in the whole esophagus. Altered mucosal texture and nodularity in the fundus. (Biopsy). Normal mucosa in the whole examined duodenum. (Biopsy). Plan: Await pathology results This section is an excerpt of the full report. Osmin Mendez MD GI PROCEDURE ORDERABLES Final R esult [facility] [address] [place] [address] documented in this encounter Visit Diagnoses Not on filedocumented in this encounter Additional Health Concerns Infection Onset Date Last Indicated Resolved Time R/O COVID-19 03/15/2021 03/15/2021 03/16/2021 2:07 AM EDT documented as of this encounter Care Teams Ambulatory Nurse Relationship Specialty Start Date End Date Valerie Wesley MD [address] [place] [address] PCP - General Family Medicine 02/23/12 Shanique Acosta APRN [address] [place] [address] Nurse Practitioner 12/21/15 documented as of this encounter
--- OUTSIDE RECORDS SUMMARY | 2025-07-19 11:38 | XMS_ITS | Encounter Summary ---
Author Organization [place] [address] Care Team Providers Care Commercial Lines Account Assistant Name Role Phone Valerie Wesley MD Primary Care Provider Shanique Acosta THREADING MACHINE TENDER Unavailable [phone] Reason for Visit * Reason Onset Date Comments Prior Authorization 05/30/2025 PA submitted for Nurtec 75mg tablet Approved Encounter Details Date Type Department Care Team (Late st Contact Info) Description 05/30/2025 Telephone SEP [facility] [address] [facility] [place] [place] [address] Shanique Acosta, THREADING MACHINE TENDER [address] [place] [address] Prior Authorization (PA submitted for [...] EDT PA for Nurtec 75mg tablet APPROVED. CaseId:[id number];Status:Approved;Review Type:Prior Auth;Coverage Start Date:04/30/2025;Coverage EndDate:05/30/2026; * Telephone Encounter - Rosita Montaño MA - 05/30/2025 10:45 AM EDT PA submitted for Nurtec 75mg tablet documented in this encounter Plan of Treatment Upcoming Encounters Date Type Department Care Team (Late st Contact Info) Description 08/08/2025 2:00 PM EDT Office Visit SEP Neurology [facility] [address] [place] [address] Aria Juan MD [address] [place] [address] documented as of this encounter [...] on filedocumented in this encounter Care Teams Commercial Lines Account Assistant Relationship Specialty Start Date End Date Valerie Wesley MD [address] [place] [address] PCP - General Family Medicine 02/23/12 Shanique Acosta APRN [address] [place] [address] Nurse Practitioner 12/21/15 documented as of this encounter
--- OUTSIDE RECORDS SUMMARY | 2025-07-19 11:38 | XMS_ITS | Encounter Summary ---
Author Organization [place] [address] Care Team Providers Care Digital Sales Manager Name Role Phone Valerie Wesley MD Primary Care Provider Shanique Acosta PRODUCT TECHNOLOGY SCIENTIST Unavailable [phone] Reason for Visit * Reason Onset Date Comments Prior Authorization 06/08/2025 MRI of Brain Encounter Details Date Type Department Care Team (Late st Contact Info) Description 06/08/2025 Telephone [facility] [address] [facility] [place] [address] Valerie Wesley MD [address] [place] [address] Prior Authorization (MRI of Brain) [...] will be getting her Mri done at [facility] and was told thatthey will need a PA submitted before they are able to schedule patient for the MRI. [facility] Main line is [phone] & isabelle Herrera dept fax is [phone] documented in this encounter Plan of Treatment Upcoming Encounters Date Type Department Care Team (Late st Contact Info) Description 08/08/2025 2:00 PM EDT Office Visit [facility] Neurology [facility] [address] [place] [address] Aria Juan MD [address] [place] [address] documented as of this encounter Goals Goal Patient Goal Type Associated Problems Recent Progress Patient-Stated? Author Blood Pressure < 140/90 Blood Pressure 148/78(2024 8:37 AM EDT) No Shanique Acosta APRN Maintain a healthy diet, exercise regularly and maintain an ideal body weight General No Paula Hopkins, [facility] documented as of this encounter Visit Diagnoses Not on filedocumented in this encounter Care Teams Digital Sales Manager Relationship Specialty Start Date End Date Valerie Wesley MD [address] [place] [address] PCP - General Family Medicine 02/23/12 Shanique Acosta APRN [address] [place] [address] Nurse Practitioner 12/21/15 documented as of this encounter
--- OUTSIDE RECORDS SUMMARY | 2025-07-19 11:39 | XMS_ITS | Encounter Summary ---
Author Organization [place] [address] Care Team Providers Care Associate Sales Representative Name Role Phone Valerie Wesley MD Primary Care Provider Shanique Acosta HIDE MILL MAN Unavailable [phone] Reason for Visit * Reason Onset Date Comments Prior Authorization 06/08/2025 PA submitted for Zepbound 5mg pen Approved Encounter Details Date Type Department Care Team (Late st Contact Info) Description 06/08/2025 Telephone [facility] [address] [facility] [place] [address] Shanique Acosta, HIDE MILL MAN [address] [place] [address] Prior Authorization (PA submitted for [...] EDT PA for Zepbound 5mg pen APPROVED. CaseId:[id number];Status:Approved;Review Type:Prior Auth;Coverage Start Date:05/09/2025;Coverage EndDate:06/08/2026;. Authorization Expiration Date: June 08, 2026. * Telephone Encounter - Rosita Montaño MA - 06/08/2025 9:39 AM EDT PA submitted for Zepbound 5mg pen documented in this encounter Plan of Treatment Upcoming Encounters Date Type Department Care Team (Late st Contact Info) Description 08/08/2025 2:00 PM EDT Office Visit [facility] [address] [address] Aria Juan MD [address] [place] [address] documented as of this encounter [...] on filedocumented in this encounter Care Teams Associate Sales Representative Relationship Specialty Start Date End Date Valerie Wesley MD [address] [place] [address] PCP - General Family Medicine 02/23/12 Shanique Acosta APRN [address] [place] [address] Nurse Practitioner 12/21/15 documented as of this encounter
--- OUTSIDE RECORDS SUMMARY | 2025-07-19 11:39 | XMS_ITS | Encounter Summary ---
Author Organization [place] [address] Care Team Providers Care It Security Consulting Director Name Role Phone Valerie Wesley MD Primary Care Provider [phone] Shanique Acosta AUTO BODY SHOP MANAGER Unavailable [phone] Reason for Visit * Reason Onset Date Comments Other 06/05/2025 mri order to be sent to [facility] Encounter Details Date Type Department Care Team (Late st Contact Info) Description 06/05/2025 Telephone [facility] [address] [facility] [address] Valerie Wesley MD [address] [place] [address] Other (mri order to be sent to [facility]) Social History Tobacco Use Types [...] asking for it to be sent to [facility] When is this needed by: nicole Where does this information need to go: pcp Return Method of Communication: Phone Call Additional information:N/A documented in this encounter Plan of Treatment Upcoming Encounters Date Type Department Care Team (Late st Contact Info) Description 08/08/2025 2:00 PM EDT Office Visit [facility] [address] [place] [address] Aria Juan MD [address] [place] [address] documented as [...] on filedocumented in this encounter Care Teams It Security Consulting Director Relationship Specialty Start Date End Date Valerie Wesley MD [address] [place] [address] PCP - General Family Medicine 02/23/12 Shanique Acosta APRN [address] [place] [address] Nurse Practitioner 12/21/15 documented as of this encounter
== END 2025-07-19 23:59 | disposition home or self-care (01) ==
LOC: LAB 11:35
PROVIDERS: PCP Nurse Practitioner; Visit Provider Student in an Organized Health Care Education/Training Program
DX: I10 Essential (primary) hypertension (principal)
CPT/HCPCS: 36415; 82088; 83835; 84244

== ENCOUNTER 2025-09-13 11:29 | Outpatient (CLI) | payer BC, SELFPAY ==
[2025-09-13 13:16] LABS: Free T4 (Free Thyroxine) 0.91 ng/dl (0.78-2.19)
[2025-09-13 13:28] LABS: Thyroid Stimulating Hormone 0.26 uIU/mL (0.465-4.68)
== END 2025-09-13 23:59 | disposition home or self-care (01) ==
LOC: LAB 11:30
PROVIDERS: PCP Nurse Practitioner; Visit Provider Student in an Organized Health Care Education/Training Program
DX: E07.9 Disorder of thyroid, unspecified (principal); I10 Essential (primary) hypertension
CPT/HCPCS: 36415; 82088; 84244; 84439; 84443